=== PATIENT | male | born 1950 | race Caucasian/White ===

== ENCOUNTER 2019-05-11 10:01 | Day surgery (SDC) | payer OTHER, SELFPAY ==
[2019-05-11 10:25] VITALS: BP 112/68; PULSE 55; RESP 18; TEMP 35.4; O2SAT 97
[2019-05-11] MEDS: Lactated Ringers 1,000 ML 80 ML IV (10:35)
[2019-05-11] MEDS: ceFAZolin 1 GM/50 ML BAG IVPB (12:55)
--- NOTE | 2019-05-11 13:06 | BLADDER_PTH ---
PATIENT: Yonatan Cabrera LOC: [facility] U#:[id number] AGE/SX: 68/M ROOM: RE05/11/[address]: Nathanael Hannon MD : [id number] BED: DIS: 05/11/2019 SPEC #: [id number] RECD: 05/11/19 17:59 STATUS: LASHAUN REQ #: [id number] SOWMYA: 05/11/19 13:[address]: Nathanael Hannon DEPT: Surgical Specimen RECD BY: Karen Pugh ENTERED: 05/11/19 18:00 SP TYPE: Bladder OTHR DR: Miky Felipe MD Tissues: 1 - BLADDER BIOPSY Procedures: GROSS AND MICRO LEVEL 4 Comments: [id number]
--- NOTE | 2019-05-11 13:10 | W.PM.DSUDISC ---
Discharge Plan Disposition Patient Disposition: HOME Condition: Stable Discharge Details Reason For Visit: surgery Attending Provider: Nathanael Hannon Primary Care Provider: Miky Felipe Home Meds and New Rx's Prescriptions: No Action multivitamin capsule 1 cap PO DAILY RF: 0 Betimol 5 ML drops 1 drp OU HS RF: 0 acetaminophen [Mapap Extra Strength] 500 MG tablet 500 mg PO PRN PRNRF: 0 Travatan Z 2.5 ML drops 1 drp Ophthalmic HS RF: 0 Discharge Instructions Additional Instructions: No appt needed but ask pt and to call for path report in @ 1 week - his next procedure will depend on the path Activity:: Activity as Tolerated Shower/Bathe:: 24 hours Diet:: As Tolerated Discharge Orders Discharge Orders: Discharge Order (Routine); Ordered 05/11/19 Ordered By: Nathanael Hannon DS: Diagnosis Discharge Diagnosis (1) Bladder cancer: Status: Acute
--- NOTE | 2019-05-12 08:28 | ROE_ITS ---
REPORT OF OPERATIVE PROCEDURE DATE OF PROCEDURE May 11, 2019 PREOPERATIVE DIAGNOSIS Bladder tumor. POSTOPERATIVE DIAGNOSIS Bladder tumor. PROCEDURE Cystoscopy with transurethral resection of small bladder tumor. SURGEON Nathanael Hannon M.D. ANESTHESIA Local. COMPLICATIONS None. FINDINGS Papillary lesion attached to the bladder neck at approximately the 10 o'clock position. HISTORY This is a 68-year-old gentleman who has a history of urothelial cell carcinoma of the bladder. On braeden veillance cystoscopy, he was found to have a recurrence just at the bladder neck. He presents now for transurethral resection of the area. DESCRIPTION OF PROCEDURE The patient was brought to the Operating Room on 05/11/2019. He had requested local anesthesia only. H e was placed in the dorsal lithotomy position. His genitalia was prepped and draped. 2% Xylocaine jel ly was instilled into the urethra to act as a local anesthetic. A #24-Welsh resectoscope sheath was passed through the urethra into the bladder. We utilized an Igle jacob resectoscope with bipolar cautery to excise the visible lesion in its entirety. The lesion was t hen sent to pathology for permanent section. We cauterized the base of the resection site using the coagulation current. The patient tolerated the procedure well with no complications.
== END 2019-05-11 13:40 | disposition home or self-care (01) ==
PROVIDERS: PCP Family Medicine; Visit Provider Urology
PROC: 0TBB8ZZ Excision of Bladder, Via Natural or Artificial Opening Endoscopic (ICD-10-PCS; CPT 52234; principal; 2019-05-11 12:30)
DX: C67.5 Malignant neoplasm of bladder neck (principal)
CPT/HCPCS: 52234; 88305; J0690

== ENCOUNTER 2021-11-30 21:42 | Emergency (ER) | payer MEDICARE, SELFPAY ==
[2021-11-30] VITALS (13 sets, daily range): BP systolic 131–155; BP diastolic 61–68; PULSE 87–103; RESP 18–27; TEMP 36.5; O2SAT 93–99
[2021-11-30 21:57] LABS: Bilirubin Negative (Negative); Blood Negative (Negative); Clarity Clear (Clear); Glucose Negative (Negative); Ketones Negative (Negative); Leukocyte Esterase Negative (Negative); Nitrite Negative (Negative); Urobilinogen 0.2 EU/dL (Up TO 0.2); pH 5.5 (5-8)
--- NOTE | 2021-11-30 22:00 | DI.RAD_ITS ---
Exam(s) XR PORTABLE CHEST AP EXAM: XR PORTABLE CHEST AP CLINICAL HISTORY: cough. TECHNIQUE: 2D digital imaging was performed. COMPARISON: Prior chest CT scan of 10/08/2021 FINDINGS: Heart size is upper normal. The upper mediastinum is not widened. Retrocardiac hiatal hernia again noted. Right lung is clear. There are mild increased markings behind the left side of the heart in the left lower lobe, possibly significant. There are no pleural effusions. No pneumothorax. No pulmonary e angelic. IMPRESSION: Mild increased markings in the left lower lobe retrocardiac region. Appropriate follow-up recommende d. Please note that CT scan of 10/08/2021 did reveal a ground-glass nodular infiltrate in the right lowe r lobe as well as a smaller 3 millimeter nodule lower down in the right lower lobe. Recommend follow -up CT. Findings discussed with ER physician. DATA REPOSITORY: RADIATION DOSE DELIVERED: All CT scans at this facility use at least one of these dose optimization techniques: automated exposure control; mA and/or kV adjustment per patient size (includes targeted e xams where dose is matched to clinical indication); or iterative reconstruction.
--- NOTE | 2021-11-30 22:00 | DI.CT_ITS ---
Exam(s) CT ABDOMEN PELVIS W EXAM: CT ABDOMEN PELVIS W CLINICAL HISTORY: right sided abdominal pain. TECHNIQUE: Imaging Protocol: Axial computed tomography images with coronal and sagittal reformatted images were created and reviewed CONTRAST MATERIAL: Intravenous: Omnipaque 350 Contrast volume:100 ml Oral:/ no COMPARISON: CT RENAL COLIC WO CONTRAST from 04/09/2016 FINDINGS: ABDOMEN: Lung Bases: Normal where visualized. Liver: Enlarged, fatty infiltration. Low-density lesions, likely cysts. Small amount of portal veno us air at the periphery of the liver... No measurable mass. Gallbladder and biliary tract: No radiodense calculus or dilation. Pancreas: Multiple calcifications., no inflammatory process. To stomach and bowel: Moderate size hia michael hernia. Stomach not distended. Spleen: Normal. Kidneys: Normal size, contour and axis. Parapelvic cyst mid left kidney. No radiodense stones or ob structive uropathy. No masses seen. Adrenal glands: No masses seen. Abdominal Aorta: Abdominal portion non-dilated. Atherosclerotic calcification. PELVIS: Bladder: Nearly empty. No gross wall thickening. No calculi.No focal mass. Bowel: Marked inflammation and wall thickening involving the ascending colon. Multiple diverticula a re present. The findings are suspicious for diverticulitis. There is a question of a few tiny surro unding of bubbles of air outside the colonic lumen versus air within small diverticula. . A necrotic mass could also be considered. Appendix normal. Peritoneal cavity: Small amount of fluid low pelvis., no abscess collection.. Bones: Degenerative disc changes greatest L5-S1. Facet degenerative changes. Degenerative stable cy stic lucencies in both acetabula, left greater than right. Subchondral cysts are also seen in the le ft femoral head. Reproductive organs: Within normal limits. Lymph nodes: Unremarkable. Soft tissues: Large right inguinal hernia containing nonobstructed loops of bowel. This was present on the previous exam. Fatty containing left-sided inguinal hernia, small. Tiny fatty containing umb ilical hernia. Impression: Marked wall thickening ascending colon with surrounding inflammation, consistent with diverticulitis. A necrotic mass could also be considered. A small amount of portal venous air seen in the peripher y of the liver near the diaphragm. RADIATION DOSE DELIVERED: 1,165.45mGy.cm Total DLP DATA REPOSITORY: All CT scans at this facility are submitted to the National Radiology Data Registry (NRDR) Dose Index Registry (DIR) with the [employer] (A[employer]). RADIATION OPTIMIZATION: All CT scans at this facility use at least one of these dose optimization te chniques: automated exposure control; mA and/or kV adjustment per patient size (includes targeted exa ms where dose is matched to clinical indication); or iterative reconstruction.
[2021-11-30] MEDS: Normal Saline 1,000 ML 1000 ML IV (22:05)
--- NOTE | 2021-11-30 22:07 | ED.GENADUL_ITS ---
Discharge Plan Disposition Patient Disposition: HOME Condition: Stable Discharge Details Clinical Impression: Abdominal pain, Diverticulitis Primary Care Provider: Kassy Urbina ED Provider: Jeronimo Guillen Home Meds and New Rx's Prescriptions: New metronidazole 500 mg tablet 500 mg PO Q8H Qty: 21 RF: 0 ciprofloxacin HCl 500 mg tablet 500 mg PO BID Qty: 14 RF: 0 Continued multivitamin capsule 1 cap PO DAILY RF: 0 acetaminophen [Mapap Extra Strength] 500 MG tablet 500 mg PO PRN PRNRF: 0 Discharge Instructions Instructions: Diverticulitis (ED) Additional Instructions: you can take 1000mg tylenol and 600mg ibuprofen every 6 hours as needed do not drink alcohol or drive if you take the oxycodone follow up with your primary care provider within 1 week if you feel more ill, have severe worsening pain or fever return to the [facility] department Medical Decision Making 71 yo male chronic smoker with prior history of bladder cancer treated surgically via cystoscopy, who comes in with right sided abdominal pain starting around 5pm tonight. He denies vomit, fevers, chills, dyspnea or chest pain. He does state family memebers have recently tested positive for covid and he does have a dry cough that he is not sure is changed from his baseline smoker's cough. He is vaccinated and has a booster for covid. He is in no distress on exam. He does have a reducible umbilical hernia that is not tender and also has a hernia in the right inguinal canal that is not tender or warm to touch and no erythema and states he has had these hernias for years. He is tender with palpation tot he rlq not near his hernia, no testicle tenderness or swelling. Given location of pain concern for appendicitis, will obtain labs and CT to further evaluate, and given his covid exposure and cough obtain covid test and cxr. labs show wbc of 13, otherwise no acute findings, ct shows no evidence of appendicitis but does show evidence of diverticulitis. On repeat exam he is sleeping and states pain significantly improved. Has mild tenderness in the rlq and llq, no guarding or rebound. He is stable for d/c, will place on antibiotics and advised to f/u with pcp and return precautions given Differential Diagnosis Differential Diagnosis: appendicitis, sbo, pancreatitis Medical Records Medical records reviewed: Yes I reviewed the patient's medical records. Imaging Data Radiologic Study: Attestation: I personally reviewed and interpreted this imaging study as follows: Imaging: X-Ray Radiologist's impression: no acute findings Radiologic Study #2: Attestation: I personally reviewed and interpreted this imaging study as follows: Imaging: CT Scan Radiologist's impression: IMPRESSION: Mural thickening and adjacent inflammatory change of the ascending colon suggesting acute diverticulitis versus less likely focal infectious/inflammatory colitis . Lab Data Lab results reviewed: Yes I reviewed the patient's lab results. HPI General Mode of arrival: ambulatory . Date/Time Provider Initiated Documentation: 11/30/21 21:44 . Limitations to Documentation: no limitations . Information obtained by: patient . History of Present Illness 71 year old M presents to the emergency department with the chief complaint of abdominal pain, described as severe, with intensity rated at 8. Quality is described as sharp, and is localized to the abdomen. Patient reports no radiation. Patient started experiencing this hour(s) (5) and it has been constant. No relieving factors improve symptom(s), No exacerbating factors reported . Patient notes cough. Patient did receive the following treatments prior to arrival, none Related Data Home Medications Medication Instructions Recorded Confirmed acetaminophen [Mapap Extra 500 mg PO PRN PRN 12/17/16 11/30/21 Strength] multivitamin 1 cap PO DAILY 09/23/18 11/30/21 ciprofloxacin HCl 500 mg PO BID #14 tab 11/30/21 metronidazole 500 mg PO Q8H #21 tab 11/30/21 Previous Rx's Medication Instructions Recorded ciprofloxacin HCl 500 mg PO BID #14 tab 11/30/21 metronidazole 500 mg PO Q8H #21 tab 11/30/21 Allergies Allergy/AdvReac Type Severity Reaction Status Date / Time No Known Allergies Allergy Unverified 11/30/21 22:20 General Stated Complaint: Abd Prob LATOSHA: 3 Review of Systems All systems reviewed & are unremarkable except as noted in HPI and below Constitutional Constitutional: Denies chills, Denies fever(s) and Denies weakness Cardiovascular Cardiovascular: Denies chest pain and Denies dyspnea Respiratory Respiratory: Denies dyspnea Gastrointestinal Gastrointestinal: Denies vomiting Musculoskeletal Musculoskeletal: Denies joint swelling Neurologic Neurologic: Denies weakness PFSH All Active Problems (Updated 11/30/21 @ 23:14 by Jeronimo Guillen MD) Abdominal pain (Acute) Diverticulitis (Chronic) Parapelvic renal cyst (Acute) Renal mass (Acute) 03/2021- noted on CT- US recommended and ordered Abnormal chest CT (Acute) 03/2021- repeat in 6 months Bladder cancer (Acute) 2015 Bilateral inguinal hernia, without obstruction or gangrene, not specified as recurrent (Acute 04/09/16) Medical History (Updated 11/30/21 @ 23:14 by Jeronimo Guillen MD) Bladder tumor (12/17/16) DR. RAHMAN Malignant neoplasm of overlapping sites of bladder (07/15/16) paillary urothelial, non invasive, multiple sites Polymyalgia rheumatica (11/11/15) Surgical History Hx of cystoscopy Hx of foot surgery Hx of transurethral resection of prostate Social History Smoking/Tobacco Use Status: Current every day Tobacco Type: cigarettes Smoking risk assessment performed?: Yes Alcohol Intake: current Alcohol Intake frequency: holidays/special occasions only Drug use: Never Substance use type: does not use Details: alcohol: t-4, 3 maximo lemonade Do you feel safe at home: Yes Do you feel safe in your relationship?: Yes Exam Const General: no acute distress Orientation: alert HENMT Head: normal to inspection Ears: external ears normal General nose exam: external nose normal Mouth: moist mucous membranes Eyes General: appearance normal, both eyes and all related structures Neck Neck: normal visual inspection Resp Effort & Inspection: normal respiratory effort and able to speak in complete sentences Cardio Rate: regular rate GI Palpation: soft and tender Skin General skin exam: no rashes or lesions noted Neuro General: patient alert and patient oriented x3 Extrem General: normal to inspection Psych Mental Status: mental status grossly normal Course Vital Signs Vital signs: Vital Signs Temperature 36.5 C 11/30/21 21:45 Pulse 101 H 11/30/21 21:45 Respiratory Rate 20 11/30/21 21:45 Blood Pressure 154/68 H 11/30/21 21:45 Pulse Oximetry 99 11/30/21 21:45 Temperature 36.5 C 11/30/21 21:45 Temperature Source Skin 11/30/21 21:45 Pulse 101 H 11/30/21 21:45 Respiratory Rate 20 11/30/21 21:45 Blood Pressure 154/68 H 11/30/21 21:45 Blood Pressure Position Supine 11/30/21 21:45 Pulse Oximetry 99 11/30/21 21:45 Oxygen Delivery Method Room Air 11/30/21 21:45 Oxygen Flow Rate 0 11/30/21 21:45 Pain Level 5 11/30/21 21:45 Lab/Test Results Lab/Test Results: Laboratory Tests Range/Units 11/30/21 21:50 Urine Color (Yellow) Yellow Urine Clarity (Clear) Clear Urine pH (5-8) 5.5 Ur Specific Wrights (1.005-1.025) 1.020 Urine Protein (Negative) mg/dL Negative Urine Ketones (Negative) mg/dL Negative Urine Blood (Negative) Negative Urine Nitrite (Negative) Negative Urine Bilirubin (Negative) Negative Urine Urobilinogen (Up TO 0.2) EU/dL 0.2 Ur Leukocyte Esterase (Negative) Negative Urine Glucose (Negative) mg/dL Negative
[2021-11-30 22:16] LABS: Abs Immature Grans 0.05 10^3/uL (0.0-0.06); Absolute Basophil Count 0.03 10^3/uL (0.0-0.2); Absolute Lymphocyte Count 1.62 10^3/uL (1.2-3.4); Absolute Monocyte Count 0.64 10^3/uL (0.1-0.8); BE (Venous) -1 mmol/L (-2-3); Basophils % 0.2; Eosinophils % 0.6; HCO3 (Venous) 26 mmol/L (23-28); HCT 42.2 % (40.0-50.0); HGB 14.1 g/dL (13.5-17.5); Immature Grans % 0.4; Lymphocytes % 11.6; MCH 32.6 pg (27.0-33.0); MCHC 33.4 % (32.0-36.0); MCV 97.7 fL (80-95); MPV 8.7 fL (8.0-11.0); Monocytes % 4.6; Neutrophils % 82.6; Nucleated RBC 0 %; O2 Sat (Venous) 56 %; Platelet Count 282 10^3/uL (130-400); RBC 4.32 10^6/uL (4.36-5.78); RDW 12.3 % (11.8-14.1); RDW-SD 44.7 fL; TCO2 (Venous) 23 mmol/L (24-29); WBC 13.93 10^3/uL (4.4-10.8); pCO2 (Venous) 49 mmHg (41-51); pH (Venous) 7.33 (7.31-7.41); pO2 (Venous) 30 mmHg
[2021-11-30 22:17] LABS: Absolute Eosinophil Count 0.08 10^3/uL (0.0-0.7); Absolute Neutrophil Count 11.51 10^3/uL (1.2-6.7); Lactate 1.3 mmol/L (0.6-1.4)
[2021-11-30] MEDS: HYDROmorphone 2 MG/ML VIAL 1 MG IVP (22:19)
[2021-11-30 22:22] LABS: Source Nasal/Nares
[2021-11-30] MEDS: Omnipaque 350 MG/ML 100 ML BTL IJ (22:22)
[2021-11-30 22:32] LABS: ALT 22 U/L (16-63); AST 15 U/L (15-37); Albumin 3.6 g/dL (3.4-5.0); Alkaline Phosphatase 67 U/L (46-116); Anion Gap 8.8 mmol/L (3-11); BUN 13 mg/dL (7-18); Bilirubin, Direct 0.2 mg/dL (0.0-0.2); Bilirubin, Total 0.9 mg/dL (0.2-1.0); CO2 26.2 mmol/L (21.0-32.0); Calcium 8.7 mg/dL (8.5-10.1); Chloride 100 mmol/L (98-107); Glucose 136 mg/dL (74-106); Lipase 100 U/L (73-393); Magnesium 1.7 mg/dL (1.8-2.4); Potassium 3.8 mmol/L (3.5-5.1); Sodium 135 mmol/L (136-145); Total Protein 7.5 g/dL (6.4-8.2)
--- NOTE | 2021-11-30 22:49 | DI.VRAD_ITS ---
PROCEDURE INFORMATION: Exam: XR Chest Exam date and time: 11/30/2021 10:08 PM Age: 71 years old Clinical indication: Cough TECHNIQUE: Imaging protocol: XR of the chest. Views: 1 view. COMPARISON: CT CHEST WO 10/08/2021 2:59 PM FINDINGS: Lungs: Unremarkable. No consolidation. Pleural spaces: Unremarkable. No pleural effusion. No pneumothorax. Heart/Mediastinum: Unremarkable. No cardiomegaly. Bones/joints: Unremarkable. IMPRESSION: No acute findings. Dictated and Authenticated by: Jeronimo Mansfield MD. Ordering:IVONE Decker MD
--- NOTE | 2021-11-30 22:56 | DI.VRAD_ITS ---
PROCEDURE INFORMATION: Exam: CT Abdomen And Pelvis With Contrast Exam date and time: 11/30/2021 10:08 PM Age: 71 years old Clinical indication: Abdominal pain; Localized; Patient HX: Right sided pain TECHNIQUE: Imaging protocol: Computed tomography of the abdomen and pelvis with contrast. Radiation optimization: All CT scans at this facility use at least one of these dose optimization techniques: automated exposure control; mA and/or kV adjustment per patient size (includes targeted exams where dose is matched to clinical indication); or iterative reconstruction. Contrast material: OMNIPAQUE 350; Contrast volume: 100 ml; Contrast route: INTRAVENOUS (IV); COMPARISON: CT RENAL COLIC WO CONTRAST 04/09/2016 8:37 AM FINDINGS: Diaphragm: Moderate hiatal hernia. Liver: Hepatic steatosis. Gallbladder and bile ducts: Normal. No calcified stones. No ductal dilation. Pancreas: Pancreatic calcifications consistent with sequela of chronic pancreatitis, no evidence of acute pancreatitis. Spleen: Normal. No splenomegaly. Adrenal glands: Normal. No mass. Kidneys and ureters: Left renal simple cysts up to 3.8 cm, no further follow-up required. No hydronephrosis. Stomach and bowel: Colonic diverticulosis. Mural thickening and adjacent inflammatory change of the ascending colon suggesting acute diverticulitis versus less likely focal infectious/inflammatory colitis . Appendix: No evidence of appendicitis. Intraperitoneal space: Unremarkable. No free air. No significant fluid collection. Vasculature: Unremarkable. No abdominal aortic aneurysm. Lymph nodes: Unremarkable. No enlarged lymph nodes. Urinary bladder: Unremarkable as visualized. Reproductive: Unremarkable as visualized. Bones/joints: Unremarkable. No acute fracture. Soft tissues: Bowel containing right inguinal hernia. IMPRESSION: Mural thickening and adjacent inflammatory change of the ascending colon suggesting acute diverticulitis versus less likely focal infectious/inflammatory colitis . Dictated and Authenticated by: Jeronimo Mansfield MD. Ordering:IVONE Decker MD
[2021-11-30 23:03] LABS: COVID-19 PCR Negative (Negative)
[2021-11-30] MEDS: metroNIDAZOLE 500 MG TAB PO (23:24)
[2021-11-30] MEDS: Ciprofloxacin 500 MG TAB PO (23:24)
== END 2021-11-30 23:35 | disposition home or self-care (01) ==
PROVIDERS: Emergency Provider Emergency Medicine; PCP Nurse Practitioner
DX: R10.31 Right lower quadrant pain (principal); K57.92 Diverticulitis of intestine, part unspecified, without perforation or abscess without bleeding; R05.1 Acute cough; F17.210 Nicotine dependence, cigarettes, uncomplicated; R91.8 Other nonspecific abnormal finding of lung field; K42.9 Umbilical hernia without obstruction or gangrene; Z20.822 Contact with and (suspected) exposure to COVID-19
CPT/HCPCS: 36415; 80053; 82805; 83690; 87635; 96361; 96374; 99285; 71045; 74177; 81003; 82248; 83605; 83735; 85025; 99284; J3490

== ENCOUNTER 2021-12-10 03:16 | Outpatient (CLI) | payer MEDICARE, SELFPAY ==
[2021-12-10 10:37] LABS: Hemoglobin A1C 6.1 % (<5.7)
[2021-12-10 12:02] LABS: ALT 35 U/L (16-63); AST 17 U/L (15-37); Albumin 3.4 g/dL (3.4-5.0); Alkaline Phosphatase 65 U/L (46-116); Anion Gap 5.6 mmol/L (3-11); BUN 18 mg/dL (7-18); Bilirubin, Total 0.4 mg/dL (0.2-1.0); CO2 27.4 mmol/L (21.0-32.0); Calcium 8.6 mg/dL (8.5-10.1); Calculated LDL 41 mg/dL (<100); Chloride 102 mmol/L (98-107); Cholesterol 92 mg/dL (<200); Glucose 233 mg/dL (74-106); HDL Cholesterol 33 mg/dL (40-60); Potassium 4.5 mmol/L (3.5-5.1); Sodium 135 mmol/L (136-145); Total Protein 7.1 g/dL (6.4-8.2); Triglyceride 91 mg/dL (<150)
== END 2021-12-10 03:17 | disposition home or self-care (01) ==
PROVIDERS: PCP Nurse Practitioner; Visit Provider Nurse Practitioner
DX: D49.4 Neoplasm of unspecified behavior of bladder (principal); Z13.1 Encounter for screening for diabetes mellitus; Z13.6 Encounter for screening for cardiovascular disorders
CPT/HCPCS: 36415; 80053; 80061; 83036

== ENCOUNTER 2021-12-25 01:57 | Outpatient (CLI) | payer MEDICARE, SELFPAY ==
--- NOTE | 2021-12-25 06:45 | DI.CT_ITS ---
Exam(s) CT CHEST HIGH RESOLUTION EXAM: CT CHEST HIGH RESOLUTION CLINICAL HISTORY: abnormal CXR, ground glass OPACITY,R93.89,R91.8 TECHNIQUE: CT examination of the chest was performed utilizing standard helical scanning with additi onal high-resolution imaging period. COMPARISON: CT CT CHEST WO from 10/08/2021 FINDINGS: Images obtained through the upper abdomen show unremarkable appearance of visualized portions of the liver and spleen. There is extensive pancreatic calcification consistent with chronic pancreatitis. Adrenals appear normal bilaterally. There is a probable upper pole left renal cyst. Note is made of coronary artery calcification. There is no mediastinal or hilar adenopathy. Mediastinal vascular structures appear intact by noncon trast criteria. Tracheobronchial tree appears intact. No pleural effusion or pleural-based mass. There are central lobular pulmonary emphysematous changes with apical blebs noted bilaterally. High- resolution imaging shows no significant additional pulmonary parenchymal abnormality. Previously described 5 millimeter ground-glass opacity of the right lower lobe is essentially unchang ed comparison with prior examination of September 2021. 4 millimeter right upper lobe medially locate d nodule is also unchanged. No new intrapulmonary nodule seen.. IMPRESSION: Stable appearance of pulmonary opacities/nodules as described above. Moderate central lobular pulmon lul emphysematous changes with apical blebs bilaterally. No additional significant findings.. RADIATION DOSE DELIVERED: 656.06mGy.cm Total DLP CTDIvol 656.06mGy.cm Total DLP CTDIvol RADIATION OPTIMIZATION: All CT scans at this facility use at least one of these dose optimization te chniques: automated exposure control; mA and/or kV adjustment per patient size (includes targeted exa ms where dose is matched to clinical indication); or iterative reconstruction.
== END 2021-12-25 02:17 ==
PROVIDERS: PCP Nurse Practitioner; Visit Provider Nurse Practitioner
DX: R91.8 Other nonspecific abnormal finding of lung field (principal); R93.89 Abnormal findings on diagnostic imaging of other specified body structures
CPT/HCPCS: 71250

== ENCOUNTER 2022-02-13 03:37 | Outpatient (CLI) | payer MEDICARE, SELFPAY ==
[2022-02-13 07:49] LABS: HCT 41.4 % (40.0-50.0); HGB 13.8 g/dL (13.5-17.5); MCH 31.4 pg (27.0-33.0); MCHC 33.3 % (32.0-36.0); MCV 94.3 fL (80-95); MPV 8.5 fL (8.0-11.0); Platelet Count 282 10^3/uL (130-400); RBC 4.39 10^6/uL (4.36-5.78); RDW 13.1 % (11.8-14.1); RDW-SD 45.4 fL; WBC 6.48 10^3/uL (4.4-10.8)
[2022-02-13 07:52] LABS: ESR 23 mm/hr (0-20)
[2022-02-13 08:35] LABS: ALT 24 U/L (16-63); AST 13 U/L (15-37); Albumin 3.8 g/dL (3.4-5.0); Alkaline Phosphatase 81 U/L (46-116); Anion Gap 11.8 mmol/L (3-11); BUN 18 mg/dL (7-18); C-Reactive Protein 0.35 mg/dL (0.0-0.3); CO2 24.2 mmol/L (21.0-32.0); Calcium 8.8 mg/dL (8.5-10.1); Calculated LDL 65 mg/dL (<100); Chloride 105 mmol/L (98-107); Cholesterol 115 mg/dL (<200); Glucose 120 mg/dL (74-106); HDL Cholesterol 30 mg/dL (40-60); Potassium 4.3 mmol/L (3.5-5.1); Sodium 141 mmol/L (136-145); TSH (W/Ref FT4) 1.46 uIU/mL (0.36-3.74); Total Protein 7.6 g/dL (6.4-8.2); Triglyceride 101 mg/dL (<150)
[2022-02-13 08:46] LABS: Creatine Kinase 41 U/L (39-308)
[2022-02-16 14:47] LABS: Lyme Ab w Rflx to Lyme Confirm Negative (Negative)
== END 2022-02-13 03:38 | disposition home or self-care (01) ==
LOC: LBO 03:37
PROVIDERS: Family Medicine; PCP Nurse Practitioner; Visit Provider Nurse Practitioner
DX: I10 Essential (primary) hypertension (principal); M25.50 Pain in unspecified joint; M79.10 Myalgia, unspecified site; R60.9 Edema, unspecified; R73.9 Hyperglycemia, unspecified; Z13.6 Encounter for screening for cardiovascular disorders
CPT/HCPCS: 36415; 80053; 80061; 82550; 85027; 85652; 84443; 86140; 86431; 86618

== ENCOUNTER → 2022-05-07 09:24 | Outpatient (BNVA) | payer MEDICARE, SELFPAY | PROVIDERS: PCP Nurse Practitioner; Referring Provider Nurse Practitioner; Visit Provider Physical Therapy Assistant | DX: Z12.11 Encounter for screening for malignant neoplasm of colon (principal) ==

== ENCOUNTER → 2022-05-08 13:02 | Outpatient (BNVA) | payer MEDICARE, SELFPAY | PROVIDERS: PCP Nurse Practitioner; Referring Provider Nurse Practitioner; Visit Provider Urology | DX: C67.9 Malignant neoplasm of bladder, unspecified (principal) | CPT/HCPCS: 52000; 81003 ==

== ENCOUNTER 2022-05-11 10:45 | Day surgery (SDC) | payer MEDICARE, SELFPAY ==
--- NOTE | 2022-05-11 07:02 | COLE_ITS ---
Colonoscopy Report Date of procedure: 05/11/22 Pre-op diagnosis general: Colon cancer screening Post-op diagnosis procedure note: other (aborted due to inadequate prep) Procedure: Colonoscopy Surgeon: Tali Zurita Anesthesia Type: General:No Airway Estimated blood loss (mL): 0 Pathology: none sent Complications: None Disposition: same day Indications: The patient is here for Colonoscopy pre-op. His last screening was in 2006 and was unremarkable. He has no family history of colon cancer. He has not had any bowel habit changes.? Of note patient does have a large right inguinal hernia.? Patient does not wish to discuss surgical repair.? Discussed that this may impa ct his colonoscopy if there is bowel contained in this.? Patient wishes to proceed and he will discuss possible surgical intervention with the surgeon on the day of his colonoscopy. -Discussed colonoscopy bowel prep as well as the procedure. Discussed possible complications of the procedure to include bleeding, pain, perforation, missed small lesion/polyp, sore throat, aspiration and adverse reaction to the medications. Questions were answered to patient?s satisfaction. No guarantees were implied or given.? Prep: Miralax/Dulcolax Findings: Inadequate prep. Lost of stool throughout the colon Procedure Description: After informed consent was obtained the patient was taken to the procedure room and placed in a left decubitous position. Monitors were applied and a time out was done. The patients name, date of , procedure, allergies to medications and metal in their body was reviewed. The patient was then sedated. Once sedated and comfortable a rectal exam was done. External exam was normal. Internal exam revealed a normal sphincter tone and no palpable masses. The prostate felt enlarged but smooth. The scope was then introduced and advanced to the Transverse colon. There further towards the cecum I got the more stool there was to the point were I wo uld have missed polyps If there were any. The procedure was aborted. The scope was removed and the patient was woken up and taken back to Same day surgery in stable condition. The patient tolerated the procedure well and there were no immediate complications. Follow up: 2-3 months for repeat. We will do golytely as a prep next time
--- NOTE | 2022-05-11 07:03 | PDOC.DSDIS_ITS ---
Discharge Plan Disposition Patient Disposition: HOME Condition: Good Discharge Details Reason For Visit: colonoscopy Attending Provider: Tali Zurita Primary Care Provider: Kassy Urbina Home Meds and New Rx's Prescriptions: Continued multivitamin capsule 1 cap PO DAILY Label Comments: pt. reports it is [place], herbal hawthorn 500 mg capsule 500 mg PO DAILY acetaminophen [Mapap Extra Strength] 500 MG tablet 500 mg PO PRN PRN naproxen 500 mg tablet 1 tab PO BID Label Comments: TAKE ONE TABLET BY MOUTH TWICE A DAY WITH BREAKFAST AND DINNER Discontinued bisacodyl [Dulcolax (bisacodyl)] 5 mg tablet,delayed release (DR/EC) 5 mg PO ONCE Qty: 4 0RF Rx Instructions: Take according to provider's instructions for colonoscopy prep. polyethylene glycol 3350 17 gram/dose powder 17 g PO ONCE Qty: 238 0RF Rx Instructions: To be taken as directed by prescriber's office for colonoscopy prep. Discharge Instructions Additional Instructions: Findings: Unfortunately the farther up I got the more stool there was. There was too much stool to do a complete colonoscopy. I dont want to miss a polyp. We will reschedule you and do a different prep as this one didnt work. Follow up: 2-3 months Please call if you develop: fevers >101.5 Nausea or Vomiting Abdominal pain that is not transient Rectal bleeding that is more then a tbsp A hard abdomen and inability to pass gas DAY [facility] UNIT POST ENDOSCOPY INSTRUCTIONS Instructions for everyone who is given Anesthesia: For your safety, please do the following for the next 24 Hours: a. Do not drive or operate dangerous equipment b. Do not drink alcohol beverages or use any recreational drugs for the first 24 hours or while taking pain medications. The medications in your body may have a reaction that can be dangerous. c. Do not make any important decisions or sign any important papers 1. Generally there are no restrictions on your activity after a day or so has gone by, but you may feel a bit fatigued for a few days. 2. After you arrive home you may have a light meal and return to a normal diet as you can tolerate it without feeling sick to your stomach. 3. After surgery, you may feel pain or discomfort. This should be only transient, but if it persists please contact your doctor. 4. If there are any questions regarding the findings of your procedure, please feel free to contact your doctor. 6. If you are unable to contact your doctor with a problem, contact the hospital at [phone]. 7. Continue all your regular medications unless directed otherwise. I understand the above instructions and have no questions. Signature of Patient or Responsible Adult Escort Date/Time Name of Responsible Adult Escort Signature of Nurse Date/Time Activity:: Activity as Tolerated Diet:: As Tolerated Discharge Orders Discharge Orders: Discharge Order (Routine); Ordered 05/11/22 Ordered By: Tali Zurita
[2022-05-11 10:58] VITALS: BP 119/81; PULSE 82; RESP 17; TEMP 36.6; O2SAT 97
[2022-05-11] MEDS: Lactated Ringers 1,000 ML 80 ML IV (11:15)
--- NOTE | 2022-05-11 11:56 | W.ANESPRE ---
General Info Date of Service Date Performed: 05/11/22 Height: 5 ft 10 in Weight: 94.1 kg Body Mass Index (BMI): 29.7 Surgical Procedure: Operation Date: 05/11/22 12:50 Proposed Procedure Side Surgeon p Colonoscopy Tali Zurita MD Meds Allergies and Home Medications Allergies Allergy/AdvReac Type Severity Reaction Status Date / Time No Known Allergies Allergy Unverified 05/11/22 11:07 Home Medication Medication Instructions Recorded acetaminophen 500 mg tablet (Mapap 500 mg PO PRN PRN 12/17/16 Extra Strength) multivitamin 1 cap PO DAILY 09/23/18 hawthorn 500 mg capsule 500 mg PO DAILY 01/08/22 bisacodyl 5 mg tablet,delayed 5 mg PO ONCE #4 tabs 05/07/22 release (Dulcolax (bisacodyl)) polyethylene glycol 3350 17 17 g PO ONCE #238 grams 05/07/22 gram/dose oral powder naproxen 500 mg tablet 1 tab PO BID 05/08/22 Current Visit Medications: Current Medications Generic Name Dose Route Start Last Admin Trade Name Freq PRN Reason Stop Dose Admin Hyoscyamine Sulfate 0.125 mg 05/11/22 07:04 Hyoscyamine 0.125 Mg Sl/Oral/Chew SL DIRECTED PRN Ringer's Solution 1,000 mls @ 80 mls/hr 05/11/22 06:00 05/11/22 11:15 IV 06/07/22 23:59 80 mls/hr INFUSION JOHNNY Administration IV Miscellaneous Supplies 1 each 05/11/22 06:00 Iv Access IV 06/07/22 23:59 DIRECTED JOHNNY Ondansetron HCl 4 mg 05/11/22 07:04 Ondansetron 4 Mg/2 Ml Vial IVP Q4H PRN PRN Nausea / Vomiting Sodium Chloride 0 ml 05/11/22 06:00 Normal Saline Flush 10 Ml Syr IV 06/07/22 23:59 PRN PRN Sodium Chloride 0 ml 05/11/22 06:00 Normal Saline 10 Ml Vial IJ 06/07/22 23:59 DIRECTED PRN Sterile Water 0 ml 05/11/22 06:00 Water,Injection,Sterile 10 Ml Vial IJ 06/07/22 23:59 DIRECTED PRN PFSH Active Problems Active Problems: Problem Status Onset Code Diverticulitis large intestine K57.32 Medical History Medical History Abnormal chest CT 03/2021- repeat in 6 months 09/2021- no change repeat 1 year Bilateral inguinal hernia, without obstruction or gangrene, not specified as recurrent (04/09/16) Bladder cancer 2016 Bladder tumor (12/17/16) DR. 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 Prediabetes Renal mass 03/2021- noted on CT- US recommended and ordered 05/12- parapelvic cyst Tobacco dependence 01/2022, 11/24 ppd, hx of about 40 pk yr Surgical History Surgical History Hx of cystoscopy Hx of foot surgery Hx of transurethral resection of prostate Tobacco Smoking/Tobacco Use Status: Current every day Tobacco Type: cigarettes Passive smoking exposure: Yes Second hand exposure: Yes Alcohol Alcohol Intake: current Alcohol intake frequency: holidays/special occasions only Alcohol type: beer Substance Use Substance use: Never Substance use type: does not use Details: alcohol: t-4, 3 maximo lemonade Vital Signs and Lab Results Vital Signs Most Recent Vital Signs in EMR: Most Recent Vital Signs Temp Pulse Resp BP Pulse Ox 36.6 C 82 17 119/81 97 05/11/22 10:58 05/11/22 10:58 05/11/22 10:58 05/11/22 10:58 05/11/22 10:58 Lab Results Blood Type / Crossmatch: No Data to Display Complete Blood Count: No Data to Display Complete Metabolic Panel: No Data to Display Liver Function Panel: No Data to Display Coagulation Panel: No Data to Display Cardiac Panel: No Data to Display Arterial Blood Gas: No Data to Display Venous Blood Gas: No Data to Display Pancreas Panel: No Data to Display Thyroid Panel: No Data to Display Infectious Disease: No Data to Display Blood Cultures: No Data to Display Toxicology Panel: No Data to Display Anesthesia Assessment and Plan Anesthesia History Personal History: No History of Anesthesia Complications Family History: No Family History of Anesthesia Complications Exercise Tolerance Exercise Tolerance: Metabolic Equivalents>4 Pertinent Negatives Pertinent Negatives: No Symptoms of GERD, No Major Cardiovascular Symptoms or Complaints, No Major Pulmonary Symptoms or Complaints and No History of CVA/TIA Cardiac & Pulmonary Exam Cardiac Exam: Normal S1/S2 Heart Sounds Pulmonary Exam: Clear Bilateral Breath Sounds Implantable Cardiac Device Does patient have a Pacemaker or an ICD?: No Airway Exam Known Difficult Airway: No Mallampati Class: 2 Mouth Opening: Normal (> 3cm) Thyromental Distance: Greater than 3 cm Facial Hair: Full Salvador Neck Range of Motion: Full ROM Neck Circumference: Normal Teeth Condition: Edentulous ASA Classification ASA Score: ASA 2 Emergency Case?: No NPO Status NPO Status: NPO Clears >2 hours, Solids >8 hours Anesthesia Plan Resuscitation Status: Full Code Anesthesia Technique: General Anesthesia Airway Planned: Natural Airway Monitors Used: Standard Monitors
[2022-05-11 12:02] VITALS: BMI 29.7
[2022-05-11 12:56] VITALS: BP 105/65; PULSE 69; RESP 16; TEMP 36.7; O2SAT 95
[2022-05-11 13:14] VITALS: BP 123/74; PULSE 73; RESP 18; TEMP 36.7; O2SAT 97
--- NOTE | 2022-05-11 13:19 | W.ANESPOSTOP ---
Postoperative Evaluation Date, Time and Location Date Performed: 05/11/22 Time Performed: 13:19 Patient Location: Day Surgery Unit Vital Signs Most Recent Imported Vital Signs: Most Recent Vital Signs Temp Pulse Resp BP Pulse Ox 36.7 C 73 18 123/74 97 05/11/22 13:14 05/11/22 13:14 05/11/22 13:14 05/11/22 13:14 05/11/22 13:14 Pain Score Most Recent Pain Score: Most Recent Pain Score Pain Level 0 05/11/22 12:56 Assessment Mental Status: Awake (Alert & Oriented to Patient Baseline) Airway and Respiratory Function: Patent airway with normal (patient baseline) respiratory exam Cardiovascular Function: Hemodynamically Stable Hydration Status: Adequately Hydrated Nausea & Vomiting: No Nausea or Vomiting Pain: Pt. Denies Any Pain Peripheral Nerve Block: Patient did not receive a nerve block
== END 2022-05-11 13:45 | disposition home or self-care (01) ==
PROVIDERS: PCP Nurse Practitioner; Visit Provider Surgery
PROC: 0DJD8ZZ Inspection of Lower Intestinal Tract, Via Natural or Artificial Opening Endoscopic (ICD-10-PCS; CPT 45378; principal; 2022-05-11 12:45)
DX: Z12.11 Encounter for screening for malignant neoplasm of colon (principal); F17.210 Nicotine dependence, cigarettes, uncomplicated; C67.8 Malignant neoplasm of overlapping sites of bladder
CPT/HCPCS: G0121

== ENCOUNTER 2022-07-13 11:26 | Outpatient (CLI) | payer MEDICARE, SELFPAY ==
--- NOTE | 2022-07-13 11:15 | DI.RAD_ITS ---
Exam(s) XR HIP LT COMPLETE AP PELVIS EXAM: XR HIP LT COMPLETE AP PELVIS CLINICAL HISTORY: left hip pain. TECHNIQUE: 2D digital imaging was performed of the left hip. Two views were obtained. AP pelvis an d lateral left hip views were obtained. COMPARISON: No exams were available for comparison FINDINGS: BONES: No acute fracture is present. No bony destructive lesion is seen. JOINTS: No dislocation present. There is marked narrowing of the left hip. Subchondral cysts and jonathan tabular hypertrophy are noted. In the right hip, there is joint space narrowing, subchondral scleros is and cysts. SOFT TISSUE: Normal. IMPRESSION: Marked osteoarthritis of the left hip. DATA REPOSITORY: RADIATION DOSE DELIVERED:
== END 2022-07-13 11:27 | disposition home or self-care (01) ==
LOC: DIORS 11:27
PROVIDERS: PCP Nurse Practitioner; Referring Provider Nurse Practitioner; Visit Provider Student in an Organized Health Care Education/Training Program
DX: M16.11 Unilateral primary osteoarthritis, right hip (principal); M16.12 Unilateral primary osteoarthritis, left hip; I69.320 Aphasia following cerebral infarction
CPT/HCPCS: 99213; 73502

== ENCOUNTER 2022-07-23 04:11 | Outpatient (CLI) | payer MEDICARE, SELFPAY ==
--- NOTE | 2022-07-23 09:00 | DI.RAD_ITS ---
Exam(s) RF JOINT INJECTION FLUORO GUID EXAM: RF JOINT INJECTION FLUORO GUID CLINICAL HISTORY: L HIP INJ UNDER FLUORO, lt hip pain, M25.552 TECHNIQUE: Fluoroscopy provided. Radiologist not present. CONTRAST MATERIAL: None COMPARISON: No exams were available for comparison FINDINGS: Fluoroscopy was provided for Dr. Levy during therapeutic left hip injection.. Submitted image(s) reveal needle placement at junction of the femoral head and neck. Please refer to the procedure report for complete details. Cumulative Dose: Ka,r=0.481 mGy IMPRESSION: RADIATION DOSE DELIVERED:
--- NOTE | 2022-07-23 15:23 | W.PROCNOTE ---
Date of service: 07/23/22 Time of Service: 15:15 Procedure Note Date of procedure: 07/23/22 Procedure: Left Hip Injection with Fluoroscopic Guidance Surgeon/Proceduralist/Physician: Jose De Jesus Levy Procedure Diagnosis: Left Hip Osteoarthritis Procedure Indications: Francisco Javier has had persistent pain of the LEFT hip and groin. Noninvasive measures have been tried. To serve as both diagnostic and therapeutic, an injection under fluoroscopy was recommended. I had discussed the risks of the procedure and the patient elected to proceed. Procedure Description: Francisco Javier was greeted in the flouroscopy room. The correct side was identified and the consent was reviewed with the patient and signed. The patient was then placed in the supine position on the fluoroscopy table. The LEFT hip was then prepped with Chloraprep. The anterolateral injection starting point was identiifed by bony landmarks and fluoroscopy. The skin and soft tissue in the tract of the injection was anesthetized with 1% Lidocaine. A spinal needle was then inserted deep into the hip joint at the level of the lateral femoral neck under fluoroscopic guidance. A small amount of Omnipaque solution was injected to confirm intraarticular placement. Once confirmed, the hip was injected with 5cc of 0.5% Bupivicaine and 80mg of Depo-Medrol. A bandaid was placed on the injection site. The patient tolerated the procedure well and noted improvement in pre-injection pain.
== END 2022-07-23 04:31 ==
LOC: DI 04:12
PROVIDERS: PCP Nurse Practitioner; Visit Provider Student in an Organized Health Care Education/Training Program
DX: M25.552 Pain in left hip (principal)
CPT/HCPCS: 20610; 77002

== ENCOUNTER 2022-07-31 00:18 | Outpatient (CLI) | payer MEDICARE, SELFPAY ==
--- OUTSIDE RECORDS SUMMARY | 2022-07-31 00:21 | XMS_ITS | Encounter Summary ---
:1950 Author Organization [facility] Address [address] [place] [address] Care Team Providers Name Role Phone Monroe Gómez MD Primary Care Provider Reason for Referral Radiology Services (Routine/Next Available) - New Request Specialty Diagnoses / Procedures Referred By Contact Refer red To Contact Diagnoses Left hip pain Mónica Angela NP Procedures XR HIP LEFT 2-3 VIEWS, OPTIONAL PELVIS [address] [facility] [address] [place] [address] Referral ID Status Reason Start Date Expiration Date Visits V isits Requested Authorized [id number] New Request 04/10/2022 1 1 Reason for Visit Reason Comments New Patient Visit the Pt. states that had infe ction in his abdomen ,got rid of arlette with antibiotic. has wrist p ain, feet pain. arms muscles and feets are getiing weak and stiff. having problams standing. ankles are swollen. Referral (Routine) - Authorization Not Required Specialty Diagnoses / Procedures Referred By Contact Refer red To Contact Rheumatology Diagnoses Other specified abnormal immunological findings in serum Kassy Urbina NP [facility] [address] [facility] [address] [place] [address] [place], [place] Phone: [phone] Referral ID Status Reason Start Expiration Visits Visits Date Date Requested Authorized [id number] Authorization Not 1 1 Required Encounter Details Date Type Department Care Team Description 04/10/2022 Office Visit [facility] [place], Left hi p pain (Primary Dx); [facility] [employer] Swelling of both hands; [address] [place] [address] [address] [place] [id number] Social History Tobacco Use Types Packs/Day Years Used Date Current Every Day Smoker Cigarettes 30 Comments: Has quit before Alcohol Habits Answer Date Recorded How often do you have a drink containing Not asked alcohol? How many drinks containing alcohol do you Not asked have on a typical day when you are drinking? How often do you have six or more drinks Not asked on one occasion? Comment: Holidays/Special events- beer 04/09/2022 Sex Assigned at Date Recorded Not on file documented as of this encounter Last Filed Vital Signs Vital Sign Reading Time Taken Comments Blood Pressure 122/60 04/10/2022 1353 EDT Pulse 80 04/10/2022 1353 EDT Temperature 36 ??C (96.8 ??F) 04/10/2022 1353 EDT Respiratory Rate - - Oxygen Saturation - - Inhaled Oxygen Concentration - - Weight 96.6 kg (213 lb) 04/10/2022 1353 EDT Height 181.5 cm (5' 11.46) 04/10/2022 1353 EDT Body Mass Index 29.33 04/10/2022 1353 EDT documented in this encounter Functional Status Functional Status Response Date of Assessment Because of a physical, mental, or emotional condition, No 04/10/2022 does this person have difficulty doing errands alone such as visiting a doctor's office or shopping? Cognitive Status Response Date of Assessment Because of a physical, mental, or emotional condition, Yes 04/10/2022 does this person have serious difficulty concentrating, remembering, or making decisions? documented as of this encounter Patient Instructions Patient InstructionsMónica Angela APRN - 04/10/2022 14:00 EDT Get labs done today Schedule x-rays of hands and left hip at [facility] Instead of ibuprofen, trial of naproxen 2 times a day with food OK to take Tylenol as needed as well documented in this encounter Ordered Prescriptions Prescription Sig Dispensed Refills Start Date End Date naproxen (NAPROSYN) 500 Take 1 Tablet by 60 Tablet 2 202105/15/2022 mg tabletIndications: mouth 2 times daily Swelling of both hands with breakfast and dinner. documented in this encounter Progress Notes Mónica Angela APRN - 04/10/2022 1400 EDT [facility] Chief Complaint Patient presents with ??? New Patient Visit the Pt. states that had infection in his abdomen ,got rid of arlette with antibiotic. has wrist pain, feet pain. arms muscles and feets are getiing weak and stiff. having problams standing. ankles are swollen. HPI: 71-year-old man here today in the company of his , Diana at the request of Yanet Santos MD forevaluation of multijoint pain. States that he had rather insidious onset of joint pain and stiffness as well as decreased energy. Has been retired for about 4 months from driving truck. Medical history includes diverticulitis as well as bladder cancer. Has stiffness in the morning that lasts about 20 minutes. Sitting for periods of time increases in symptoms as well. He does endorse some hand swelling right side worse than left. Also has reported right foot with some swelling. Upon questioning, he states he has had a right foot dysfunction since . Wore braces as a young child. Surgical history of irrigation and debridement of left foot. Previous labs dated 02/13/2022 with CBC within normal values, mildly elevated CRP = 0.35 (0-0.3), Lyme negative, TSH and CMP as well as ESR within normal values. Pertinent positives of mildly elevated RF = 16 (<12) Feels as though the muscles in his arms and legs are feeling weak. Also endorses twitchiness of his legs at night. States his left hip is chronically sore. No recent x-rays. History of diverticulitis in November 2021. Significant increase in joint pain thereafter. Was treated with antibiotics for about 3 months. Attends yearly follow-ups with his urologist Dr. Hannon. Upcoming 04/23/22. Has been clear for the last 2 years. Current Outpatient Medications Medication ??? acetaminophen (TYLENOL) 500 mg tablet ??? Sigurd 500 mg capsule ??? multivit-min/ferrous fumarate (MULTI VITAMIN ORAL) ??? guzgpoo-jmpj-skrdn-oreg-capryl 100 mg-150 mg- 50 mg-150 mg capsule ??? UNABLE TO FIND No current facility-administered medications for this visit. Allergies include: Patient has no known allergies. Past Medical History: Diagnosis Date ??? Bladder tumor 12/17/2016 ??? Diverticulitis ??? Malignant neoplasm of overlapping sites of bladder (HCC-CMS) (HCC) 07/15/2016 ??? Parapelvic renal cyst 04/2021 ??? Renal mass 03/2021 No family history on file. Social History: Social History Tobacco Use ??? Smoking status: Current Every Day Smoker Years: 30.00 Types: Cigarettes ??? Tobacco comment: Has quit before Substance Use Topics ??? Alcohol use: Not on file Comment: Holidays/Special events- beer ??? Drug use: Never Review of Systems: 13 point ROS was done with the patient. See scanned document for details. Pertinent positives and negatives are noted in the HPI. Physical Examination: BP 122/60 (BP Cuff Location: Right arm, BP Cuff Sizes: Adult, regular) Pulse 80 Temp 36 ??C (96.8 ??F) Ht 181.5 cm (71.46) Wt 96.6 kg (213 lb) BMI 29.33 kg/m?? EYES: Conjunctivae not injected ENT: Oral and nasal mucosa not examined. Protective mask in place secondary to COVID-19 precautions. NECK: Supple. Normal extension, flexion and rotation. NO lymphadenopathy. CHEST: Clear to auscultation bilaterally. CARDIOVASCULAR: Regular rate and rhythm. No murmur. No peripheral edema. ABDOMEN: Soft, non tender. No hepatosplenomegaly. MUSCULOSKELETAL EXAM: Antalgic gait on the right. Normal resting posture. Bilateral shoulder, elbow motion well-preserved. Unable to dorsiflex his right foot. Appearance with adduction of forefoot. Atrophy of lower leg musculature of right leg. Calf circumference difference right 14 1/4 on the right and 15 1/2 on the left. Decreased IR of right hip with log roll in supine position and decreased IR while seated. Right shoulder with capsular tightness in ER at 90 abduction. SKIN: No rash on arms, legs, trunk. No nail pitting. No dilated capillary loops in the nail beds. NEURO: Strength 5/5. Sensation intact to light touch. Occasional numbness left small and ring finger Labs: Lab Requisition on 02/13/2022 Component Date Value ??? Rheumatoid Factor 02/13/2022 16.0 (A) ??? Lyme Ab 02/13/2022 Negative Diagnosis / Assessment: Problem List Items Addressed This Visit Immune/Inflammatory Elevated rheumatoid factor Other Visit Diagnoses Left hip pain - Primary Relevant Orders XR HIP LEFT 2-3 VIEWS, OPTIONAL PELVIS Swelling of both hands Relevant Medications naproxen (NAPROSYN) 500 mg tablet Other Relevant Orders C REACTIVE PROTEIN (Completed) CCP ANTIBODIES (Completed) URIC ACID (Completed) XR RHEUMATOID HANDS Possible reactive arthritis following diverticulitis and infection Recommendations/Evaluation: Recommend additional labs to evaluate further if suspicion of inflammatory arthritis versus osteoarthritis. Suspect defect involving both right upper and lower extremity with atrophy and foot deformity and loss of joint motion. Despite history of diverticulitis, trial of short course of schedule NSAID for symptom management for symptoms X-rays to further evaluate patterns of arthritis as well as suspected underlying hip arthritis. Follow up in 4 weeks for remote visit. CATHY Del Rosario 04/10/2022 14:10 documented in this encounter Plan of Treatment Scheduled Orders Name Type Priority Associated Diagnoses Order S chedule XR HIP LEFT 2-3 VIEWS, Imaging Routine Left hip pain Expe cted: 04/10/2022, OPTIONAL PELVIS Expires: documented as of this encounter Results URIC ACID (04/10/2022 15:20 EDT) Pathologist Sig nature Uric Acid 6.7 3.9 - 9.0 mg/dL [facility] Specimen Blood - Venous blood (substance) Performing Organization Address City/State/ZIP Code Phon e Number [facility] [address] [place] [address] CCP ANTIBODIES (04/10/2022 15:20 EDT) Pathologist Sig nature CCP Antibodies <2.5 <5.0 U/mL [facility] Specimen Blood - Venous blood (substance) Performing Organization Address City/State/ZIP Code Phon e Number [facility] [address] [place] [address] SERVICES C REACTIVE PROTEIN (04/10/2022 15:20 EDT) Pathologist Sig nature C-Reactive Protein <5.0 <10.0 mg/L [facility] Specimen Blood - Venous blood (substance) Performing Organization Address City/State/ZIP Code Phon e Number [facility] [address] [place] [address] documented in this encounter Visit Diagnoses Diagnosis Left hip pain - Primary Pain in joint, pelvic region and thigh Swelling of both hands Elevated rheumatoid factor Other and unspecified nonspecific immuno logical findings documented in this encounter Historical Medications This list may reflect changes made after this encounter. Medication Sig Dispensed Refills Start Date End Date UNABLE TO FIND daily. tumeric 0 [id number]-evfep-oreg-ca Take by mouth daily. 0 pryl 100 mg-150 mg- 50 mg-150 mg capsule added in this encounter Care Teams Meal Room Hand Relationship Specialty Start Date End Date Monroe Gómez MD PCP - General 06/16/[address] [place] [address] [place] [address] [phone] documented as of this encounter
--- OUTSIDE RECORDS SUMMARY | 2022-07-31 00:21 | XMS_ITS | Encounter Summary ---
:1950 Author Organization [facility] Address [address] [place] [address] Care Team Providers Name Role Phone Monroe Gómez MD Primary Care Provider Encounter Details Date Type Department Care Team Description 04/10/2022 Phlebotomy Only [facility], [facility] Op Antione [facility]on of [facility] Phlebotomy [facility] - Outpatient Phlebotomy [address] [place] [address] Social History Tobacco Use Types Packs/Day Years [...] on file documented as of this encounter Functional Status Functional Status Response [...] making decisions? documented as of this encounter Plan of Treatment Not on filedocumented as of this encounter Procedures Procedure Name Priority Date/Time Associated Diagnosis Comme nts CCP ANTIBODIES Routine 04/10/2022 15:20 Swelling of both Resul ts for this EDT hands procedure are i n the results section. C REACTIVE PROTEIN Routine 04/10/2022 15:20 Swelling of both R esults for this EDT hands procedure are i n the results section. URIC ACID Routine 04/10/2022 15:20 Swelling of both Results for this EDT hands procedure are i n the results section. documented in this encounter Results URIC ACID (04/10/2022 15:20 EDT) Pathologist Sig nature Uric Acid 6.7 3.9 - 9.0 mg/dL [facility] Specimen Blood - Venous blood (substance) Performing Organization Address City/[facility]/ZIP Code Phon e Number [facility] [address] [place] [address] CCP ANTIBODIES (04/10/2022 15:20 EDT) Pathologist Sig nature CCP Antibodies <2.5 <5.0 U/mL [facility] Specimen Blood - Venous blood (substance) Performing Organization Address City/[facility]/ZIP Code Phon e Number [facility] [address] [place] [address] SERVICES C REACTIVE PROTEIN (04/10/2022 15:20 EDT) Pathologist Sig nature C-Reactive Protein <5.0 <10.0 mg/L [facility] Specimen Blood - Venous blood (substance) Performing Organization Address City/[facility]/ZIP Code Phon e Number [facility] [address] [place] [address] documented in this encounter Visit Diagnoses Diagnosis Swelling of both hands documented in this encounter Care Teams Materials Management Supervisor Relationship Specialty Start Date End Date Monroe Gómez MD PCP - General 06/16/[address] [place] [address] [phone] documented as of this encounter
--- OUTSIDE RECORDS SUMMARY | 2022-07-31 00:21 | XMS_ITS | Encounter Summary ---
:1950 [place] [address] Care Team Providers Name Role Phone None Primary Care Provider Unavailable Reason for Visit Reason Comments Altered Mental Status LKW Wednesday Encounter Details Date Type Department Care Team Description 07/03/2022 - Emergency Emergency Department Darrel Blount Ce rebrovascular accident 07/04/2022 Critical access hospital ([facility]), unspecified [facility] EMERGENCY [place], [place] MEDICINE [id number] [place] [address] [phone] Social History Tobacco Use Types Packs/Day Years Used Date Never Assessed Sex Assigned at Date Recorded Not on file documented as of this encounter Last Filed Vital Signs Vital Sign Reading Time Taken Comments Blood Pressure 143/71 07/03/2022 9:00 PM EDT Pulse 67 07/03/2022 11:15 PM EDT Temperature 36.6 ??C (97.9 ??F) 07/03/2022 7:07 PM EDT Respiratory Rate 23 07/03/2022 11:15 PM EDT Oxygen Saturation 97% 07/03/2022 11:15 PM EDT Inhaled Oxygen Concentration - - Weight 93.9 kg (207 lb) 07/03/2022 7:07 PM EDT Height - - Body Mass Index - - documented in this encounter ED Notes Fili Scott, RN - 07/03/2022 11:56 PM EDT 2335H [place]/drink offered to patient's . 2345H Patient and not found in the room, Dr. Maddox aware, charge nurse on duty informed. 6229H Dr. Casiano updated that patient still not in the room, apparently eloped, not in distress. Jose Maddox MD - 07/03/2022 9:11 PM EDT ED Resident Note HPI: Yonatan Cabrera is a 71 y.o. male who presents to the Emergency Department with difficulties with hearing and understanding commands for the last four days. The patient's said that on Wednesday he was out in the heat all day and she noticed a personality change towards the end of the day. She was described as difficulty with understanding words and performing commands and expressing words. Symptoms have continued since that time. His was concerned secondary to these persistent mental status changes and brought the patient to the emergency department tonight. He is otherwise healthy except for one medication that he takes for left hip pain. No fevers or chills. Pt was seen under the supervision of an attending physician. Review of Systems Pertinent positives and negatives are included in the HPI, otherwise at least ten systems were reviewed and negative. Past Medical and Surgical Histories, Social History, Medications, Allergies were reviewed in the chart. Vitals: ED Triage Vitals [07/03/22 1907] BP: 143/73 Heart Rate: 80 Resp: 16 Temp: 36.6 ??C (97.9 ??F) Temp src: Temporal SpO2: 98 % O2 Device: RA O2 Flow Rate (L/min): n/a Physical Exam General: Alert, mix of appropriate and inappropriate answers to questions, difficulty understanding and following commands but ambulatory with stable gait. HEENT: Normocephalic/atraumatic, EOMI, PERRL. Neck: Trachea midline Cardiovascular: RRR Pulmonary: No respiratory distress or accessory muscle use noted. Abdomen: Nondistended. Skin: Leonardo, warm, dry Extremities: No deformities. Neuro: CN II-XII grossly intact bilaterally. Strength: 5/5 upper and lower extremities bilaterally. Psych: Normal mood and thought pattern. 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 Mass effect is local. No acute hemorrhages. 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 Thank you for letting us participate in the care of this patient. If you are a health care provider and have any questions regarding this report, please contact the number below. For patients who have questions please contact the health director of home care hospice that requested your imaging first. Electronically signed by: Broderick Garcia [facility] ([phone]), at 07/03/2022 8:54 PM ED Course as of 07/03/222332Jul 03, [id number] Neurology paged [phone] Was just messaged re patient requesting to leave 2/2 wait time. Went to discuss with patient and and no one in room Assessment and Plan: 71 y.o. male's to the emergency department with difficulties with hearing and understanding for the last 3 to 4 days. My initial assessment is notable for a generally well-appearing male patient in no acute distress with normal vital signs. Physical exam is pertinent for appears to be expressive and receptive aphasia as the patient intermittently understands questions and does not seem to understand questions and provides a mixed of appropriate answers to questions as well as answers where he has difficulty performing a comprehensive sentence. No other obvious neurologic deficits detected on neurologic exam. Blood work obtained was largely unremarkable. No clear infectious signs or symptoms to sugg est an infectious or other cause. CT scan of the head that was ordered from triage showed a subacuteright sided MCA infarct. Neurology was consulted as I believe the patient may have had a stroke 4 days ago leading to his symptoms of this time duration. He would not be a candidate for tPA or thrombectomy based on the duration of symptoms. I was messaged by the patient's nurse that patient and are requesting to leave secondary to wait time. I went to reevaluate the patient and discussed with him the importance of neurologic intervention within 5 minutes of receiving this message from the patient's nurse. The patient and his were not in the room and all of the leads and monitoring equipment had been disconnected and placed on the bed. We looked around the emergency department and could not find the patient. On repeat evaluation 10 minutes later, patient and were again not in the room. It is assumed that the patient and eloped from the emergency department prior to neurological evaluation or further recommendations regarding evaluation and management. Jose Maddox MD Resident 08/13/22 0111 Associated attestation - Darrel Blount DO - 07/04/2022 3:49 PM EDT ED ATTENDING ATTESTATION The patient was seen in conjunction with the resident physician. I have personally reviewed nursing notes, vital signs, and diagnostic studies including labs, imaging studies and EKGs. I have discussedthe details of the case with the resident and agree with the assessment and plan as described in theresident's note, unless stated otherwise in my separate note. Pt eloped from the ED before I could examine him Did this case involve critical care? No Pernell Oseguera APRN - 07/03/2022 7:04 PM EDT Patient Name: Yonatan Cabrera Patient : 1950 Encounter Date: 07/03/2022 Brief Provider Triage Note 71 y.o. male presents to the emergency department with difficulty speaking and understanding that started Wednesday after being out in heat. Symptoms continued since that, really describing receptive issues, having difficulty following commands per and understanding. General weakness as well. reports he looks off. Brief focused physical exam notable for alert male, NAD, speech seems clear, FC for us here with extra prompts. BP 143/73 (BP Location (NBP): Left arm, Patient Position: Sitting) Pulse 80 Temp 36.6 ??C (97.9 ??F) (Temporal) Resp 16 Wt 93.9 kg (207 lb) SpO2 98% Plan: labs, U/A with reflex culture, EKG, CTH Patient requires further evaluation, diagnosis and management in the emergency department. PPE worn during this encounter: Level 2 mask and Eyeglasses Pernell Oseguera APRN 07/03/221913 documented in this encounter Plan of Treatment Upcoming Encounters Date Type Specialty Care Team Description 09/29/2022 Office Visit Neurology Sherrell Acuña MD [facility] NEUROLOGY DEPT [place], [place] [address] (Wo rk) documented as of this encounter Procedures Procedure Name Priority Date/Time Associated Comments Diagnosis RAPID DRUG SCREEN, STAT 07/03/2022 11:40 Resul ts for this URINE (RAMA REQUEST) PM EDT procedur e are in the results section. RAPID DRUG SCREEN W/O STAT 07/03/2022 11:40 Re sults for this CONFIRMATION, URINE PM EDT procedur e are in the results section. URINALYSIS WITH STAT 07/03/2022 11:40 Results for this REFLEX CULTURE PM EDT procedure are in the results section. EKG 12-LEAD STAT 07/03/2022 10:25 Results for this PM EDT procedure are i n the results section. CT HEAD WO CONTRAST STAT 07/03/2022 8:41 PM Re sults for this (GENERIC) EDT procedure are i n the results section. HC THYROID STAT 07/03/2022 8:10 PM Results f or this STIMULATING HORMONE, EDT procedu re are in SERUM the results section. KUMAR TUBE HOLD STAT 07/03/2022 8:10 PM Results for this EDT procedure are i n the results section. HEMOGRAM STAT 07/03/2022 8:10 PM Results f or this EDT procedure are i n the results section. DIFFERENTIAL, STAT 07/03/2022 8:10 PM Results for this AUTOMATED EDT procedure are i n the results section. BLUE TUBE HOLD STAT 07/03/2022 8:10 PM Results for this EDT procedure are i n the results section. HC CBC,PLT & AUTO STAT 07/03/2022 8:10 PM DIFF EDT HC MAGNESIUM, SERUM STAT 07/03/2022 8:10 PM Re sults for this EDT procedure are i n the results section. BASIC METABOLIC PANEL STAT 07/03/2022 8:10 PM Results for this (NON-FASTING) EDT procedure are in the results section. documented in this encounter Results Rapid Drug Screen w/o Confirmation, Urine (07/03/2022 11:40 PM EDT) [facility] Method Time Signature U Barbiturates None None FILIPPO Screen Detected Detected [facility] Comment: The barbiturate screen detects barbitura gudelia at concentrations >200 ng/mL. Note: Not all barbiturates cross-react equally with antibody used in this screen. A ? Presumptive Positive? result indicates that the screening result was positive but has not yet been confirmed by a highly-specific method. As with any screen, occasional false positive re sults from cross-reacting substances may occur. Not for Medico-Legal Purposes. U Benzodiazepines Screen None Detected None Detected [facility] Comment: The benzodiazepines screen detects benzo diazepines at concentrations >100 ng/mL. Not all benzodiazepines cross-rita ct equally with antibody used in this screen. Due to the low dosage of clonaze connie, false negatives may be obtained due to low concentration of clonazepam m etabolites. A ? Presumptive Positive? result indicates that the screening result was positive but has not yet been confirmed by a highly-specific method. As with any screen, occasional false positive re sults from cross-reacting substances may occur. Not for Medico-Legal Purposes. U Cocaine Screen None Detected None Detected [facility] Comment: The cocaine metabolites screen detects b enzoylecgonine (Cocaine Metabolite) at concentrations >150 ng/mL. A ? Presumptive Positive? result indicates that the screening result was positive but has not yet been confirmed by a highly-specific method. As with any screen, occasional false positive re sults from cross-reacting substances may occur. Not for Medico-Legal Purposes. U Methadone Metabolites None Detected None Detected [facility] Comment: The methadone metabolite screen detects EDDP (major methadone metabolite) at concentrations >100 ng/mL. A ? Presumptive Positive? result indicates that the screening result was positive but has not yet been confirmed by a highly-specific method. As with any screen, occasional false positive re sults from cross-reacting substances may occur. Not for Medico-Legal Purposes. U Opiate Screen None Detected None Detected [facility] Comment: The opiates screen detects opiates at co ncentrations >300 ng/mL. Please note that oxycodone, oxymorphone, fentanyl, tramadol, and other synthetic opioids are not detected by e opiate screen. A ? Presumptive Positive? result indicates that the screening result was positive but has not yet been confirmed by a highly-specific method. As with any screen, occasional false positive re sults from cross-reacting substances may occur. Not for Medico-Legal Purposes. U Cannabinoid Screen None Detected None Detected [facility] Comment: The marijuana metabolites screen detects the THC metabolite (10-twc-7-carboxy-delta 9-THC) at concen trations >20 ng/mL. A ? Presumptive Positive? result indicates that the screening result was positive but has not yet been confirmed by a highly-specific method. As with any screen, occasional false positive re sults from cross-reacting substances may occur. Not for Medico-Legal Purposes. U Oxycodone Screen None Detected None Detected [facility] Comment: The oxycodone screen detects oxycodone a nd oxymorphone at concentrations >100 ng/mL. A ? Presumptive Positive? result indicates that the screening result was positive but has not yet been confirmed by a highly-specific method. As with any screen, occasional false positive re sults from cross-reacting substances may occur. Not for Medico-Legal Purposes. U Buprenorphine Screen None Detected None Detected [facility] Comment: The buprenorphine screen detects bupreno rphine at concentrations >5 ng/mL. A ? Presumptive Positive? result indicates that the screening result was positive but has not yet been confirmed by a highly-specific method. As with any screen, occasional false positive re sults from cross-reacting substances may occur. Not for Medico-Legal Purposes. U Fentanyl Screen None Detected None Detected [facility] Comment: The fentanyl screen detects fentanyl at concentrations >2 ng/mL. A ? Presumptive Positive? result indicates that the screening result was positive but has not yet been confirmed by a highly-specific method. As with any screen, occasional false positive re sults from cross-reacting substances may occur. Not for Medico-Legal Purposes. U Tricyclics Screen None Detected None Detected [facility] Comment: The tricyclics screen detects tricyclic antidepressants at concentrations >150 ng/mL. Not all tricyclics cross-react eq ually with the antibody used in this screen. A ? Presumptive Positive? result indicates that the screening result was positive but has not yet been confirmed by a highly-specific method. As with any screen, occasional false positive re sults from cross-reacting substances may occur. Not for Medico-Legal Purposes. U Ethanol Screen None Detected None Detected [facility] Comment: This urine ethanol assay detect s ethanol at concentrations >/= 100 mg/L. U Amphetamines Screen None Detected None Detected [facility] Comment: The amphetamine screen detects d-ampheta mine and d-methamphetamine at concentrations >300 ng/mL. A ? Presumptive Positive? result indicates that the screening result was positive but has not yet been confirmed by a highly-specific method. As with any screen, occasional false positive re sults from cross-reacting substances may occur. Not for Medico-Legal Purposes. U Adulterants Screen None Detected None Detected Jose FOSS [facility] Comment: No adulteration or dilution of this urin e sample was detected. All urine samples submitted for urine drugs of abu se analysis are tested for creatinine concentration, pH, and for the presence of oxidants, nitrites, and chromate. Specimen Anatomical Collection Method Collection Time Receive d Time (Source) Location / / Volume Laterality Urine 07/03/2022 11:40 07/04/2022 PM EDT 12:46 AM EDT Resulting Agency Comment Spec In Lab Jose Maddox MD CHEMISTRY ORDERABLES Performing Organization Address City/[facility]/ZIP Code Phon e Number [address] Rapid Drug Screen, Urine (RAMA Request) (07/03/2022 11:40 PM EDT) [facility] Method Time Signature RAMA Conf No [facility] RAMA Requested See Comment [facility] Comment: Refer to Rapid Drug Screen w/o Confirmation, Urine for results. Specimen Anatomical Collection Method Collection Time Receive d Time (Source) Location / / Volume Laterality Urine 07/03/2022 11:40 07/04/2022 PM EDT 12:46 AM EDT Resulting Agency Comment Spec In Lab Darrel Blount DO URINE ORDERABLES Performing Organization Address City/[facility]/[place] [address] Urinalysis with reflex Culture (07/03/2022 11:40 PM EDT) Patholo gist Method Time Signature Glucose UA Negative Negative [facility] mg/dL [facility] Protein UA Negative Negative [facility] mg/dL [facility] Bilirubin UA Negative Negative [facility] mg/dL [facility] Comment: Clinical correlation required for positi ve Urine Bilirubin results as false positive may occur with some drugs and d rug related products. If a false positive is suspected a serum total bili whyte should be considered if clinically indicated. Urobilinogen UA Normal Normal mg/dL [facility] pH UA 5.5 5.0 - 8.0 [facility] Blood UA Negative Negative mg/dL [facility] Ketones UA Negative Negative mg/dL [facility] Nitrite UA Negative Negative [facility] Leukocytes UA Negative Negative [facility] Appearance UA Clear Clear [facility] Spec Sod UA 1.022 1.005 - 1.030 [facility] Color UA Yellow Yellow [facility] Culture Reflexed No [facility] Specimen Anatomical Collection Method Collection Time Receive d Time (Source) Location / / Volume Laterality Clean Catch 07/03/2022 11:40 07/04/2022 Urine PM EDT 12:46 AM EDT Resulting Agency Comment Spec In Lab Pernell Bacaicoa BREAKER TABLE WORKER URINE ORDERABLES Performing Organization Address City/State/[place] [address] EKG 12 Lead (07/03/2022 10:25 PM EDT) Component Value Ref Range Test Analysis Performed Pathologis t Method Time At Signature Ventricular rate 57 BPM MUSE SYSTEM Atrial Rate 57 BPM MUSE SYSTEM P-R Interval 140 ms MUSE SYSTEM QRS Duration 118 ms MUSE SYSTEM Q-T Interval 412 ms MUSE SYSTEM QTC Calculated 401 ms MUSE SYSTEM (Bezet) Calculated P [place] 54 degrees MUSE SYSTEM Calculated R [place] 71 degrees MUSE SYSTEM Calculated T [place] 33 degrees MUSE SYSTEM INTERPRETATION Sinus bradycardia MUSE SY STEM Incomplete right bundle branch block Borderline ECG No previous ECGs available Confirmed by MD SUN, WINSOME ([id number]) on 07/04/2022 5:34:47 PM Specimen Anatomical Collection Method Collection Time Receive d Time (Source) Location / / Volume Laterality 07/03/2022 10:25 07/04/2022 5:34 PM EDT PM EDT Pernell Oseguera APRN ECG ORDERABLES Performing Organization Address City/State/ZIP Code Phon e Number MUSE SYSTEM CT Head wo Contrast (Generic) (07/03/2022 8:41 PM EDT) Anatomical Region Laterality Modality Head Computed Tomography Specimen (Source) Anatomical Collection Method Collection Time Re ceived Time Location / / Volume Laterality 07/03/2022 9:00 PM EDT Impressions 07/03/2022 8:54 PM EDT Subacute infarct within the posterior right MCA territory. Mass effect is local. No acute hemorrhages. Chronic insult within the left basal rosi glia. Thank you for letting us participate in the care of this patient. ??If you are a health care provider and have any questi ons regarding this report, please contact the number below. ??For patients who have questions please contact the health director of home care hospice that requested your imaging first. ? Electronically signed by: Broderick Garcia [facility] ([phone]), at 07/03/2022 8:54 PM Narrative 07/03/2022 8:54 PM EDT EXAMINATION: CT HEAD WO CONTRAST (GENERIC) CLINICAL HISTORY: Mental status change, unknown cause; Neuro deficit, acute, stroke suspected; Wednesday speech changes and concern for receptive aspasia, eval stroke, ICH TECHNIQUE: CT Head was performed without contrast COMPARISON: None FINDINGS: Well-defined cortically based hypoattenuation within the posterior right superior temporal gyrus extends in to the adjacent parietal lobe. Mass effect results in sulcal effacement and very mild compression upon the atria of the right lateral ventricle. No hemorrha ges. No other sites of cortically based hypoattenuation. Chronic insult within t he left lentiform nucleus with volume loss resulting in ex vacuo dilatation of the left ventricular horn. Patchy areas of deep white matter hypoattenuation ref lects chronic small vessel ischemic disease. Chronic opacification of the right sphen oid sinus and mucoperiosteal thickening. Mild mucosal thickening within the left maxillary sinus. Mastoid air cells are clear. No aggressive osseous lesions. Procedure Note Broderick Garcia MD - 07/03/2022Formatti ng of this note might be different from the original. EXAMINATION: CT HEAD WO CONTRAST (GENERI C) CLINICAL HISTORY: Mental status change, unknown cause; Neuro deficit, acute, stroke suspected; Wednesday speech changes and concern for receptive aspasia, eval stroke, ICH TECHNIQUE: CT Head was performed without contrast COMPARISON: None FINDINGS: Well-defined cortically based hypoattenuation within the posterior right superior temporal gyrus extends in to the adjacent parietal lobe. Mass effect results in sulcal effacement and very mild compression upon the atria of the right lateral ventricle. No hemorrha ges. No other sites of cortically based hypoattenuation. Chronic insult within t he left lentiform nucleus with volume loss resulting in ex vacuo dilatation of the left ventricular horn. Patchy areas of deep white matter hypoattenuation ref lects chronic small vessel ischemic disease. Chronic opacification of the right sphen oid sinus and mucoperiosteal thickening. Mild mucosal thickening within the left maxillary sinus. Mastoid air cells are clear. No aggressive osseous lesions. IMPRESSION Subacute infarct within the posterior ri ght MCA territory. Mass effect is local. No acute hemorrhages. Chronic insult within the left basal rosi glia. Thank you for letting us participate in the care of this patient. If you are a health care provider and have any questi ons regarding this report, please contact the number below. For patients w ho have questions please contact the health director of home care hospice that requested your imaging first. Electronically signed by: FRANCIA Rubin [facility] ([phone]), at 07/03/2022 8:54 PM Pernell Oseguera APRN IMG CT ORDERABLES Kumar Tube Hold (07/03/2022 8:10 PM EDT) athologist Signature Kumar Hold Sample in FILIPPO [facility]ATORY Specimen Anatomical Collection Method Collection Time Receive d Time (Source) Location / / Volume Laterality Blood Venous Draw / 07/03/2022 8:10 PM 07/03/20 22 8:17 Unknown EDT PM EDT Pernell Bacaicoa BREAKER TABLE WORKER CHEMISTRY ORDERABLES Performing Organization Address City/[facility]/ZIP Code Phon e Number [address] Blue Tube HOLD (07/03/2022 8:10 PM EDT) athologist Signature Blue Hold Sample in [facility] LABORATORY Specimen Anatomical Collection Method Collection Time Receive d Time (Source) Location / / Volume Laterality Blood Venous Draw / 07/03/2022 8:10 PM 07/03/20 22 8:17 Unknown EDT PM EDT Pernell Bacaicoa BREAKER TABLE WORKER HEMATOLOGY ORDERABLES Performing Organization Address City/[facility]/ZIP [facility] Phon e Number [address] Differential, Automated (07/03/2022 8:10 PM EDT) athologist Signature Neutrophils % 60.5 % [facility] Neutr Abs (ANC) 4.72 1.70 - [facility] [facility] 6.10 [facility] x10(3)/[facility] LABORATORY Lymphocytes % 27.7 % [facility] LABORATORY Lymphocytes Abs 2.2 0.9 - 3.2 [facility] x10(3)/[facility] LABORATORY Monocytes % 7.4 % [facility] LABORATORY Monocyte Abs 0.6 0.3 - 0.9 [facility] x10(3)/[facility] LABORATORY Eosinophils % 3.3 % [facility] LABORATORY Eosinophils Abs 0.3 0.0 - 0.4 [facility] x10(3)/[facility] LABORATORY Basophils % 0.8 % [facility] LABORATORY Basophils Abs 0.1 0.0 - 0.1 [facility] x10(3)/[facility] LABORATORY Immature Gran % 0.30 % [facility] LABORATORY Comment: Immature granulocytes(IG's)percentage an d absolute count will include metamyelocytes, myelocytes, and promyelo cytes. Blood smears from CBCs yielding IG's will be scanned manually for conccassidy danstella. If this scan disagrees with the automated IG or if promyelocytes are not ed, a manual differential will be performed. Precious Gran Abs 0.02 0.00 - 0.04 x10(3)/[facility] LABORATORY Specimen Anatomical Collection Method Collection Time Receive d Time (Source) Location / / Volume Laterality Blood 07/03/2022 8:10 PM 8:17 EDT PM EDT Resulting Agency Comment Spec In Lab Pernell Oseguera APRN HEMATOLOGY ORDERABLES Performing Organization Address City/State/[place] [address] (ABNORMAL) Hemogram (07/03/2022 8:10 PM EDT) Analysis Performed At Patho logist Time Signature WBC 7.8 4.0 - 9.5 [facility] x10(3)/[facility] LABORATORY RBC 4.31 (L) 4.58 - [facility] 5.54 [facility] x10(6)/[facility] LABORATORY Hemoglobin 14.2 13.7 - [facility] 16.5 g/dL [facility] LABORATORY Hematocrit 40.5 40.5 - [facility] 48.5 % [facility] LABORATORY MCV 94.0 (H) 82.9 - [facility] 93.1 [facility] LABORATORY MCH 32.9 (H) 27.5 - [facility] 32.1 pg [facility] LABORATORY MCHC 35.1 32.0 - [facility] 35.7 g/dL [facility] LABORATORY Platelets 224 145 - 357 [facility] x10(3)/[facility] LABORATORY RDWSD 43.8 36.0 - [facility] 45.0 [facility] LABORATORY RDWCV 12.7 11.4 - [facility] 13.8 % [facility] LABORATORY MPV 8.8 7.6 - 12.9 [facility] LABORATORY nRBC % Auto 0.0 % [facility] LABORATORY nRBC Abs Auto 0.000 0.000 - [facility] 0.000 [facility] x10(3)/[facility] LABORATORY Specimen Anatomical Collection Method Collection Time Receive d Time (Source) Location / / Volume Laterality Blood 07/03/2022 8:10 PM 2 8:17 EDT PM EDT Resulting Agency Comment Spec In Lab Pernell Bacaicoa BREAKER TABLE WORKER HEMATOLOGY ORDERABLES Performing Organization Address City/[facility]/ZIP Code Phon e Number [address] TSH [place] (07/03/2022 8:10 PM EDT) P athologist Signature TSH 2.59 0.27 - 4.20 FILIPPO HERNANDEZ mcIU/mL [facility] LABORATORY Comment: Reference Interval (mcIU/mL): Females: ??First Trimester: 0.23-3.88 ??Second Trimester: 0.22-3.90 ??Third Trimester: 0.44-4.66 Specimen Anatomical Collection Method Collection Time Receive d Time (Source) Location / / Volume Laterality Blood 07/03/2022 8:10 PM 2 8:17 EDT PM EDT Resulting Agency Comment Spec In Lab Pernell Bacaicoa BREAKER TABLE WORKER CHEMISTRY ORDERABLES Performing Organization Address City/[facility]/ZIP Code Phon e Number [address] Magnesium (07/03/2022 8:10 PM EDT) P athologist Signature Magnesium 0.95 0.69 - 1.07 FILIPPO HERNANDEZ mmol/L [facility] LABORATORY Specimen Anatomical Collection Method Collection Time Receive d Time (Source) Location / / Volume Laterality Blood 07/03/2022 8:10 PM 2 8:17 EDT PM EDT Resulting Agency Comment Spec In Lab Pernell Bacaicoa BREAKER TABLE WORKER CHEMISTRY ORDERABLES Performing Organization Address City/[facility]/ZIP Code Phon e Number [address] Basic Metabolic Panel (non-fasting) (07/03/2022 8:10 PM EDT) P athologist Signature Glucose Lvl 99 65 - 199 FILIPPO HERNANDEZ mg/dL [facility] LABORATORY Comment: Diabetes: >=200 mg/dL plus symp toms BUN 20 10 - 20 mg/dL [facility] LABORATORY Creatinine 0.93 0.80 - 1.50 mg/dL [facility] LABORATORY Sodium 140 135 - 145 mmol/L [facility] LABORATORY Potassium 4.3 3.5 - 5.0 mmol/L [facility] LABORATORY Comment: Please note: ??Patients with WBC >100,00 0 may have falsely elevated Potassium levels. ??For accurate Potassium quantif ication in these patients send serum separator tube (gold top) for subsequent determinations. ??Contact the Clinical Chemistry Laboratory if there are any qu estions. Chloride 103 98 - 107 mmol/L [facility] LABORATORY CO2 25 22 - 31 mmol/L [facility] LABORATORY Anion Gap 12 5 - 15 mmol/L [facility] LABORATORY Calcium 9.9 8.5 - 10.5 mg/dL [facility] LABORATORY Estimated GFR 89 >=60 mL/min/1.73 m?? [facility] LABORATORY Comment: This patient's estimated GFR was calcula salvatore using the 2020 CKD-EPI equation. The estimated GFR can vary from the sean ured GFR by up to 30% in the absence of rapidly changing kidney function. Assess ment of the estimated GFR is not appropriate when creatinine concentratio ns are rapidly changing. For clinical situations in which a more precise estim ate of GFR is necessary, consider alternative methods of GFR estimation ritter ch as a 24-hour urine creatinine clearance. Assignment of CKD stage 1-5 for patients with an eGFR near the transition point between stages may be based on clinical assessment of muscle mass and symptoms in addition to eGFR. Specimen Anatomical Collection Method Collection Time Receive d Time (Source) Location / / Volume Laterality Blood 07/03/2022 8:10 PM 8:17 EDT PM EDT Resulting Agency Comment Spec In Lab Pernell Oseguera APRN CHEMISTRY ORDERABLES Performing Organization Address City/State/[place] [address] documented in this encounter Visit Diagnoses Diagnosis Cerebrovascular accident (CVA), unspecif ied mechanism documented in this encounter Care Teams Chain Splitter Relationship Specialty Start Date End Date None PCP - General 07/03/22 07/08/22 None documented as of this encounter
--- OUTSIDE RECORDS SUMMARY | 2022-07-31 00:21 | XMS_ITS | Encounter Summary ---
:1950 Author Organization [facility] Address [address] [place] [address] Care Team Providers Name Role Phone Monroe Gómez MD Primary Care Provider Reason for Referral Consult (See Order Priority) - Authorization Not Required Specialty Diagnoses / Procedures Referred By Contact Refer red To Contact Diagnoses Left hip pain Chronic pain of left knee Mónica Angela NP [place], Matthew [address] [facility] MD BRIT Martinez Jr.-B [address] [place] [phone] [place] [phone] Phone: Fax: Referral ID Status Reason Start Expiration Visits Visits Date Date Requested Authorized [id number] Authorization Specialty 1 1 Not Required Services 2 Required Question Answer Reason for Request: left hip and left knee pain Practice Site (External Referral Only): [facility] Reason for Visit Reason Comments Follow-up left hip pain- it will twing a bit and his left knee is also better since he started the Naproxan. Swe lling in feet has also gone down. Encounter Details Date Type Department Care Team Description 05/15/2022 Office Visit [facility] - Julio César, Donna hi p pain (Primary Dx); [facility] Rheumatology [employer] Chronic pain of left knee; [address] [facility] [place] [address] [address] [place] [address] Social History Tobacco Use Types Packs/Day Years Used Date Current Every Day Smoker Cigarettes 30 Smokeless Tobacco: Never Used Comments: Has quit before Alcohol Habits Answer [...] Sign Reading Time Taken Comments Blood Pressure 116/61 05/15/2022 1310 EDT Pulse 73 05/15/2022 1310 EDT Temperature 36.4 ??C (97.6 ??F) 05/15/2022 1310 EDT Respiratory Rate - - Oxygen Saturation - - Inhaled Oxygen Concentration - - Weight 96.6 kg (213 lb) 05/15/2022 1310 EDT Height 181.5 cm (5' 11.46) 05/15/2022 1310 EDT Body Mass Index 29.33 05/15/2022 1310 EDT documented in this encounter Functional Status [...] Patient Instructions Patient InstructionsMónica Angela APRN - 05/15/2022 13:30 EDT Try taking naproxen once a day and see if it enough to manage pain It is ok to take Tylenol (acetaminophen) with the naproxen 3000mg or less daily Will need to repeat blood work at end of July Let me know if any joint swelling before next appointment documented in this encounter Ordered Prescriptions Prescription Sig Dispensed Refills Start Date End Date naproxen (NAPROSYN) 500 Take 1 Tablet by 180 Tablet 1 2021 mg tabletIndications: mouth 2 times daily Swelling of both hands with breakfast and dinner. documented in this encounter Progress Notes Mónica AngelaYANE - 05/15/2022 1330 EDT [facility] Rheumatology Chief Complaint Patient presents with ??? Follow-up left hip pain- it will twing a bit and his left knee is also better since he started the Naproxan. Swelling in feet has also gone down. HPI: New patient visit on 04/10/2022 for multijoint pain of insidious onset. Previous labs dated 02/13/2022 with CBC within normal values, Lyme negative, TSH and CMP as well as ESR within normal values. Pertinent positives of mildly elevated RF = 16 (<12); mildly elevated CRP = 0.35 (0-0.3) History of diverticulitis in November 2021. Significant increase in joint pain thereafter. Was treated with antibiotics for about 3 months. History of bladder cancer followed by Dr. Hannon INTERVAL HISTORY: After initial evaluation, initial labs drawn with normal CRP, negative CCP and normal serum uric acid He did initiate taking naproxen twice daily without adverse side effects. Feels it is helped significantly with his hand and wrist swelling Most life limiting symptom now is left lower extremity pain including groin, hip, knee Endorses childhood leg bracing on right for presumed dysfunction since Patient endorses that he was told no order at [facility] for x-rays of left hip/pelvis and hands so those were not done Recent visit with urologist with clean exam for history of bladder cancer Current Outpatient Medications Medication ??? acetaminophen (TYLENOL) 500 mg tablet ??? [place] 500 mg capsule ??? multivit-min/ferrous fumarate (MULTI VITAMIN ORAL) ??? naproxen (NAPROSYN) 500 mg tablet ??? omiflfp-jiti-btwhw-oreg-capryl 100 mg-150 mg- 50 mg-150 mg capsule [...] Day Smoker Years: 30.00 Types: Cigarettes ??? Smokeless tobacco: Never Used ??? Tobacco comment: Has quit before Substance Use Topics ??? Alcohol use: Not on file Comment: Holidays/Special events- beer ??? Drug use: Never Review of Systems: Review of Systems Constitutional: Negative for malaise/fatigue and weight loss. Eyes: Negative for pain and redness. Respiratory: Negative for cough. Cardiovascular: Negative for chest pain. Musculoskeletal: Positive for joint pain. Negative for falls. Skin: Negative for rash. Physical Examination: BP 116/61 (BP Cuff Location: Left arm, BP Cuff Sizes: Adult, long) Pulse 73 Temp 36.4 ??C (97.6 ??F) Ht 181.5 cm (71.46) Wt 96.6 kg (213 lb) BMI 29.33 kg/m?? EYES: Conjunctivae not injected ENT: Oral and nasal mucosa not examined. Protective mask in place secondary to COVID-19 precautions. NECK: Supple. Normal extension, flexion and rotation. NO lymphadenopathy. CHEST: Clear to auscultation bilaterally. CARDIOVASCULAR: Regular rate and rhythm. No murmur. No peripheral edema. MUSCULOSKELETAL EXAM: Antalgic gait on the right. Normal resting posture. Bilateral shoulder, elbow motion well-preserved. Unable to dorsiflex his right foot. Appearance with adduction of forefoot. Atrophy of lower leg musculature of right leg. Calf circumference difference right 14 1/4 on the right and 15 1/2 on the left. Decreased IR of left hip with log roll in supine position and decreased IR while seated. SKIN: No rash on arms, legs, trunk. No nail pitting. No dilated capillary loops in the nail beds. NEURO: Strength 5/5. Sensation intact to light touch. Occasional numbness left small and ring finger Labs: Phlebotomy Only on 04/10/2022 Component Date Value ? ? C-Reactive Protein 04/10/2022 <5.0 ? ? CCP Antibodies 04/10/2022 <2.5 ??? Uric Acid 04/10/2022 6.7 Lab Requisition on 02/13/2022 Component Date Value ??? Rheumatoid Factor 02/13/2022 16.0 (A) ??? Lyme Ab 02/13/2022 Negative Diagnosis / Assessment: Problem List Items Addressed This Visit None Visit Diagnoses Left hip pain - Primary Relevant Orders AMB CONS/FOLLOW UP ORTHOPEDICS - EXTERNAL Chronic pain of left knee Relevant Orders AMB CONS/FOLLOW UP ORTHOPEDICS - EXTERNAL Swelling of both hands Relevant Medications naproxen (NAPROSYN) 500 mg tablet Low CRP with repeat testing and negative CCP Persistent left lower extremity pain Recommendations/Evaluation: Recommend continuation of naproxen once daily if that covers the bulk of his symptoms. No clear-cut inflammatory/rheumatoid arthritis - minimally positive RF. Possible reactive arthritis with diverticulitis just prior to increase in multi-joint pain and hand swelling Recommend referral to Orthopedics near [facility] for focused assessment of his most bothersome symptoms of left hip and knee pain Follow up in 2 months for re-evaluation. Remote visit ok Mónica Angela APRN 05/15/2022 13:33 documented in this encounter Plan of Treatment Scheduled Referrals Name Type Priority Associated Order Schedule Diagnoses AMB CONS/FOLLOW UP Outpatient Routine/Next Left hip pain Expected: ORTHOPEDICS - Referral Available Chronic pain of 06/14/2022 EXTERNAL left knee (Approximate), Expires: 05/15/2023 documented as of this encounter Visit Diagnoses Diagnosis Left hip pain - Primary Pain in joint, pelvic region and thigh Chronic pain of left knee Pain in joint, lower leg Swelling of both hands documented in this encounter Discontinued Medications Medication Sig Discontinue Reason Start Date End Date naproxen (NAPROSYN) 500 Take 1 Tablet by 04/10/2022 05/15/2022 mg tabletIndications: mouth 2 times daily Swelling of both hands with breakfast and dinner. documented as of this encounter Care Teams Grounds Foreman Relationship Specialty Start Date End Date Monroe Gómez MD PCP - General 06/16/[address] [place] [address] documented as of this encounter
--- OUTSIDE RECORDS SUMMARY | 2022-07-31 00:21 | XMS_ITS | Encounter Summary ---
:1950 Author Organization [facility] Address [address] [place] [address] Care Team Providers Name Role Phone Monroe Gómez MD Primary Care Provider Encounter Details Date Type Department Care Team Description 08/31/2017 Hospital Encounter [facility]- [place] Unknown, Provider, [facility] [address] [facility] [phone] [place] [address] (Work) [phone] Social History Tobacco Use Types Packs/Day Years Used Date Never Assessed Sex Assigned at Date Recorded Not on file documented as of this encounter Medications at Time of Discharge Medication Sig Dispensed Refills Start Date End Date acetaminophen (TYLENOL) 500 Take 500 mg by mouth 0 12/17/2016 mg tablet every 6 hours as needed for Pain. documented as of this encounter Discharge Disposition Disposition Code Departure Means Destination Home or Self Longterm documented in this encounter Plan of Treatment Not on filedocumented as of this encounter Visit Diagnoses Not on filedocumented in this encounter Care Teams Brickmason Apprentice Relationship Specialty Start Date End Date Monroe Gómez MD PCP - General 06/16/[address] [place] [address] [address] [place], [place] [address] documented as of this encounter
--- OUTSIDE RECORDS SUMMARY | 2022-07-31 00:21 | XMS_ITS | Encounter Summary ---
:1950 Author Organization [facility] Address [address] [place] [address] Care Team Providers Name Role Phone Aldo Yung OD Primary Care Provider Encounter Details Date Type Department Care Team Description 07/07/2010 Hospital Encounter [facility] Eli Garcia MD Ophthalmology - Main [address] [place] [address] [place] [id number] [address], [place] [address] (Wo rk) Social History Tobacco Use Types Packs/Day Years Used Date Never Assessed Sex Assigned at Date Recorded Not on file documented as of this encounter Discharge Disposition Disposition Code Departure Means Destination Home or Self Group Home documented in this encounter Procedure Notes Jad Garcia MD - 07/08/2010 0539 EDT DIVISION OF O[facility]THALMOLOGY [facility] PROCEDURE REPORT SERVICE DATE: 07/07/2010 INDICATIONS: Vein occlusion. FINDINGS: 0.7 cup-to-disc ratio shunt vessels on the disc. 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 No macular edema noted. PLAN: No intervention recommended other than good control of blood sugar, blood pressure, blood lipids and continued monitoring of anterior segment for neovascularization. See letter to Dr Yung. Unless otherwise noted, there were no complications, no blood loss, cultures obtained, specimens removed, or drains retained. Electronically Signed by Jad Garcia MD 07/13/2010 14:54 Jad Garcia MD Retina and Vitreous Service [address] [place] [address], [facility], [place] [address] - Jad Garcia MD - [place] Job ID: SM Doc ID: [id number] Ext Doc ID: [id number] cc: documented in this encounter Consult Notes Jad Garcia MD - 07/08/2010 0539 EDT DIVISION OF OPHTHALMOLOGY [facility] CONSULTATION - 07/07/2010 Aldo Yung OD [address] [place] [address], [address] [place] [address] Dear Christian: I was my pleasure to consult on Yonatan Guardado today in the retina clinic. As you know, he has evidence of venous occlusion in his right eye. 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 He has blot hemorrhages in the temporal periphery and some juxtafoveal microvasculopathy. Fortunately, his fovea is dry. He does have some shunt vessels on the disc, consistent with chronicity. Both discs are cupped right about 0.7, left about 0.8. Today intraocular pressures were 15 in each eye on Alphagan and Travatan. Comment: 1. The patient said he has had a blood workup recently. The main things that I would be concerned about in him would include glaucoma (IOPs seems to be reasonably well controlled). I defer to you, Christian, on ongoing management of his chronic problem, i.e., glaucoma. 2. We need to make sure his blood sugar, blood pressure and blood lipids are under excellent control. Today, blood pressure was good at 118/80. He tells me that his lipids and CBC were acceptable to you, Miky. We should get a fasting blood sugar on him to make sure he is not a diabetic. I also did gonioscopy on the patient today. Indication: Vein occlusion. Gonioscopically his angle was open 360 degrees without jeremias thus there is no indication to intervene based upon angle neovascularization. My plan is to see the patient again in 6 weeks, primarily to follow his anterior segment problem I am hopeful that he will maintain good acuity in this eye because the problem looks chronic and well compensated with shunts. Lastly, I strongly encouraged the patient to consider cessation of tobacco and suggested that he getinto some smoke stoppers program. With best personal regards, Electronically Signed by Jad Garcia MD 07/13/2010 14:54 Jad Garcia MD Retina and Vitreous Service [address] [place] [address] - Jad Garcia MD - [facility] Job ID: SM Doc ID: [id number] Ext Doc ID: [id number] cc: Aldo Yung OD documented in this encounter Plan of Treatment Not on filedocumented as of this encounter Visit Diagnoses Not on filedocumented in this encounter Care Teams Tiger Machine Operator Relationship Specialty Start Date End Date Aldo Yung, JEANINE PCP - General 07/07/10 06/15/161999 [facility] [place] [address] documented as of this encounter
--- OUTSIDE RECORDS SUMMARY | 2022-07-31 00:21 | XMS_ITS | Clinical Summary ---
:1950 Author Organization [facility] [place] [address] Care Team Providers Name Role Phone Kassy Urbina YANE Primary Care Provider [phone] Allergies No known active allergies Encounters Date Type Specialty Care Team Description 07/09/2022 Transcribe Orders Primary Care Oswaldo Neoplasm o f brain Jj Doshi MD 07/03/2022 - Emergency Emergency Jose Alejandro, Cerebrovascular 07/04/2022 Medicine DO Darrel accident (CVA), unspecified mec hanism from Last 3 Months Immunizations Name Administration Dates Next Due Pneumococcal Polyvalent 23 09/16/2006 Social History Tobacco Use Types Packs/Day Years Used Date Never Assessed Sex Assigned at Date Recorded Not on file Last Filed Vital Signs Vital Sign Reading [...] - - Body Mass Index - - Plan of Treatment Upcoming Encounters Date Type Specialty Care Team Description 09/29/2022 Office Visit Neurology Sherrell Acuña MD [facility] NEUROLOGY DEPT [place], [place] [address] (Wo rk) Health Maintenance Due Date Last Done Comments Covid-19 Vaccine (#1) 1957 Hepatitis C Screening 1970 Lipid Screening 1970 Tdap adult 1971 Tetanus vaccine 1971 Colonoscopy 1997 Zoster vaccine (1 of 2) 2002 Advance Directive 2007 Pneumoccocal Vaccine: 65+ (1 - PCV) 2017 09/16/2006 Influenza (Flu) vaccine (1 of 1 - Influenza standard 07/23/2022 series) Procedures Procedure Name Priority Date/Time Associated Comments Diagnosis RAPID DRUG SCREEN W/O STAT 07/03/2022 11:40 Re sults for this CONFIRMATION, URINE PM EDT procedur e are in the results section. RAPID DRUG SCREEN, STAT 07/03/2022 11:40 Resul [...] procedure are i n the results section. KUMAR TUBE HOLD STAT [...] re are in SERUM the results section. HC MAGNESIUM, SERUM STAT 07/03/2022 8:10 PM Re sults for this EDT procedure are i n the results section. BASIC METABOLIC PANEL STAT 07/03/2022 8:10 PM Results for this (NON-FASTING) EDT procedure are in the results section. HC CBC,PLT & AUTO STAT 07/03/2022 8:10 PM DIFF EDT from Last 3 Months Results Rapid Drug Screen, Urine (RAMA Request) (07/03/2022 11:40 PM EDT) Incisive Surgical Method Time Signature RAMA Conf No [facility] LABORATORY RAMA Requested See Comment [facility] Comment: Refer to Rapid Drug Screen w/o Confirmation, Urine for results. Specimen Anatomical Collection Method Collection Time Receive d Time (Source) Location / / Volume Laterality Urine 07/03/2022 11:40 07/04/2022 PM EDT 12:46 AM EDT Resulting Agency Comment Spec In Lab Darrelvlad Blount DO URINE ORDERABLES Performing Organization Address City/State/[place] [address] Rapid Drug Screen w/o Confirmation, Urine (07/03/2022 11:40 PM EDT) Incisive Surgical Method Time Signature U Barbiturates None None [facility] Screen Detected [facility] LABORATORY Comment: The barbiturate screen detects barbitura [...] U Benzodiazepines Screen None Detected None Detected [facility] Comment: The benzodiazepines screen detects benzo [...] U Cocaine Screen None Detected None Detected [facility] Comment: The cocaine metabolites screen detects b enzoylecgonine (Cocaine Metabolite) at concentrations >150 ng/mL. A ? Presumptive Positive? result indicates that the screening result was positive but has not yet been confirmed by a highly-specific method. As with any screen, occasional false positive re sults from cross-reacting substances may occur. Not for Medico-Legal Purposes. U Methadone Metabolites None Detected None Detected [facility] LABORATORY Comment: The methadone metabolite screen detects EDDP (major methadone metabolite) at concentrations >100 ng/mL. A ? Presumptive Positive? result indicates that the screening result was positive but has not yet been confirmed by a highly-specific method. As with any screen, occasional false positive re sults from cross-reacting substances may occur. Not for Medico-Legal Purposes. U Opiate Screen None Detected None Detected [facility]OR[facility] Comment: The opiates screen detects opiates at co ncentrations >300 ng/mL. Please note that oxycodone, oxymorphone, fentanyl, tramadol, and other synthetic opioids are not detected by [facility] opiate screen. A ? Presumptive Positive? result indicates that the screening result was positive but has not yet been confirmed by a highly-specific method. As with any screen, occasional false positive re sults from cross-reacting substances may occur. Not for Medico-Legal Purposes. U Cannabinoid Screen None Detected None Detected Jose FOSS [facility] Comment: The marijuana metabolites screen detects the THC metabolite (50-chw-5-carboxy-delta 9-THC) at concen trations >20 ng/mL. A ? Presumptive Positive? result indicates that the screening result was positive but has not yet been confirmed by a highly-specific method. As with any screen, occasional false positive re sults from cross-reacting substances may occur. Not for Medico-Legal Purposes. U Oxycodone Screen None Detected None Detected [facility] Comment: The oxycodone screen detects oxycodone a nd oxymorphone at concentrations >100 ng/mL. A ? Presumptive Positive? result indicates that the screening result was positive but has not yet been confirmed by a highly-specific method. As with any screen, occasional false positive re sults from cross-reacting substances may occur. Not for Medico-Legal Purposes. U Buprenorphine Screen None Detected None Detected [facility] Comment: The buprenorphine screen detects bupreno rphine at concentrations >5 ng/mL. A ? Presumptive Positive? result indicates that the screening result was positive but has not yet been confirmed by a highly-specific method. As with any screen, occasional false positive re sults from cross-reacting substances may occur. Not for Medico-Legal Purposes. U Fentanyl Screen None Detected None Detected Jose [facility] Comment: The fentanyl screen detects fentanyl at concentrations >2 ng/mL. A ? Presumptive Positive? result indicates that the screening result was positive but has not yet been confirmed by a highly-specific method. As with any screen, occasional false positive re sults from cross-reacting substances may occur. Not for Medico-Legal Purposes. U Tricyclics Screen None Detected None Detected FLORA DAMICO [facility] Comment: The tricyclics screen detects tricyclic [...] U Ethanol Screen None Detected None Detected [facility] Comment: This urine ethanol assay detect s ethanol at concentrations >/= 100 mg/L. U Amphetamines Screen None Detected None Detected [facility] Comment: The amphetamine screen detects d-ampheta mine and d-methamphetamine at concentrations >300 ng/mL. A ? Presumptive Positive? result indicates that the screening result was positive but has not yet been confirmed by a highly-specific method. As with any screen, occasional false positive re sults from cross-reacting substances may occur. Not for Medico-Legal Purposes. U Adulterants Screen None Detected None Detected Jose [facility] Comment: No adulteration or dilution of [...] Maddox MD CHEMISTRY ORDERABLES Performing Organization Address City/[facility]/[place] [address] [facility] [address] Urinalysis with reflex Culture (07/03/2022 11:40 PM EDT) Patholo gist Method Time Signature Glucose UA Negative Negative [facility] mg/dL [facility] Protein UA Negative Negative [facility] mg/dL [facility]ORY Bilirubin UA Negative Negative [facility] mg/dL [facility] Comment: Clinical correlation required for positi ve Urine Bilirubin results as false positive may occur with some drugs and d rug related products. If a false positive is suspected a serum total bili whyte should be considered if clinically indicated. Urobilinogen UA Normal Normal mg/dL [facility] LAB[facility] pH UA 5.5 5.0 - 8.0 [facility] Blood UA Negative Negative mg/dL [facility] Ketones UA Negative Negative mg/dL [facility] Nitrite UA Negative Negative [facility] Leukocytes UA Negative Negative [facility] LABORATORY Appearance UA Clear Clear [facility] LABORATORY Spec Commiskey UA 1.022 1.005 - 1.030 [facility] Color UA Yellow Yellow [facility] Culture Reflexed No [facility] LABORATORY Specimen Anatomical Collection Method Collection Time Receive d Time (Source) Location / / Volume Laterality Clean Catch 07/03/2022 11:40 07/04/2022 Urine PM EDT 12:46 AM EDT Resulting Agency Comment Spec In Lab Pernell Bacaicoa PICK REMOVER URINE ORDERABLES Performing Organization Address City/[facility]/[place] [address] EKG 12 Lead (07/03/2022 10:25 PM EDT) Component Value Ref Range Test Analysis Performed Pathologis t Method Time At Signature Ventricular rate 57 BPM MUSE SYSTEM Atrial Rate 57 BPM MUSE SYSTEM P-R Interval 140 ms MUSE SYSTEM QRS Duration 118 ms MUSE SYSTEM Q-T Interval 412 ms MUSE SYSTEM QTC Calculated 401 ms MUSE SYSTEM (Bezet) Calculated P Slemp 54 degrees MUSE SYSTEM Calculated R Slemp 71 degrees MUSE SYSTEM Calculated T Slemp 33 degrees MUSE SYSTEM INTERPRETATION Sinus bradycardia MUSE SY STEM Incomplete right bundle branch block Borderline ECG No previous ECGs available Confirmed by MD GARSIA ARMIN ([id number]) on 07/04/2022 5:34:47 PM Specimen Anatomical Collection Method Collection Time Receive d Time (Source) Location / / Volume Laterality 07/03/2022 10:25 07/04/2022 5:34 PM EDT PM EDT Pernell Oseguera PICK REMOVER ECG ORDERABLES Performing Organization Address City/State/ZIP Code [...] who have questions please contact the health insurance healthcare representative that requested your imaging first. ? Narrative 07/03/2022 8:54 PM EDT EXAMINATION: CT [...] ho have questions please contact the health insurance healthcare representative that requested your imaging first. Pernell Bacadriannacoa PICK REMOVER IMG CT ORDERABLES TSH [place] (07/03/2022 8:10 PM EDT) P athologist Signature TSH 2.59 0.27 - 4.20 FIL[place] MARY mcIU/mL [facility] LABORATORY Comment: Reference Interval (mcIU/mL): Females: ??First Trimester: 0.23-3.88 ??Second Trimester: 0.22-3.90 ??Third Trimester: 0.44-4.66 Specimen Anatomical Collection Method Collection Time Receive d Time (Source) Location / / Volume Laterality Blood 07/03/2022 8:10 PM 8:17 EDT PM EDT Resulting Agency Comment Spec In Lab Pernell Bacaicoa PICK REMOVER CHEMISTRY ORDERABLES Performing Organization Address City/[facility]/ZIP [place] [address] Kumar Tube Hold (07/03/2022 8:10 PM EDT) athologist Signature Kumar Hold Sample in [facility] lab. [facility] LABORATORY Specimen Anatomical Collection Method Collection Time Receive d Time (Source) Location / / Volume Laterality Blood Venous Draw / 07/03/2022 8:10 PM 07/03/20 8:17 Unknown EDT PM EDT Pernell Medinacoa PICK REMOVER CHEMISTRY ORDERABLES Performing Organization Address City/[facility]/ZIP [facility] [place] [address] (ABNORMAL) Hemogram (07/03/2022 8:10 PM EDT) Analysis Performed At Patho logist Time Signature WBC 7.8 4.0 - 9.5 [facility] x10(3)/[facility] LABORATORY RBC 4.31 (L) 4.58 - [facility] 5.54 [facility] x10(6)/[facility] LABORATORY Hemoglobin 14.2 13.7 - [facility] 16.5 g/dL [facility] LABORATORY Hematocrit 40.5 40.5 - [facility] 48.5 % [facility] LABORATORY MCV 94.0 (H) 82.9 - [facility] 93.1 [facility] LABORATORY MCH 32.9 (H) 27.5 - [facility] pg [facility] LABORATORY MCHC 35.1 32.0 - [facility] 35.7 g/dL [facility] LABORATORY Platelets 224 145 - 357 [facility] x10(3)/[facility] LABORATORY RDWSD 43.8 36.0 - [facility]0 [facility] LABORATORY RDWCV 12.7 11.4 - [facility] MARY 13.8 % [facility] LABORATORY MPV 8.8 7.6 - 12.9 [facility] LABORATORY nRBC % Auto 0.0 % [facility] nRBC Abs Auto 0.000 0.000 - [facility] 0.000 [facility] x10(3)/[facility] LABORATORY Specimen Anatomical Collection Method Collection Time Receive d Time (Source) Location / / Volume Laterality Blood 07/03/2022 8:10 PM 8:17 EDT PM EDT Resulting Agency Comment Spec In Lab Pernell Oseguera APRN HEMATOLOGY ORDERABLES Performing Organization Address City/State/ZIP [place] [address] Differential, Automated (07/03/2022 8:10 PM EDT) P athologist Signature Neutrophils % 60.5 % [facility] Neutr Abs (ANC) 4.72 1.70 - [place] MARY 6.10 [facility] x10(3)/[facility] LABORATORY Lymphocytes % 27.7 % [facility] Lymphocytes Abs 2.2 0.9 - 3.2 [facility] x10(3)/[facility] LABORATORY Monocytes % 7.4 % [facility] Monocyte Abs 0.6 0.3 - 0.9 [facility] x10(3)[facility] LABORATORY Eosinophils % 3.3 % [facility] Eosinophils Abs 0.3 0.0 - 0.4 [facility] x10(3)[facility] LABORATORY Basophils % 0.8 % [facility] Basophils Abs 0.1 0.0 - 0.1 [facility] x10(3)/[facility] LABORATORY Immature Gran % 0.30 % [facility] Comment: Immature granulocytes(IG's)percentage an d absolute count will include metamyelocytes, myelocytes, and promyelo cytes. Blood smears from CBCs yielding IG's will be scanned manually for concor dance. If this scan disagrees with the automated IG or if promyelocytes are not ed, a manual differential will be performed. Precious Gran Abs 0.02 0.00 - 0.04 x10(3)/[facility] MAR Y [facility] LABORATORY Specimen Anatomical Collection Method Collection Time Receive d Time (Source) Location / / Volume Laterality Blood 07/03/2022 8:10 PM 2 8:17 EDT PM EDT Resulting Agency Comment Spec In Lab Pernell Bacaicoa PICK REMOVER HEMATOLOGY ORDERABLES Performing Organization Address [facility]/ZIP [facility] Phon e Number [address] Blue Tube HOLD (07/03/2022 8:10 PM EDT) P athologist Signature Blue Hold Sample in [facility]. [facility] LABORATORY Specimen Anatomical Collection Method Collection Time Receive d Time (Source) Location / / Volume Laterality Blood Venous Draw / 07/03/2022 8:10 PM 07/03/20 22 8:17 Unknown EDT PM EDT Pernell Bacaicoa PICK REMOVER HEMATOLOGY ORDERABLES Performing Organization Address City/[facility]/ZIP Code Phon e Number [address] Magnesium (07/03/2022 8:10 PM EDT) P athologist Signature Magnesium 0.95 0.69 - 1.07 [facility] mmol/L [facility] LABORATORY Specimen Anatomical Collection Method Collection Time Receive d Time (Source) Location / / Volume Laterality Blood 07/03/2022 8:10 PM 2 8:17 EDT PM EDT Resulting Agency Comment Spec In Lab Pernell Bacaicoa PICK REMOVER CHEMISTRY ORDERABLES Performing Organization Address City/[facility]/[place] [address] Basic Metabolic Panel (non-fasting) (07/03/2022 8:10 PM EDT) P athologist Signature Glucose Lvl 99 65 - 199 [facility] mg/dL [facility] LABORATORY Comment: Diabetes: >=200 mg/dL plus symp toms BUN 20 10 - 20 mg/dL [facility] LABORATORY Creatinine 0.93 0.80 - 1.50 mg/dL [facility] LABOR[facility] Sodium 140 135 - 145 mmol/L [facility] LABORATORY Potassium 4.3 3.5 - 5.0 mmol/L [facility] LABORATORY Comment: Please note: ??Patients with WBC >100,00 0 may have falsely elevated Potassium levels. ??For accurate Potassium quantif ication in these patients send serum separator tube (gold top) for subsequent determinations. ??Contact the Clinical Chemistry Laboratory if there are any qu estions. Chloride 103 98 - 107 mmol/L [facility] CO2 25 22 - 31 mmol/L [facility] Anion Gap 12 5 - 15 mmol/L [facility] LABORATORY Calcium 9.9 8.5 - 10.5 mg/dL [facility] LABORATORY Estimated GFR 89 >=60 mL/min/1.73 m?? [facility] Comment: This patient's estimated GFR was [...] Agency Comment Spec In Lab Pernell Oseguera PICK REMOVER CHEMISTRY ORDERABLES Performing Organization Address City/State/[place] [address] from Last 3 Months Insurance Payer Benefit Plan / Subscriber ID Effective Dates Phone Addre ss Type Group MEDICARE MEDICARE PART A [id number] 2022-Present [phone] [place] [address] & [place] [address] Care Teams Joist Setter Relationship Specialty Start Date End Date Kassy Urbina APRN PCP - General Family Medicine 07/09/[address] [place] [address]
--- OUTSIDE RECORDS SUMMARY | 2022-07-31 00:21 | XMS_ITS | Encounter Summary ---
:1950 Author Organization [facility] Address [address] [place] [address] Care Team Providers Name Role Phone Monroe Gómez MD Primary Care Provider Encounter Details Date Type Department Care Team Description 05/06/2017 Results Only [facility]- Nathanael Gloria, [address] [place] [address] [place] [address] (Wo rk) Social History Tobacco Use Types Packs/Day Years Used Date Never Assessed Sex Assigned at Date Recorded Not on file documented as of this encounter Plan of Treatment Not on filedocumented as of this encounter Procedures Procedure Name Priority Date/Time Associated Diagnosis Comme nts CYTOPATHOLOGY Routine 05/06/2017 0:00 EDT Results for this procedure are i n the results section . documented in this encounter Results CYTOPATHOLOGY (05/06/2017 0:00 EDT) Pathology Report: CYTOPATHOLOGY REPORT [facility] LAB[facility] Reports generated via electronic interface contain lilly ginal data; SERVICES however they are lacking the format of the original re port. Caution should be taken when reading/interpreting unfo rmatted reports. Name: ? YONATAN CABRERA ? Accession #: ? [id number] : ? 1950 (Age: [age]) ??M ?Collect Date: ? 05/06 Location: ? [facility] ? Receive Date : ? 05/07/2017 Provider: ? NATHANAEL RAHMAN MD Copy to: ?TISH MARQUES MAINFRAME CONSULTANT ? CYTOLOGIC DIAGNOSIS: URINE, NOS: - ?Negative for malignancy. - ? Reactive and degenerated urothelial cell s, several mixed inflammatory cells, and occasional red blood cells. ? Document reviewed and electronically signed by: ? JORGE GOMEZ MD Report Date: ??05/07/2017 17:06 By the signature above, the attending physician certif ies that he/she has personally conducted a gross and/or microscopic examin ation of the described specimens and rendered or confirmed the above diagnosi s. Specimen Type: ? Urine, NOS Clinical History: ? Bladder cancer; diffuse erythema on cystoscopy; S/P BC G. ? Gross Description: ? 320ccs of clear yellow fluid (Cytolyt added) were rece ived and processed by selective cellular enhancement technique. ? End of Report Specimen Performing Organization Address City/State/ZIP Code Phon e Number [facility] LABOR[facility]ORY [address] [place] [address] SERVICES documented in this encounter Visit Diagnoses Not on filedocumented in this encounter Care Teams Ocular Care Technician Relationship Specialty Start Date End Date Monroe Gómez MD PCP - General 06/16/16 [address] [facility] [address] [place] [address] documented as of this encounter
--- OUTSIDE RECORDS SUMMARY | 2022-07-31 00:21 | XMS_ITS | Encounter Summary ---
:1950 Author Organization [facility] [place] [address] Care Team Providers Name Role Phone Kassy Urbina YANE Primary Care Provider [phone] Reason for Referral Consultation (Urgent) - Authorized Specialty Diagnoses / Procedures Referred By Contact Refer red To Contact Neurology Diagnoses Neoplasm of brain CVA Jj Chacon MD [facility] Neurology [address]c [address] [place], [place] [address] [place] [phone] Fax: Referral ID Status Reason Start Expiration Visits Visits Date Date Requested Authorized [id number] Authorized Consult, 07/09/2022 07/09/2023 6 6 Test & Treat PCP Updated and/or Approved Encounter Details Date Type Department Care Team Description 07/09/2022 Transcribe Orders eDH Incoming Jj Chacon lasm of brain Referrals MD [place] [phone] [place], [place] [id number] (Wo rk) Social History Tobacco Use Types Packs/Day Years Used Date Never Assessed Sex Assigned at Date Recorded Not on file documented as of this encounter Plan of Treatment Upcoming Encounters Date Type Specialty Care Team Description 09/29/2022 Office Visit Neurology Sherrell Acuña MD [facility] DR NEUROLOGY DEPT [place], [place] [address] (Wo rk) Scheduled Referrals Name Type Priority Associated Diagnoses Order S chedule Referral to Outpatient Referral STAT Neoplasm of brain Ord ered: Neurology 07/09/2022 documented as of this encounter Visit Diagnoses Diagnosis Neoplasm of brain Neoplasm of unspecified nature of brain documented in this encounter Care Teams Critical Care Nurse Specialist Relationship Specialty Start Date End Date Kassy Urbina APRN PCP - General Family Medicine 07/09/22 [facility] [address] [place] [address] documented as of this encounter
--- OUTSIDE RECORDS SUMMARY | 2022-07-31 00:21 | XMS_ITS | Encounter Summary ---
:[address] [facility] Address [address] [place] [address] Care Team Providers Name Role Phone Monroe Gómez MD Primary Care Provider Encounter Details Date Type Department Care Team Description 09/10/2016 Results Only [facility]- Nathanael Gloria, [address] [place] [address] [place] [address] (Wo rk) Social History Tobacco Use Types Packs/Day Years Used Date Never Assessed Sex Assigned at Date Recorded Not on file documented as of this encounter Plan of Treatment Not on filedocumented as of this encounter Procedures Procedure Name Priority Date/Time Associated Diagnosis Comme [facility] SURGICAL PATHOLOGY Routine 09/10/2016 9:37 EDT Re sults for this procedure are i n the results section. documented in this encounter Results SURGICAL PATHOLOGY (09/10/2016 9:37 EDT) Pathology SURGICAL PATHOLOGY REPORT [facility] Report: Reports generated via electronic interface conta in original data; CENTER LABORATORY however they are lacking the format of the original re port. SERVICES Caution should be taken when reading/interpreting unfo rmatted reports. Name: ? YONATAN CABRERA ? Accession #: ? [id number] ? : ? 1950 (Age: 8 4) ??M ? Collect Date: ? 09/10/2016 ? Location: ? [facility] ? Receive Date: ? 016 ? Provider: NATHANAEL RAHMAN MD Copy to: MONROE GÓMEZ MD ? Final Pathologic Diagnosis: BLADDER, TUMOR, BIOPSY: - ??Papillary urothelial carcinoma, non-invasive, low grade. 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 - ??Chronic cystitis. - ??No muscularis propria identified. Comment: This case was presented and reviewed at intradepartmen michael consultation conference. Document reviewed and electronically signed by: Deion Bosch MD Report ??Date: 09/15/2016 17:51 By the signature above, the attending physician certif ies that he/she has personally conducted a gross and/or microscopic examin ation of the described specimens and rendered or confirmed the above diagnosi s. Specimen(s) Received: Bladder tumor Clinical History: Bladder cancer; hx urothelial Ca bladder 05/2016 Gross Description: ? Received in formalin labelled with proper patient identification (initials R, E) and bladder tumor are three fragments of enriquez-pink tissue ranging from 0.3 to 0.7 cm in greatest di mension. The specimens are submitted entirely in 1. BANDAR Child (ASCP) 09/11/2016 9:55 AM End of Report Specimen Performing Organization Address City/State/ZIP Code Phon e Number [facility] [address] [place] [address] SERVICES documented in this encounter Visit Diagnoses Not on filedocumented in this encounter Care Teams Marine Reporter Relationship Specialty Start Date End Date Monroe Gómez MD PCP - General 06/16/[address] [phone] documented as of this encounter
--- OUTSIDE RECORDS SUMMARY | 2022-07-31 00:21 | XMS_ITS | Encounter Summary ---
:1950 Author Organization [facility] Address [address] [place] [address] Care Team Providers Name Role Phone Monroe Gómez MD Primary Care Provider Encounter Details Date Type Department Care Team Description 01/07/2017 Hospital Encounter [facility]- Ciara Unknown, Provider, [facility] [address] [facility] [phone] [place] [address] (Work) [phone] Social History Tobacco Use Types Packs/Day Years [...] Code Departure Means Destination Home or Self Skilled Nursing documented in this encounter Plan of Treatment Not on filedocumented as of this encounter Visit Diagnoses Not on filedocumented in this encounter Care Teams Patient Biller Relationship Specialty Start Date End Date Monroe Gómez MD PCP - General 06/16/[address] [place] [address] [address] [place], [place] [phone] documented as of this encounter
--- OUTSIDE RECORDS SUMMARY | 2022-07-31 00:21 | XMS_ITS | Encounter Summary ---
:1950 Author Organization [facility] Address [address] [place] [address] Care Team Providers Name Role Phone Aldo Yung OD Primary Care Provider Encounter Details Date Type Department Care Team Description 01/24/2007 Results Only [facility] - Akira Ramirez MD Maple conversion [address] [facility] [address] [place], [place] [id number] [place] [address] [phone] Social History Tobacco Use Types Packs/Day Years Used Date Never Assessed Sex Assigned at Date Recorded Not on file documented as of this encounter Plan of Treatment Not on filedocumented as of this encounter Procedures Procedure Name Priority Date/Time Associated Diagnosis Comme nts SURGICAL PATHOLOGY Routine 01/24/2007 0:00 EST Re sults for this procedure are i n the results section. documented in this encounter Results SURGICAL PATHOLOGY (01/24/2007 0:00 EST) Pathology Report: SURGICAL PATHOLOGY REPORT [facility] Reports generated via electronic interface contain lilly ginal data; LAB however they are lacking the format of the original re port. Caution should be taken when reading/interpreting unfo rmatted reports. Name: ? YONATAN CABRERA ? Accession #: ? [id number] ? : ? 1950 (Age: 56) ??M ? Collect Date: ? 01/24/2007 ? Location: ? [facility] ? Receive Date: ? 007 ? Provider: AKIRA RAMIREZ MD Copy to: NEAL GOYAL MD ? Final Pathologic Diagnosis: A. ?Colon, descending, polyp, biopsy: 1. ?Polypoid colonic mucosa with ritter rface epithelial hyperplastic changes. B. ?Colon, sigmoid, 30 cm, polyp, biopsy: 1. ?Hyperplastic polyp (two pieces), no a denoma. C. ?Rectum, 10 cm, polyp, biopsy: ? 1. ?? Hyperplastic polyp (two pieces), no adeno ma. Comment: ? Deeper sections of (A) were also examined. ??(Mika Bosch)/opal Document reviewed and electronically signed by: Deion Bosch MD Report ??Date: 01/26/2007 15:21 By the signature above, the attending physician certif ies that he/she has personally conducted a gross and/or microscopic examin ation of the described specimens and rendered or confirmed the above diagnosi s. Specimen(s) Received: A. ?Descending colon polyp B. ? Polyp sigmoid 30 cm C. ? Rectum 10 cm polyp Clinical History: ? Screening Gross Description: ? Received in Hollande' s fixative labelled Cabrera and descend colon polyp is a single enriquez-pink specimen of soft tissue that sean ures 0.3 cm in maximum dimension. ??The specimen is entirely submitted as (A) . ?? Received in Hollande's fixative labelled Cabrera and #2 polyp 30 cm are two portions of enriquez-pink soft tissue. ??The smaller measur es 0.2 cm in maximum dimension. ??The larger sean ures 0.5 cm in maximum dimension. ??The specimen is entirely submitted as (B). ?? Received in [facility] fixat esau labelled Cabrera and #3 bx rectum polyp 10 cm are two enriquez-pink specimens of soft tissue each measuri ng 0.3 cm in maximum dimension. ??The specimen is entirely submitted as (C) . ??(Dr. Burgess)/tmg End of Report Specimen Performing Organization Address City/State/ZIP Code Phon e Number [facility] [address] [place] [address] SERVICES [facility] [address] [place] [address] documented in this encounter Visit Diagnoses Not on filedocumented in this encounter Care Teams Fertilizer Processing Supervisor Relationship Specialty Start Date End Date Aldo Yung OD PCP - General 07/07/10 06/15/[address] [place] [address] ,[address] [place] [address] documented as of this encounter
--- OUTSIDE RECORDS SUMMARY | 2022-07-31 00:21 | XMS_ITS | Encounter Summary ---
:1950 Author Organization [facility] Address [address] [place] [address] Care Team Providers Name Role Phone Monroe Gómez MD Primary Care Provider Encounter Details Date Type Department Care Team Description 08/31/2017 Results Only [facility]- Nathanael Gloria, [address] [place] [address] [place] [address] (Wo rk) Social History Tobacco Use Types Packs/Day Years Used Date Never Assessed Sex Assigned at Date Recorded Not on file documented as of this encounter Plan of Treatment Not on filedocumented as of this encounter Procedures Procedure Name Priority Date/Time Associated Diagnosis Comme nts CYTOPATHOLOGY Routine 08/31/2017 0:00 EDT Results for this procedure are i n the results section . documented in this encounter Results CYTOPATHOLOGY (08/31/2017 0:00 EDT) Pathology Report: CYTOPATHOLOGY REPORT [facility] Reports generated via electronic interface contain lilly ginal data; SERVICES however they are lacking the format of the original re port. Caution should be taken when reading/interpreting unfo rmatted reports. Name: ? YONATAN CABRERA ? Accession #: ? [id number] : ? 1950 (Age: [age]) ??M ?Collect Date: ? 08/22 Location: ? [facility] ? Receive Date : ? 09/01/2017 Provider: ? NATHANAEL ARHMAN MD Copy to: ?TISH MARQUES ROLL UP OPERATOR ? CYTOLOGIC DIAGNOSIS: URINE, VOIDED, CYTOLOGIC EVALUATION: - Atypical urothelial cells. ??See comment. ? COMMENT: Cytologic evaluation reveals rare atypic al but markedly degenerated urothelial cells with hyperchromatic nuclei. ??The scant and degenerative nature of these cells precludes further evaluation. ??Clinical c orrelation is recommended. ?? Document reviewed and electronically signed by: ? YIFAN VEGA MD Report Date: ??09/02/2017 14:00 By the signature above, the attending physician certif ies that he/she has personally conducted a gross and/or microscopic examin ation of the described specimens and rendered or confirmed the above diagnosi s. Specimen Type: ? Urine, Voided Clinical History: ? Bladder cancer ? Gross Description: ? 100ccs of clear yellow fluid were receiv ed and processed by selective cellular enhancement technique. ? End of Report Specimen Performing Organization Address City/State/ZIP Code Phon e Number [facility] [address] [place] [address] SERVICES documented in this encounter Visit Diagnoses Not on filedocumented in this encounter Care Teams Waste Reclaimer Relationship Specialty Start Date End Date Monroe Gómez MD PCP - General 06/16/[address] [address] documented as of this encounter
--- OUTSIDE RECORDS SUMMARY | 2022-07-31 00:21 | XMS_ITS | Encounter Summary ---
:1950 Author Organization [facility] Address [address] [place] [address] Care Team Providers Name Role Phone Monroe Gómez MD Primary Care Provider Encounter Details Date Type Department Care Team Description 04/09/2022 Abstract [facility] Mónica Patel NP Rheumatology [address] [facility] [address] [facility] [address], [address] [place] [address] [place] [address] (Wo rk) Social History Tobacco Use Types [...] on file documented as of this encounter Progress Notes Moses Colby MA - 04/09/2022 1306 EDT Abstraction done jms documented in this encounter Plan of Treatment Not on filedocumented as of this encounter Visit Diagnoses Not on filedocumented in this encounter Historical Medications This list may reflect changes made after this encounter. Medication Sig Dispensed Refills Start Date End Date [place] 500 mg capsule Take by mouth daily. 0 multivit-min/ferrous Take by mouth daily. 0 09/23 fumarate (MULTI VITAMIN ORAL) acetaminophen (TYLENOL) 500 Take 500 mg by mouth 0 12/17/2016 mg tablet every 6 hours as needed for Pain. added in this encounter Care Teams Machine Erector Relationship Specialty Start Date End Date Monroe Gómez MD PCP - General 06/16/[address] [place] [id number] documented as of this encounter
--- OUTSIDE RECORDS SUMMARY | 2022-07-31 00:21 | XMS_ITS | Encounter Summary ---
:1950 Author Organization [facility] Address [address] [place] [address] Care Team Providers Name Role Phone Monroe Gómez MD Primary Care Provider Encounter Details Date Type Department Care Team Description 02/13/2022 Lab Requisition [facility] Outr Resulting Lab, Pathology & Laboratory Provider [facility] [address] [place], [place] [id number] Social History Tobacco Use Types Packs/Day Years Used Date Never Assessed Sex Assigned at Date Recorded Not on file documented as of this encounter Plan of Treatment Not on filedocumented as of this encounter Procedures Procedure Name Priority Date/Time Associated Diagnosis Comme nts LYME AB Routine 02/13/2022 7:39 EDT Results for this procedure are i n the results section. RHEUMATOID FACTOR Routine 02/13/2022 7:39 EDT Res ults for this procedure are i n the results section. documented in this encounter Results LYME AB (02/13/2022 7:39 EDT) Pathologist Sig nature Lyme Ab Negative Negative [facility] SERVICES Specimen Blood - Venous blood (substance) Performing Organization Address [facility]/ZIP Code Phon e Number [facility] [address] [place] [address] SERVICES (ABNORMAL) RHEUMATOID FACTOR (02/13/2022 7:39 EDT) Pathologist Sig nature Rheumatoid Factor 16.0 (H) <12.0 IU/mL [facility] SERVICES Specimen Blood - Venous blood (substance) Performing Organization Address [facility] Phon e Number [facility] [address] [place] [address] SERVICES documented in this encounter Visit Diagnoses Not on filedocumented in this encounter Care Teams Waitress Relationship Specialty Start Date End Date Monroe Gómez MD PCP - General 06/16/[address] [place] [address] documented as of this encounter
--- OUTSIDE RECORDS SUMMARY | 2022-07-31 00:21 | XMS_ITS | Encounter Summary ---
:1950 Author Organization [facility] Address [address] [place] [address] Care Team Providers Name Role Phone Monroe Gómez MD Primary Care Provider Encounter Details Date Type Department Care Team Description 01/07/2017 Results Only [facility]- Nathanael Gloria, [address] [place] [address] [place] [address] (Wo rk) Social History Tobacco Use Types Packs/Day Years Used Date Never Assessed Sex Assigned at Date Recorded Not on file documented as of this encounter Plan of Treatment Not on filedocumented as of this encounter Procedures Procedure Name Priority Date/Time Associated Diagnosis Comme [facility] SURGICAL PATHOLOGY Routine 01/07/2017 10:37 Resul ts for this EST procedure are i n the results section. documented in this encounter Results SURGICAL PATHOLOGY (01/07/2017 10:37 EST) Pathology Report: SURGICAL PATHOLOGY REPORT [facility] Reports generated via electronic interface contain lilly ginal data; LABORATORY however they are lacking the format of the original re port. SERVICES Caution should be taken when reading/interpreting unfo rmatted reports. Name: ? YONATAN CABRERA ? Accession #: ? [id number] ? : ? 1950 (Age: 8 4) ??M ? Collect Date: ? 01/07/2017 ? Location: ? [facility] ? Receive Date: ? 01/08/20 17 ? Provider: NATHANAEL RAHMAN MD Copy to: TISH MARQUES EMBLEM CUTTER ? Final Pathologic Diagnosis: A. 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 - Negative for invasive lesion. - Chronic follicular cystitis. - Thin smooth muscle bundles identified, uncerta in for muscularis propria; no tumor involvement. B. URINARY BLADDER, POSTERIOR WALL, BIOPSY: - Focal urothelial carcinoma in situ (CIS) in a backgr ound of urothelial proliferation of uncertain malignant potential. - Negative for invasive lesion. - Muscularis propria identified; no tumor involvement. - Chronic cystitis. Comment: This case has been reviewed by Dr. Nasima Ruiz in consu ltation. Document reviewed and electronically signed by: Deion Bosch MD Report ??Date: 01/17/2017 08:38 By the signature above, the attending physician certif ies that he/she has personally conducted a gross and/or microscopic examin ation of the described specimens and rendered or confirmed the above diagnosi s. Specimen(s) Received: A. ?Left side of bladder B. ? Posterior bladder wall Clinical History: Prior bx: high grade tumor i nto lamina propria but no muscle identified; bladder cancer Gross Description: A. ?Received in formalin labelled with proper p atient identification (initials R, E) and left si de of bladder is a single pink-enriquez tissue fragment (0.6 x 0.5 x 0.3 cm). Submitted intact in A1. B. ?Received in formalin labelled with proper p atient identification (initials R, E) and posterior bladder wall are multiple enriquez-oates cauterized soft tissue fragments (0.26 g, 1.0 x 0.5 x 0.2 cm in aggregate). ?? The specimen is entirely submitted as B1. BANDAR Nelson (ASCP) 01/11/2017 11:36 AM End of Report Specimen Performing Organization Address City/State/ZIP Code Phon e Number [facility] [address] [place] [address] SERVICES documented in this encounter Visit Diagnoses Not on filedocumented in this encounter Care Teams Concept Artist Relationship Specialty Start Date End Date Monroe Gómez MD PCP - General 06/16/[address] [place] [phone] documented as of this encounter
--- OUTSIDE RECORDS SUMMARY | 2022-07-31 00:21 | XMS_ITS | Encounter Summary ---
:1950 Author Organization [facility] Address [address] [place] [address] Care Team Providers Name Role Phone Monroe Gómez MD Primary Care Provider Encounter Details Date Type Department Care Team Description 05/11/2019 Results Only [facility]- Nathanael Gloria, [address] [place] [address] [place] [address] (Wo rk) Social History Tobacco Use Types Packs/Day Years Used Date Never Assessed Sex Assigned at Date Recorded Not on file documented as of this encounter Plan of Treatment Not on filedocumented as of this encounter Procedures Procedure Name Priority Date/Time Associated Diagnosis Comme [facility] SURGICAL PATHOLOGY Routine 05/11/2019 21:35 Resul ts for this EDT procedure are i n the results section. documented in this encounter Results SURGICAL PATHOLOGY (05/11/2019 21:35 EDT) Pathology SURGICAL PATHOLOGY REPORT [facility] Report: Reports generated via electronic interface conta in original data; CENTER LABORATORY however they are lacking the format of the original re port. SERVICES Caution should be taken when reading/interpreting unfo rmatted reports. Name: ? YONATAN CABRERA ? Accession #: ? [id number] ? : ? 1950 (Age: 8 6) ??M ? Collect Date: ? 05/11/2019 ? Location: ? [facility] ? Receive Date: ? 05/11/20 19 ? Provider: NATHANAEL RAHMAN MD Copy to: NEAL CEDENO MD ? Final Pathologic Diagnosis: URINARY BLADDER, NECK, TUMOR, BIOPSY: - Low grade papillary urothelial lesion, favor papillary urothelial carcinoma, noninvasive, low-grade. - No high-grade features identified. - No definitive invasion identified. - Small bundles of smooth muscle identif ied, uncertain for muscularis propria; no tumor involvement. Comment: This case was presented and reviewed at the intradepar tmental consultation conference. Deeper sections were examined. Document reviewed and electronically signed by: Deion Bosch MD Report ??Date: 05/18/2019 13:49 By the signature above, the attending physician certif ies that he/she has personally conducted a gross and/or microscopic examin ation of the described specimens and rendered or confirmed the above diagnosi s. Specimen(s) Received: Bladder tumor Clinical History: Bladder CA, papillary lesion at bladder neck Gross Description: ? Received in formalin labelled with proper patient identification (initials R, E) and bladder tumor is a single ovoid port ion of brown papillary tissue (0.9 x 0.7 x 0.5 cm). The specimen is bisected and sub mitted in 1. BANDAR Child (ASCP) 05/12/2019 7:55 AM End of Report Specimen Performing Organization Address City/State/ZIP Code Phon e Number [facility] [address] [place] [address] SERVICES documented in this encounter Visit Diagnoses Not on filedocumented in this encounter Care Teams Tie Puller Relationship Specialty Start Date End Date Monroe Gómez MD PCP - General 06/16/[address] [place] [phone] documented as of this encounter
--- OUTSIDE RECORDS SUMMARY | 2022-07-31 00:21 | XMS_ITS | Encounter Summary ---
:1950 Author Organization [facility] Address [address] [place] [address] Care Team Providers Name Role Phone Aldo Yung OD Primary Care Provider Encounter Details Date Type Department Care Team Description 06/11/2016 Results Only [facility]- Nathanael Gloria, [address] [place] [address] [place] [address] (Wo rk) Social History Tobacco Use Types Packs/Day Years Used Date Never Assessed Sex Assigned at Date Recorded Not on file documented as of this encounter Plan of Treatment Not on filedocumented as of this encounter Procedures Procedure Name Priority Date/Time Associated Diagnosis Comme [facility] SURGICAL PATHOLOGY Routine 06/11/2016 9:40 EDT Re sults for this procedure are i n the results section. documented in this encounter Results SURGICAL PATHOLOGY (06/11/2016 9:40 EDT) Pathology Report: SURGICAL PATHOLOGY REPORT [facility] Reports generated via electronic interface contain lilly ginal data; LABORATORY however they are lacking the format of the original re port. SERVICES Caution should be taken when reading/interpreting unfo rmatted reports. Name: ? YONATAN CABRERA ? Accession #: ? [id number] ? : ? 1950 (Age: 8 3) ??M ? Collect Date: ? 06/11/2016 ? Location: ? [facility] ? Receive Date: ? 06/11/20 16 ? Provider: NATHANAEL RAHMAN MD Copy to: SANJUANA FARR MD ? 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 See synoptic report and comment. - Muscularis propria present; negative for tumor. SYNOPTIC REPORT ? PROCEDURE: ?? TURBT TUMOR TYPE: ?? Non-invasive (papillary) urothelial car cinoma NON-INVASIVE HISTOLOGIC TYPE: ?? Non-invasive urotheli al (transitional cell) carcinoma HISTOLOGIC GRADE: ?? Urothelial carcinoma - Low-grade MICROSCOPIC TUMOR EXTENSION: ?? Noninvasive papillary carcinoma TUMOR CONFIGURATION: ?? Papillary ADEQUACY OF MATERIAL FOR DET ERMINING MUSCULARIS PROPRIA INVASION: ?? Muscularis propria (detrusor muscle) present LYMPH-VASCULAR INVASION: ?? Not identified ASSOCIATED EPITHELIAL LESIONS: ?? None identified Comment: The lesion demonstrates a fo berenice inverted growth pattern; however no definitive invasion is identified. Damir Cottrell 06/15/2016 11:24 AM Document reviewed and electronically signed by: MARY OSMAN MD Report ??Date: 06/15/2016 16:18 By the signature above, the attending physician certif ies that he/she has personally conducted a gross and/or microscopic examin ation of the described specimens and rendered or confirmed the above diagnosi s. Specimen(s) Received: Bladder mass Clinical History: Bladder tumor (papillary) Gross Description: ? Received in formalin labelled with proper patient identification (initials R, E) and bladder mass is an aggregate of enriquez- oates soft, friable, papillary soft tissue (2.0 g, 2.7 x 2.4 x 0.6 cm). The specimen is submitted entirely in 11-26. 06/12/2016 10:46 AM End of Report Specimen Performing Organization Address City/State/ZIP Code Phon e Number [facility] [address] [place] [address] SERVICES documented in this encounter Visit Diagnoses Not on filedocumented in this encounter Care Teams Ambulance Mechanic Relationship Specialty Start Date End Date Aldo Yung, JEANINE PCP - General 07/07/10 06/15/[address] [place] [address] documented as of this encounter
--- OUTSIDE RECORDS SUMMARY | 2022-07-31 00:21 | XMS_ITS | Encounter Summary ---
:1950 Author Organization [facility] Address [address] [place] [address] Care Team Providers Name Role Phone Monroe Gómez MD Primary Care Provider Encounter Details Date Type Department Care Team Description 09/10/2016 Hospital Encounter [facility]- Ciara Unknown, Provider, [facility] [address] [facility] [phone] [place] [address] (Work) [phone] Social History Tobacco Use Types Packs/Day Years Used Date Never Assessed Sex Assigned at Date Recorded Not on file documented as of this encounter Discharge Disposition Disposition Code Departure Means Destination Home or Self Correction documented in this encounter Plan of Treatment Not on filedocumented as of this encounter Visit Diagnoses Not on filedocumented in this encounter Care Teams Memory Care Program Director Relationship Specialty Start Date End Date Monroe Gómez MD PCP - General 06/16/16 [address] [facility] [address] [place], [place] [id number] documented as of this encounter
--- OUTSIDE RECORDS SUMMARY | 2022-07-31 00:21 | XMS_ITS | Encounter Summary ---
:1950 Author Organization Address [address] [place] [address] Care Team Providers Name Role Phone Monroe Gómez MD Primary Care Provider Encounter Details Date Type Department Care Team Description 12/17/2016 Hospital Encounter [facility] - S Unknown, Pro Qamar lopez MD [address] [facility] [phone] [place] [address] (Work) [phone] Social History Tobacco Use Types Packs/Day Years [...] Code Departure Means Destination Home or Self Penitentiary documented in this encounter Plan of Treatment Not on filedocumented as of this encounter Visit Diagnoses Not on filedocumented in this encounter Care Teams Biofuels Processing Technician Relationship Specialty Start Date End Date oMnroe Gómez MD PCP - General 06/16/[address] [place] [address] [address] [place] [address] documented as of this encounter
--- OUTSIDE RECORDS SUMMARY | 2022-07-31 00:21 | XMS_ITS | Encounter Summary ---
:1950 Author Organization [facility] Address [address] [place] [address] Care Team Providers Name Role Phone Monroe Gómez MD Primary Care Provider Encounter Details Date Type Department Care Team Description 09/23/2017 Results Only [facility]- Nathanael Gloria, [address] [place] [address] [place] [address] (Wo rk) Social History Tobacco Use Types Packs/Day Years Used Date Never Assessed Sex Assigned at Date Recorded Not on file documented as of this encounter Plan of Treatment Not on filedocumented as of this encounter Procedures Procedure Name Priority Date/Time Associated Diagnosis [facility] SURGICAL PATHOLOGY Routine 09/23/2017 8:45 EDT Re sults for this procedure are i n the results section. documented in this encounter Results SURGICAL PATHOLOGY (09/23/2017 8:45 EDT) Pathology Report: SURGICAL PATHOLOGY REPORT [facility] Reports generated via electronic interface contain lilly ginal data; LABORATORY however they are lacking the format of the original re port. SERVICES Caution should be taken when reading/interpreting unfo rmatted reports. Name: ? YONATAN CABRERA ? Accession #: ? [id number] ? : ? 1950 (Age: [age]) ??M ? Collect Date: ? 09/23/2017 ? Location: ? [facility] ? Receive Date: ? 09/24/20 17 ? Provider: NATHANAEL RAHMAN MD Copy to: NEAL CEDENO MD ? Final Pathologic Diagnosis: URINARY BLADDER, BIOPSY: - Portion of subepithelial connective tissue with capi llary congestion. - Small focus of basal-parabasal layer of urothelial l ining with reactive atypia. - Muscularis propria not present. Document reviewed and electronically signed by: Deion Bosch MD Report ??Date: 09/28/2017 14:45 By the signature above, the attending physician certif ies that he/she has personally conducted a gross and/or microscopic examin ation of the described specimens and rendered or confirmed the above diagnosi s. Specimen(s) Received: Bladder tissue (TUR of erythematous patch of mucosa) Clinical History: Hx bladder cancer, has had intravesical BCG in past, e rythematous area in bladder, ? CIS Gross Description: ? Received in formalin labelled with proper patient identification (initials R, E) and bladder tissue i s a brown-oates tissue, 0.2 x 0.1 x 0.1 cm. Entirely submitted in 1. BANDAR Avila ([facility]) 09/24/2017 9:25 AM End of Report Specimen Performing Organization Address City/State/ZIP Code Phon e Number [facility] [address] [place] [address] SERVICES documented in this encounter Visit Diagnoses Not on filedocumented in this encounter Care Teams Cloth Laminating Supervisor Relationship Specialty Start Date End Date Monroe Gómez MD PCP - General 06/16/[address] [place] [address] documented as of this encounter
--- OUTSIDE RECORDS SUMMARY | 2022-07-31 00:21 | XMS_ITS | Encounter Summary ---
:1950 Author Organization [facility] Address [address] [place] [address] Care Team Providers Name Role Phone Monroe Gómez MD Primary Care Provider Reason for Visit Reason Onset Date Comments Appointment Related 07/16/2022 cancelled 8.19 telem ed(phone) appt Encounter Details Date Type Department Care Team Description 07/16/2022 Telephone [facility] - Yovanny Angela ment Related [facility] Rheumatology [employer] Sales (cancelled [address]. [address] [facility] telemed(phone) appt) [place] [address] [facility], [address] [place] [address] Social History Tobacco Use Types Packs/Day Years [...] making decisions? 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 Monica still walk . He saw Ortho on 07/13 and they said he needs a hip replacement. Diana doesn't want to do that until he is done with his neurology work up so they are going to do a fluoro guided left hip injection on 07/23/22. I told Diana that since he is being followed by ortho and was being seen here for osteoarthritis, no need for him to reschedule at this time. FYI. elephone Encounter - Rowan Garcia - 07/16/2022 1542 EDT Reason for Call: Appointment Related (cancelled 07.10 telemed(phone) appt) Summary/Symptoms: Balance Assembler reached out patient to see if he wanted to rsc appt. Per Diana, , patient had a stroke on 06.29.2019 and can not talk. Per Diana, requesting a call back to discuss what is going on with him currently and to discuss if future appt's will be needed. Removed from Cancellation call list Rowan Garcia 07/16/2022 15:43 documented in this encounter Plan of Treatment Not on filedocumented as of this encounter Visit Diagnoses Not on filedocumented in this encounter Care Teams Shovel Handle Assembler Relationship Specialty Start Date End Date Monroe Gómez MD PCP - General 06/16/[address] [place] [id number] documented as of this encounter
--- OUTSIDE RECORDS SUMMARY | 2022-07-31 00:21 | XMS_ITS | Encounter Summary ---
:1950 Author Organization [facility] Address [address] [place] [address] Care Team Providers Name Role Phone Monroe Gómez MD Primary Care Provider Encounter Details Date Type Department Care Team Description 09/23/2017 Hospital Encounter [facility] - S Unknown, Pro Qamar lopez MD [address] [facility] [phone] [place] [address] (Work) [phone] Social History Tobacco Use Types Packs/Day Years [...] Code Departure Means Destination Home or Self Prison documented in this encounter Plan of Treatment Not on filedocumented as of this encounter Visit Diagnoses Not on filedocumented in this encounter Care Teams Ski Lift Operator Relationship Specialty Start Date End Date Monroe Gómez MD PCP - General 06/16/[address] [place] [address] [address] [place] [address] documented as of this encounter
--- OUTSIDE RECORDS SUMMARY | 2022-07-31 00:21 | XMS_ITS | Encounter Summary ---
:1950 Author Organization [facility] Address [address] [place] [address] Care Team Providers Name Role Phone Aldo Yung OD Primary Care Provider Encounter Details Date Type Department Care Team Description 06/11/2016 Hospital Encounter [facility]- Ciara Unknown, Provider, [facility] [address] [facility] [phone] [place] [address] (Work) [phone] Social History Tobacco Use Types Packs/Day Years Used Date Never Assessed Sex Assigned at Date Recorded Not on file documented as of this encounter Discharge Disposition Disposition Code Departure Means Destination Home or Self Longterm documented in this encounter Plan of Treatment Not on filedocumented as of this encounter Visit Diagnoses Not on filedocumented in this encounter Care Teams Housekeeping Laundry Worker Relationship Specialty Start Date End Date Aldo Yung OD PCP - General 07/07/10 06/15/16 [facility] [address] [place] [address] documented as of this encounter
--- OUTSIDE RECORDS SUMMARY | 2022-07-31 00:21 | XMS_ITS | Clinical Summary ---
:[address] [facility] Address [address] [place] [address] Care Team Providers Name Role Phone Monroe Gómez MD Primary Care Provider Allergies No known active allergies Medications Medication Sig Dispensed Refills Start Date End Date Status acetaminophen Take 500 mg by 0 12/17/2016 Active (TYLENOL) 500 mg mouth every 6 tablet hours as needed for Pain. multivit-min/ferrous Take by mouth 0 09/23/2018 Active fumarate (MULTI daily. VITAMIN ORAL) [place] 500 mg Take by mouth 0 01/08/2022 Active capsule daily. rfstfie-wywo-olgok-ore Take by mouth 0 Active g-capryl 100 mg-150 daily. mg- 50 mg-150 mg capsule UNABLE TO FIND daily. tumeric 0 Active naproxen (NAPROSYN) Take 1 Tablet by 180 Tablet 1 05/15/2022 Active 500 mg mouth 2 times tabletIndications: daily with Swelling of both hands breakfast and dinner. Active Problems Problem Noted Date Edema 04/09/2022 Acute hyperglycemia 01/20/[address] 10/22/2020 Bilateral inguinal hernia without obstruction or gangr swathi 04/09/2016 Bladder cancer ([facility]) 11/22/2015 Elevated rheumatoid factor Diverticulitis large intestine Tobacco dependence Prediabetes Osteoarthritis, chronic Encounters Date Type Specialty Care Team Description 07/16/2022 Telephone Rheumatology Mónica Angela, Appointm ent Related [employer]LECT[employer] (cancelled 8.19 telemed(phone) appt) 05/15/2022 Office Visit Rheumatology Mónica Angela, Left hip pain (Primary Dx); [employer] Chronic pain of left knee; Swelling of bot h hands from Last 3 Months Immunizations Name Administration Dates Next Due Shingrix (Zoster Vaccine, Recombinant) IM 12/05/2021 Surgical History Surgery Date Site/Laterality Comments CYSTOSCOPY FOOT SURGERY TURP Medical History Medical History Date Comments Bladder tumor 12/17/2016 Diverticulitis Malignant neoplasm of overlapping sites of bladder ([facility]) 07/15/2016 (HCC) Parapelvic renal cyst 04/2021 Renal mass 03/2021 Social History Tobacco Use Types Packs/Day Years [...] Body Mass Index 29.33 05/15/2022 1310 EDT Plan of Treatment Health Maintenance Due Date Last Done Comments Hepatitis C Screen 1950 COVID-19 Vaccine (#1) 02/07/1951 Fall Risk Screening 05/15/2023 05/15/2022, 04/10/2022 Insurance Payer Benefit Plan / Subscriber ID Effective Dates Phone Addre ss Type Group MEDICARE MEDICARE A/B [id number] 2021-Present [id number] [place] [address] Yonatan Cabrera Personal/Family Self 1950 [address] [phone] [place], ([place]) [place] [address] Yonatan Cabrera Personal/Family Self 1950 [address] [phone] [place], ([place]) [place] [address] Yonatan Cabrera Personal/Family Self 1950 [address] [phone] [place], ([place]) [place] [address] Yonatan Cabrera Personal/Family Self 1950 [address] [phone] [place], ([place]) [place] [address] Yonatan Cabrera Personal/Family Self 1950 [address] [phone] [place], ([place]) [place] [address] Yonatan Cabrera Personal/Family Self 1950 [address] [phone] [place], ([place]) [place] [address] Yonatan Cabrera Personal/Family Self 1950 [address] [phone] [place], ([place]) [place] [address] Care Teams Brass Pickler Relationship Specialty Start Date End Date Monroe Gómez MD PCP - General 06/16/[address] [place] [address] [address] [place] [address]
--- NOTE | 2022-07-31 07:45 | DI.US_ITS ---
Exam(s) US CAROTID EXAM: US CAROTID CLINICAL HISTORY: MCA stroke,CEREBRAL INFARCTION, I63.9. TECHNIQUE: Ultrasound carotids performed using grayscale, color-flow, and spectral Doppler imaging. COMPARISON: US US RENAL from 04/30/2021 FINDINGS: CAROTID ARTERIES: Visually, there appears to be only mild plaque in the common carotid arteries. Piyush e plaque is evident at the carotid bulbs and proximal internal carotid arteries but without significa ntly elevated velocities. VERTEBRAL ARTERIES: Antegrade flow demonstrated bilaterally in both vertebral arteries Measurements: R Bulb: 27.1cm/s PS / 0cm/s ED R CCA: 45.2cm/s PS / 7.6cm/s ED R ECA: 127.7cm/s PS / 17.7cm/s ED R ICA Prox: 107.3cm/s PS / 35.6cm/s ED R ICA Mid: 16.1cm/s PS / 5.5cm/s ED R ICA Distal: 15.3cm/s PS /5.1cm/s ED R Vert: 51.5cm/s PS / 18.6cm/s ED R SVR: 2.4 R DVR: 4.7 L Bulb: 83.8cm/s PS / 12.6cm/s ED L CCA: 96.6cm/s PS / 21.7cm/s ED L ECA: 83.2cm/s PS / 13.4cm/s ED L ICA Prox: 109.8cm/s PS / 32.3cm/s ED L ICA Mid: 82.8cm/s PS / 30.5cm/s ED L ICA Distal: 73.8cm/s PS / 25.1cm/s ED L Vert: 50.8cm/s PS / 19.3cm/s ED L SVR:1.1 L DVR:1.5 IMPRESSION: Mild plaque noted bilaterally, slightly more so on the right side. However, less than 50 percent clementine nosis bilaterally. Criteria for Carotid Stenosis: Normal: ICA PSV <125 cm/s no plaque or intimal thickening is visible. <50% stenosis: ICA PSV <125 cm/s and plaque or intimal thickening is visible. 50-69% stenosis: ICA PSV is 125-250 cm/s and plaque is visible. >70% stenosis to near occlusion: ICA PSV >250 cm/s with visible plaque and luminal narrowing. DATA REPOSITORY:
== END 2022-07-31 00:38 ==
LOC: DI 00:18
PROVIDERS: PCP Nurse Practitioner; Visit Provider Family Medicine
DX: I63.9 Cerebral infarction, unspecified (principal); I65.23 Occlusion and stenosis of bilateral carotid arteries
CPT/HCPCS: 93880

== ENCOUNTER 2022-10-07 07:43 | Outpatient (CLI) | payer MEDICARE, SELFPAY ==
[2022-10-07 12:42] LABS: Calculated LDL 31 mg/dL (<100); Cholesterol 77 mg/dL (<200); HDL Cholesterol 32 mg/dL (40-60); Triglyceride 71 mg/dL (<150)
== END 2022-10-07 07:44 | disposition home or self-care (01) ==
LOC: LOS 07:44
PROVIDERS: PCP Family Medicine; Visit Provider Family Medicine
DX: E78.5 Hyperlipidemia, unspecified (principal)
CPT/HCPCS: 36415; 80061

== ENCOUNTER 2022-12-21 09:33 | Outpatient (CLI) | payer MEDICARE, SELFPAY ==
--- NOTE | 2022-12-21 08:45 | DI.RAD_ITS ---
Exam(s) XR PELVIS AP EXAM: XR PELVIS AP CLINICAL HISTORY: pre BRITT planning. TECHNIQUE: 2D digital imaging was performed. One image was obtained. COMPARISON: CR XR HIP LT COMPLETE AP PELVIS from 07/13/2022 FINDINGS: BONES: No acute fracture is present. No bony destructive lesion is seen. JOINTS: No dislocation present. There are marked degenerative changes again seen in the left hip with loss of the superior joint space. Subchondral cysts and sclerosis are also noted. In the right hip , there is moderate joint space narrowing with subchondral cysts and sclera chondral sclerosis. SOFT TISSUE: Normal. IMPRESSION: Bilateral osteoarthritis of the hips, left greater than right. DATA REPOSITORY: RADIATION DOSE DELIVERED:
== END 2022-12-21 09:34 | disposition home or self-care (01) ==
LOC: DIORS 09:33
PROVIDERS: PCP Family Medicine; Referring Provider Family Medicine; Visit Provider Student in an Organized Health Care Education/Training Program
DX: M16.12 Unilateral primary osteoarthritis, left hip (principal); I63.9 Cerebral infarction, unspecified
CPT/HCPCS: 99214; 72170

== ENCOUNTER 2022-12-28 02:58 | Outpatient (CLI) | payer MEDICARE, SELFPAY ==
[2022-12-28 13:16] LABS: ALT 44 U/L (16-63); AST 24 U/L (15-37)
== END 2022-12-28 02:59 | disposition home or self-care (01) ==
LOC: LBO 03:04
PROVIDERS: PCP Family Medicine; Visit Provider Family Medicine
DX: E78.5 Hyperlipidemia, unspecified (principal); K76.0 Fatty (change of) liver, not elsewhere classified
CPT/HCPCS: 36415; 84450; 84460

== ENCOUNTER 2023-01-07 01:26 | Outpatient (CLI) | payer MEDICARE, SELFPAY ==
[2023-01-07 13:10] LABS: Ferritin 208 ng/mL (26-388)
== END 2023-01-07 01:27 | disposition home or self-care (01) ==
PROVIDERS: PCP Family Medicine; Visit Provider Nurse Practitioner
DX: G47.33 Obstructive sleep apnea (adult) (pediatric) (principal); G47.61 Periodic limb movement disorder; K76.0 Fatty (change of) liver, not elsewhere classified
CPT/HCPCS: 36415; 82728

== ENCOUNTER 2023-02-08 03:47 | Outpatient (CLI) | payer MEDICARE, SELFPAY ==
[2023-02-08 15:05] LABS: HCT 41.9 % (40.0-50.0); HGB 14.8 g/dL (13.5-17.5); MCH 33.2 pg (27.0-33.0); MCHC 35.3 % (32.0-36.0); MCV 94 fL (80-95); MPV 8.9 fL (8.0-11.0); Platelet Count 242 10^3/uL (130-400); RBC 4.46 10^6/uL (4.36-5.78); RDW 12.4 % (11.8-14.1); RDW-SD 43.1 fL
[2023-02-08 16:46] LABS: Anion Gap 11.3 mmol/L (3-11); BUN 16 mg/dL (7-18); CO2 23.7 mmol/L (21.0-32.0); CREATININE 1.1 mg/dL (0.70-1.30); Calcium 9.6 mg/dL (8.5-10.1); Chloride 105 mmol/L (98-107); Estimated GFR 72.22 (mL/min/1.73m2); Glucose 154 mg/dL (74-106); Potassium 4.1 mmol/L (3.5-5.1); Sodium 140 mmol/L (136-145)
== END 2023-02-08 03:48 | disposition home or self-care (01) ==
LOC: LBO 03:47
PROVIDERS: PCP Family Medicine; Visit Provider Student in an Organized Health Care Education/Training Program
DX: M16.12 Unilateral primary osteoarthritis, left hip; Z01.818 Encounter for other preprocedural examination; Z01.812 Encounter for preprocedural laboratory examination; M17.11 Unilateral primary osteoarthritis, right knee; M17.12 Unilateral primary osteoarthritis, left knee
CPT/HCPCS: 36415; 80048; 85027; 99214

== ENCOUNTER 2023-02-16 06:11 | Day surgery (SDC) | payer MEDICARE, SELFPAY ==
[2023-02-16] VITALS (9 sets, daily range): BP systolic 110–135; BP diastolic 56–91; PULSE 89–98; RESP 17–20; TEMP 36–36.6; O2SAT 94–98; BMI 30.3
[2023-02-16] MEDS: Celecoxib 200 MG CAP 400 MG PO (06:42)
[2023-02-16] MEDS: Acetaminophen 500 MG TAB 1000 MG PO (06:42)
[2023-02-16] MEDS: Lactated Ringers 1,000 ML 80 ML IV (06:55)
--- NOTE | 2023-02-16 06:55 | ANES.PREOP_ITS ---
General Info Date of Service Date Performed: 02/16/23 Height: 5 ft 10 in Weight: 95.9 kg Body Mass Index (BMI): 30.3 Surgical Procedure: Operation Date: 02/16/23 07:50 Proposed Procedure Side Surgeon p Hip Total Hip Anterior Left Jose De Jesus Levy MD Meds Allergies and Home Medications Allergies Allergy/AdvReac Type Severity Reaction Status Date / Time No Known Allergies Allergy Unverified 02/16/23 06:28 Home Medication Medication Instructions Recorded rosuvastatin 20 mg tablet 20 mg PO DAILY 08/26/22 acetaminophen 500 mg tablet 1,000 mg PO Q8H PRN pain #90 tabs 02/16/23 aspirin 81 mg tablet,delayed 81 mg PO BID 30 days #60 tabs 02/16/23 release celecoxib 200 mg capsule (Celebrex) 200 mg PO BID PRN #60 caps 02/16/23 dexamethasone 4 mg tablet 4 mg PO DAILY #2 tabs 02/16/23 docusate sodium 100 mg capsule 100 mg PO BID #30 caps 02/16/23 (Colace) oxycodone 5 mg tablet 5 mg PO Q6H PRN #12 tabs 02/16/23 pantoprazole 40 mg tablet,delayed 40 mg PO DAILY 14 days #14 tabs 02/16/23 release Current Visit Medications: Current Medications Generic Name Dose Route Start Last Admin Trade Name Freq PRN Reason Stop Dose Admin Acetaminophen 1,000 mg 02/16/23 06:00 02/16/23 06:42 Acetaminophen 500 Mg Tab PO 02/16/23 16:00 1,000 mg PREOP JOHNNY Administration Celecoxib 400 mg 02/16/23 06:00 02/16/23 06:42 Celecoxib 200 Mg Cap PO 400 mg PREOP JOHNNY Administration Tranexamic Acid 1,000 mg/ 60 mls @ 360 mls/hr 02/16/23 06:00 Sodium Chloride IV 02/16/23 18:00 PREOP JOHNNY Ringer's Solution 1,000 mls @ 80 mls/hr 02/16/23 06:00 IV 03/17/23 23:59 INFUSION JOHNNY Cefazolin Sodium/Dextrose 2 gm in 50 mls @ 100 mls/hr 02/16/23 06:00 Ancef Duplex IVPB 03/17/23 23:59 PREOP JOHNNY IV Miscellaneous Supplies 1 each 02/16/23 06:00 Iv Access IV 03/17/23 23:59 DIRECTED JOHNNY Sodium Chloride 0 ml 02/16/23 06:00 Normal Saline Flush 10 Ml Syr IV 03/17/23 23:59 PRN PRN Sodium Chloride 0 ml 02/16/23 06:00 Normal Saline 10 Ml Vial IJ 03/17/23 23:59 DIRECTED PRN Sterile Water 0 ml 02/16/23 06:00 Water,Injection,Sterile 10 Ml Vial IJ 03/17/23 23:59 DIRECTED PRN PFSH Active Problems Active Problems: Problem Status Onset Code Primary osteoarthritis of left knee M17.12 Primary osteoarthritis of right knee M17.11 Aphasia as late effect of cerebrovascular accident ~06/2022 I69.320 Screening for colon cancer Z12.11 Sleep trouble G47.9 Conductive hearing loss, external ear H90.2 Impacted cerumen, right ear H61.21 Hernia K46.9 Degenerative joint disease of right hip M16.11 Degenerative joint disease of left hip M16.12 CVA (cerebral vascular accident) I63.9 Diverticulitis large intestine K57.32 Medical History Medical History Abnormal chest CT 03/2021- repeat in 6 months 09/2021- no change repeat 1 year Bilateral inguinal hernia, without obstruction or gangrene, not specified as recurrent (04/09/16) Bladder cancer 2016 Bladder tumor (12/17/16) DR. RAHMAN Diverticulitis Edema Elevated rheumatoid factor Hyperglycemia [id number] Malignant neoplasm of overlapping sites of bladder (07/15/16) paillary urothelial, non invasive, multiple sites Osteoarthritis Parapelvic renal cyst 04/2021 by US Prediabetes Renal mass 03/2021- noted on CT- US recommended and ordered 05/12- parapelvic cyst Tobacco dependence 01/2022, 1 ppd, hx of about 40 pk yr Surgical History Surgical History (Updated 02/16/23 @ 06:30 by Bonnie Almaguer) Hx of colonoscopy Hx of cystoscopy Hx of foot surgery Hx of transurethral resection of prostate Tobacco Smoking/Tobacco Use Status: Current every day Tobacco Type: cigarettes Passive smoking exposure: Yes Second hand exposure: Yes Alcohol Alcohol Intake: current Alcohol intake frequency: holidays/special occasions only Alcohol type: beer Substance Use Substance use: Never Substance use type: does not use Details: alcohol: t-120 Vital Signs and Lab Results Vital Signs Most Recent Vital Signs in EMR: Most Recent Vital Signs Temp Pulse Resp BP Pulse Ox 36.4 C L 92 H 18 126/74 98 02/16/23 06:31 02/16/23 06:31 02/16/23 06:31 02/16/23 06:31 02/16/23 06:31 Lab Results Blood Type / Crossmatch: No Data to Display Complete Blood Count: White Blood Count 7.70 10^3/uL (4.4-10.8) 02/08/23 14:50 Red Blood Count 4.46 10^6/uL (4.36-5.78) 02/08/23 14:50 Hemoglobin 14.8 g/dL (13.5-17.5) 02/08/23 14:50 Hematocrit 41.9 % (40.0-50.0) 02/08/23 14:50 Platelet Count 242 10^3/uL (130-400) 02/08/23 14:50 Complete Metabolic Panel: Sodium 140 mmol/L (136-145) 02/08/23 14:50 Potassium 4.1 mmol/L (3.5-5.1) 02/08/23 14:50 Chloride 105 mmol/L (98-107) 02/08/23 14:50 Carbon Dioxide 23.7 mmol/L (21.0-32.0) 02/08/23 14:50 BUN 16 mg/dL (7-18) 02/08/23 14:50 Creatinine 1.1 mg/dL (0.70-1.30) 02/08/23 14:50 Est GFR (CKD-EPI 2020) 72.22 (mL/min/1.73m2) 02/08/23 14:50 Calcium 9.6 mg/dL (8.5-10.1) 02/08/23 14:50 Glucose 154 mg/dL (74-106) H 02/08/23 14:50 Liver Function Panel: No Data to Display Coagulation Panel: No Data to Display Cardiac Panel: No Data to Display Arterial Blood Gas: 2 No Data to Display Venous Blood Gas: No Data to Display Pancreas Panel: No Data to Display Thyroid Panel: No Data to Display Infectious Disease: No Data to Display Blood Cultures: No Data to Display Toxicology Panel: No Data to Display Anesthesia Assessment and Plan Anesthesia History Personal History: No History of Anesthesia Complications Family History: No Family History of Anesthesia Complications and Family History Unknown Exercise Tolerance Exercise Tolerance: Metabolic Equivalents<4 Pertinent Negatives Pertinent Negatives: No Symptoms of GERD, No Major Cardiovascular Symptoms or Complaints, No Major Pulmonary Symptoms or Complaints and Other (CVA 06/2022 aphasia improving) Cardiac & Pulmonary Exam Cardiac Exam: Normal S1/S2 Heart Sounds Pulmonary Exam: Rhonchi Present (bilateral, smoker) Implantable Cardiac Device Does patient have a Pacemaker or an ICD?: No Airway Exam Known Difficult Airway: No Mallampati Class: 2 Mouth Opening: Normal (> 3cm) Thyromental Distance: Greater than 3 cm Neck Range of Motion: Full ROM Neck Circumference: Normal Teeth Condition: Edentulous ASA Classification ASA Score: ASA 3 Emergency Case?: No NPO Status NPO Status: NPO Clears >2 hours, Solids >8 hours Anesthesia Plan Resuscitation Status: Full Code Anesthesia Technique: Spinal Anesthesia Airway Planned: Natural Airway Monitors Used: Standard Monitors Preoperative Comments:: Increased risk for stroke discussed.
--- NOTE | 2023-02-16 07:16 | DSE_ITS ---
Date of service: 02/16/23 Time of Service: 07:21 DS: Diagnosis Discharge Diagnosis (1) Degenerative joint disease of left hip: Status: Acute Discharge Plan Disposition Patient Disposition: Home Condition: Good Discharge Details Reason For Visit: Left hip DJD Attending Provider: Jose De Jesus Levy Primary Care Provider: Jj Chacon Home Meds and New Rx's Prescriptions: New acetaminophen 500 mg tablet 1,000 mg PO Q8H PRN Qty: 90 0RF Rx Instructions: Take two tablets up to every 8 hours as needed for pain aspirin 81 mg tablet,delayed release (DR/EC) 81 mg PO BID 30 Days Qty: 60 0RF celecoxib [Celebrex] 200 mg capsule 200 mg PO BID PRNQty: 60 0RF Rx Instructions: Take one tablet twice daily for pain and inflammation docusate sodium [Colace] 100 mg capsule 100 mg PO BID Qty: 30 0RF pantoprazole 40 mg tablet,delayed release (DR/EC) 40 mg PO DAILY 14 Days Qty: 14 0RF dexamethasone 4 mg tablet 4 mg PO DAILY Qty: 2 0RF Rx Instructions: Take one tablet once daily for two days oxycodone 5 mg tablet 5 mg PO Q6H PRNQty: 12 0RF Rx Instructions: Take for severe postoperative pain Continued rosuvastatin 20 mg tablet 20 mg PO DAILY Patient Comments: TAKE ONE TABLET BY MOUTH EVERY DAY Discontinued aspirin 81 mg tablet,delayed release (DR/EC) 81 mg PO DAILY Qty: 90 3RF meloxicam 7.5 mg tablet 7.5 mg PO DAILY Qty: 30 1RF acetaminophen [Mapap Extra Strength] 500 MG tablet 500 mg PO PRN PRN Discharge Instructions Additional Instructions: Total Hip Discharge Instructions Activity: The most important activity is to walk. You should try to take short walks a few times a day. You have no restrictions on movement or positioning, but do not try to force what you do. You will find some stiffness and weakness with hip flexion (lifting your knee). Do not try to strengthen this too early, continue to practice walking and stairs and this will come. - Outpatient physical therapy can be helpful to help return you to a normal gait and improve your flexibility and strength. This can start around 2 weeks. For some patients, it?s not necessary. Usually this is determined at the time of discharge or at the first post-operative visit. - You should wear the DEVON hose on both legs for 2 weeks. Dressing: Keep the surgical dressing in place for at least one week. After the first week it may be removed and replace with light gauze and tape or nothing. It may get wet after 3 days but avoid soaking the dressing. If it gets wet, just lightly pat dry. It is important to always keep some gauze between skin folds, especially when you are sitting. Spend some time with the wound exposed when you are lying flat as the incision does wrinkle onto itself. Medications: - You should take Tylenol and an anti-inflammatory Celebrex as your primary pain control medications. If the Celebrex is too expensive or not covered, please call the office for another alternative (Advil/Ibuprofen or Naproxen/Aleve). - You have been prescribed a stronger pain medication Oxycodone for breakthrough pain, take as needed as prescribed. - You have also been prescribed a stomach acid reduction agent Pantoprozole to help reduce stomach acid and reflux. - You have also been prescribed Decadron to help with post-operative nausea and pain. You will take this for two days starting tomorrow. - You will be taking Aspirin 81mg twice a day for DVT prevention unless instructed otherwise. - If you have constipation you should take Colace (which was prescribed) or Miralax (which is available [id number]). It takes most people 3-4 days to have a bowel movement. Follow-up: 2 weeks If you have any acute concerns or questions, please do not hesitate to contact the office at [phone]. You may contact Dr. Levy with any questions after hours through the hospital at [phone] or on his cell phone at [phone]. Stand Alone Forms: Anesthesia Discharge Inst., Travis Barry ([facility]) Referrals: Jose De Jesus Levy MD [ [facility] STAFF PHYSICIAN] - Equipment/Supplies: Walker Activity:: Elevate Remove Dressings/Wound Care:: Do Not Remove Shower/Bathe:: Cover Diet:: As Tolerated Discharge Orders Discharge Orders: Discharge Order (Routine); Ordered 02/16/23 Ordered By: Jose De Jesus Levy DS: Summary Time Spent with Patient providing and/or coordinating discharge services: Less than 30 minutes Status at Discharge Functional status at discharge: uses cane/walker Overall status at discharge: patient is progressing back to baseline Mental Status: mental status grossly normal Speech and Movement: speech and movement normal Mood: congruent mood Affect: normal affect Exam Psych Mental Status: mental status grossly normal Speech and Movement: speech and movement normal Mood: congruent mood Affect: normal affect DS: Data Vitals/I&O Vitals and I&O: Vital Signs Temperature 97.5 F L 02/16/23 06:31 Pulse 92 H 02/16/23 06:31 Pulse Rhythm Regular 02/16/23 06:31 Respiratory Rate 18 02/16/23 06:31 Respiratory Depth Normal 02/16/23 06:31 Blood Pressure 126/74 02/16/23 06:31 Pulse Oximetry 98 02/16/23 06:31 Oxygen Delivery Method Room Air 02/16/23 06:31 Oxygen Flow Rate 0 02/16/23 06:31 Pain Level 5 02/16/23 06:31 Intake & Output 02/15/23 02/15/23 02/16/23 11:59 23:59 11:59 Weight 211 lb 211 lb 6.773 oz PFSH All Active Problems Diverticulitis large intestine (Acute) 11/2021-dx by CT, treated at [facility] CVA (cerebral vascular accident) (Chronic) Degenerative joint disease of left hip (Acute) Degenerative joint disease of right hip (Acute) Hernia (Chronic) Impacted cerumen, right ear (Acute) Conductive hearing loss, external ear (Acute) Sleep trouble (Acute) Screening for colon cancer (Acute) Aphasia as late effect of cerebrovascular accident (Acute ~06/2022) Primary osteoarthritis of right knee (Acute) Primary osteoarthritis of left knee (Acute) Medical History Abnormal chest CT 03/2021- repeat in 6 months 09/2021- no change repeat 1 year Bilateral inguinal hernia, without obstruction or gangrene, not specified as recurrent (04/09/16) Bladder cancer 2016 Bladder tumor (12/17/16) DR. 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, non invasive, multiple sites Osteoarthritis Parapelvic renal cyst 04/2021 by US Prediabetes Renal mass 03/2021- noted on CT- US recommended and ordered 05/12- parapelvic cyst Tobacco dependence 01/2022, 11/24 ppd, hx of about 40 pk yr Surgical History (Updated 02/16/23 @ 06:30 by Bonnie Almaguer) Hx of colonoscopy Hx of cystoscopy Hx of foot surgery Hx of transurethral resection of prostate Social History Smoking/Tobacco Use Status: Current every day Tobacco Type: cigarettes Tobacco: How many years used: 30 Quit status: has quit before Second Hand Exposure: Yes Smoking risk assessment performed?: Yes Alcohol Intake: current Alcohol Intake frequency: holidays/special occasions only Alcohol type: beer Drug use: Never Substance use type: does not use Details: alcohol: t-120 Household members: family Housing: house Communication Needs: None Pets and animals: Yes Pets and animals: dog(s) Sexually active: No Do you think of yourself as: straight/heterosexual Current gender identity: male What is your relationship status?: How often do you talk on the phone with friends or family?: decline to answer How often do you get together with friends or relatives?: decline to answer How often do you attend anabaptism or pentecostal services?: decline to answer Do you belong to any clubs or organized social groups?: no Panel score (0-1 are the most socially isolated patients): 1 Ivon/Zoroastrian: No preference Special ivon needs: No Seatbelt use: always Helmet use: No Drive 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
[2023-02-16] MEDS: ceFAZolin 2 GM/50 ML BAG IVPB (07:29)
--- NOTE | 2023-02-16 08:30 | DI.RAD_ITS ---
Exam(s) XR HIP LT IN OR EXAM: XR HIP LT IN OR CLINICAL HISTORY: left total hip TECHNIQUE: 2D and realtime digital imaging was performed. CONTRAST MATERIAL: Refer to procedure report. COMPARISON: CR XR PELVIS AP from 12/21/2022 FINDINGS: Fluoroscopy was provided for Dr. Levy during the performance of a left total hip arthroplasty. Please refer to the procedure report for complete details. Ka,r=3.56 mGy IMPRESSION: RADIATION DOSE DELIVERED:
--- NOTE | 2023-02-16 09:18 | W.PM.OP ---
Date of service: 02/16/23 Time of Service: 08:50 Operative Note Operative Note DATE OF PROCEDURE: 02/16/23 PRE-OP DIAGNOSIS: Left Hip Osteoarthritis POST-OP DIAGNOSIS: same PROCEDURE: Left Anterior Total Hip Arthroplasty with Intraoperative Navigation SURGEON: Jose De Jesus Levy DISCHARGE RN: Christie Bliss ANESTHESIA TYPE: Spinal Refer to Anesthesia Record ESTIMATED BLOOD LOSS: 100 PATHOLOGY: none sent TOURNIQUET TIME: 0 COMPLICATIONS: None Patient was transported to: PACU Patient's condition: stable Implants: 1. Depuy [place] Acetabular Component, 58mm 2. Depuy Acetabular Liner, [id number] 3. Depuy Corail High Offset Collared Femoral Stem, Size 13 4. Depuy Altrx Ceramic Femoral Head, Size 36+5mm Indications: I have seen Francisco Javier in clinic for symptoms of hip arthritis, confirmed with radiographic findings. Francisco Javier has exhausted nonoperative methods and was having significant limitations in daily function and desired better function and less pain. I discussed the technical details of a hip replacement. I explained the risks of the procedure to include, but not limited to, bleeding, infection, pain, stiffness, fracture, damage to nerves and vessels, damage to muscles and tendons, loosening, instability, leg length inequality, need for repeat procedure, blood clot and cardiopulmonary demise. Despite these risks, Francisco Javier elected to proceed. Findings: There was significant signs of arthritis throughout the hip along with notable synovitis. Procedure Description: Francisco Javier was greeted in the preoperative holding area where the correct side was identified and marked. The consent was reviewed with the patient and signed. The history and physical was updated. All questions were answered. He was taken back to the operating room. A spinal anesthestic was then administered. The feet were wrapped with cast padding and Coban and then placed into the boot liners and then into the boots. Care was taken to protect the skin and make sure the heels were fully down and the boots were stable. The patient was then positioned onto the HANA table. Both legs were held in a neutral position. SCDs were applied. The patient was then slid down onto a peroneal post. Prophylactic antibiotics in the form of Cefazolin were administered. 1g of Tranxemic Acid was given intravenously within 30 minutes of incision. The left leg was then prepped with Chloraprep and draped in a standard fashion. A second prep with Chloraprep was performed prior to placement of a shower-curtain type drape with Iodine impregnated skin protection. A timeout to confirm correct identity, side and site, procedure, allergies, anesthesia, and medical concerns was performed. An obliquely oriented incision was made starting lateral to the ASIS and running distal over the Tensor Fascia Aixa (TFL) muscle belly toward the fibular head, approximately 10cm. The skin and soft tissue was dissected sharply, through Karen?s fascia, and to the fascia of the TFL. With the fascia and superior border of the IT band identified, the fascia was incised with a new knife just above any perforators from the IT band. The TFL muscle belly was bluntly dissected away from the fascia and moved laterally. The fat between TFL and rectus was identified to ensure the dissection was not within the TFL. Blunt dissection created space between abductors and the capsule and retractor was placed over the lateral femoral neck. The fibers of the rectus femoris tendon were identified and these were freed from the anterior capsule. A second cobra retractor was placed around the medial femoral neck. The TFL was further retracted laterally to show the deep fascia. Careful dissection through this layer identified three main crossing vessels of the lateral femoral circumflex. These were cauterized in multiple locations and then cut without any noticeable bleeding. The TFL was further released bluntly from the deep fascia to expose anterior hip capsule and fat The Romulo orthopaedic retractor was then placed beneath the TFL and against sartorius and medial soft tissues to protect and retract the soft tissues. A T-capsulotomy was then performed starting at the superior lateral acetabulum and moving distally to the intertrochanteric ridge. These capsular flaps were tagged with a No. 1 Ethibond and elevated from within. The capsular flaps were released to the shoulder of the lateral neck and to the lesser trochanter to give excellent visualization of the proximal femur. A neck osteotomy was performed using an oscillating saw based on preoperative templates. This cut started in the shoulder and of the lateral neck and exited medially. The saw was at all times directed medially to avoid injury to the greater trochanter. Gross traction was applied to the leg and the osteotomy opened. The femoral head was removed with a corkscrew, making sure to protect the TFL on its exit. Traction was released after head removal. This was measured on the back table to determine the starting reamer size. Portions of the rectus obscuring visualization were minimally elevated off the superior acetabulum. An anterior retractor was placed over the anterior wall between capsule and labrum and attached to the Gripper retraction system. The femur was rotated to 90 degrees and medial capsule was fully released until the lesser trochanter was palpable and visible; the femur was returned to 30 degrees. A posterior retractor was placed similarly between capsule and labrum. This provided excellent visualization. The contents of the cotyloid fossa were removed with electrocautery and the labrum was removed with a knife. There was a notable floor osteophyte. There was significant chondromalacia of the superior acetabulum. Acetabular reaming began with a 52mm reamer. This first reaming was directed anterior to posterior and medial to get down to the true floor. This was inspected and reamed until the true floor was reached. The anterior retractor was then released and entry and exit was provided by traction on the capsular flaps. I then reamed sequentially up to a 58mm reamer where good fit was obtained. The larger reamers were oriented based on anatomical reference of the anterior and lateral cary to ensure proper abduction and anteversion. Positioning and size was confirmed with the fluoroscopy. A 58mm Depuy [place] acetabular component was selected. The acetabulum was reamed around the periphery with the selected acetabular size to prevent a rim fit. The deep tissues were irrigated. The acetabular component was then impacted in a position of about 40-45 degrees of abduction and 15-20 degrees of anteversion, using the patient?s anatomy as the ultimate landmark. Fluoroscopy was used to confirm this. There was excellent competency evaluated nurse aide of the acetabular component and the inserting handle was removed. The acetabular liner, Depuy [id number] polyethylene liner, was inserted and lined up with the tines of the acetabular component. There was no soft tissue interposition. The liner was then impacted into position and confirmed to be well-seated. A portion of the amanda-articular cocktail was then injected around the acetabulum into the capsule and periosteum. This cocktail consisted of 123mg of Ropivacaine, 0.25mg of Epinephrine, 0.04mg of Clonidine, and 15mg of Ketorolac, diluted to 50cc. The leg was rotated to 120 degrees. Any remaining medial capsule was released until the lesser trochanter was easily palpable. A retractor was placed medially. The lateral capsule was further released into the shoulder to allow access to the greater trochanter. A Pond retractor was placed over the greater trochanter which allowed the trochanter to flip in front of the capsule for excellent exposure. The leg was brought down into maximal extension and 20 degrees of adduction while ensuring there was no impingement on the acetabulum. Any remnant capsule within the trochanter was released. Piriformis and obturator externis were identified and protected. There was excellent access to the proximal femur. The lateral neck remnant was removed with a rongeur. A blunt canal probe was used to identify the canal and trajectory for later broaching. A box osteotome initiated the broach course. A small curved rasp and a curved curette were used to work laterally. Broaching then began with a size 8 Corail broach. This was inserted manually around the trochanter and into the canal before mallet blows. The broach was seated to a few millimeters below the cut level based on the neck cut and the preoperative template. Sequential broaching was continued with the [employer] pneumatic broaching device until a tight fit was obtained with good rotational control of the femur. A trial high offset neck was inserted along with a +1.5 trial head. The leg was brought out of extension and adduction and then reduced with traction and internal rotation. The leg was stable anteriorly in a position of 30 degrees of extension and 90 degrees of external rotation. Fluoroscopy was used to ensure there was no fracture and the stem was seated well. Leg lengths were checked with an AP pelvis and pelvic reference points. Tactilize navigation system was used to confirm appropriate positioning and leg length and offset. Going to a +5mm head would improve offset to normal and leg length to +4 as per plan. Once content with the desired offset and leg lengths, the leg was brought back into extension, external rotation and adduction. The periosteum and surrounding tissue was injected with remaining portion of the amanda-articular cocktail. The proximal femur was irrigated as well as the deep tissues. The Depuy [place] High Offset collared stem, size 13, was then manually inserted into the proximal femur making sure to control rotation. It was then malleted into position with light blows, giving breaks to allow bone expansion and decrease risk of fracture. The selected Depuy Altrx Ceramic Head, size 36+5mm, was then placed onto the clean and dry trunnion and secured with impaction onto the tapered fit. The leg was brought back out of extension and adduction and reduced with traction and internal rotation. Stability was confirmed with no shuck at 90 degrees of external rotation and 30 degrees of extension. No impingement through range of motion arc. Final x-ray images were obtained with fluoroscopy to confirm adequate positioning and no intraoperative fracture. The deep tissues were thoroughly irrigated with Surgiphor, betadine solution. This was allowed to sit in the wound for 3 minutes before being thoroughly irrigated out with normal saline. The capsule was then reapproximated with the previously placed Ethibond sutures. The TFL fascia was finally closed with a No. 2 Stratafix, barbed suture. Deep tissues were then reapproximated with 0 Vicryl and a running 2-0 Vicryl. The skin was closed with a running 4-0 Monocryl in a subcuticular fashion. This was reinforced with skin glue. A Mepilex silver dressing was applied. At the end of the case, all counts were correct. Francisco Javier was transferred to the hospital bed without difficulty and suffering no apparent complication. Francisco Javier has a good prognosis. Physical therapy will start today and without restrictions, weight-bearing as tolerated. Aspirin 81mg BID will be used for DVT prophylaxis.
--- NOTE | 2023-02-16 10:39 | W.ANESPOSTOP ---
Postoperative Evaluation Date, Time and Location Date Performed: 02/16/23 Time Performed: 10:35 Patient Location: Day Surgery Unit Vital Signs Most Recent Imported Vital Signs: Most Recent Vital Signs Temp Pulse Resp BP Pulse Ox 36.3 C L 95 H 20 135/89 96 02/16/23 09:53 02/16/23 09:53 02/16/23 09:53 02/16/23 09:53 02/16/23 09:53 Pain Score Most Recent Pain Score: Most Recent Pain Score Pain Level 1 02/16/23 09:53 Assessment Mental Status: Awake (Alert & Oriented to Patient Baseline) Airway and Respiratory Function: Patent airway with normal (patient baseline) respiratory exam Cardiovascular Function: Hemodynamically Stable Hydration Status: Adequately Hydrated Nausea & Vomiting: No Nausea or Vomiting Pain: Pain is tolerable per patient Peripheral Nerve Block: Patient did not receive a nerve block
--- NOTE | 2023-02-16 12:54 | IN_ITS ---
Date of service: 02/16/23 Time of Service: 10:30 PT Notes Visit Reasons: Left hip DJD Physical Therapy Day Surgery Initial Evaluation Date: 02/16/2023 Referring Doctor: BANDAR Cid and PT Orders: PT CONSULT: S/P Ortho surgery Precautions: WBAT on left LE with AD. Expressive aphasia. Patient Profile/Admitting Diagnosis: Yonatan is a 80-year-old male with degenerative joint disease of the left hip and status post left total hip arthroplasty on postoperative day 0. PMHX: All Active Problems?(Updated 02/08/23 @ 15:04 by BANDAR Moser) Primary osteoarthritis of left knee (Acute) Primary osteoarthritis of right knee (Acute) Aphasia as late effect of cerebrovascular accident (Acute ~06/2022) Screening for colon cancer (Acute) Sleep trouble (Acute) Conductive hearing loss, external ear (Acute) Impacted cerumen, right ear (Acute) Hernia (Chronic) Degenerative joint disease of right hip (Acute) Degenerative joint disease of left hip (Acute) CVA (cerebral vascular accident) (Chronic) Diverticulitis large intestine (Acute) 11/2021-dx by CT, treated at [facility] Medical History? Abnormal chest CT 03/2021- repeat in 6 months 09/2021- no change repeat 1 year Bilateral inguinal hernia, without obstruction or gangrene, not specified as recurrent (04/09/16) Bladder cancer 2016 Bladder tumor (12/17/16) DR. 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 Hx of cystoscopy Hx of foot surgery Hx of transurethral resection of prostate Social History/Home Situation: Lives with in a private home with 3 steps to enter without rails. Independent with all mobility ADL performance without an assistive device prior to surgery. Falls within the last 12 months. Equipment Owned/DME: None Subjective: Per nurse Gail and Brianna patient's ability to express self has been impaired with previous CVA. able to assist with interpreting 's responses. Reports minimal pain in the left hip with weightbearing. Objective: General Observation: Supine in bed. Mepilex Ag over surgical incision. TEDS to B legs. Cold pack over left hip surgical incision Mental Status: Alert and oriented x 4, pre-existing expressive aphasia limits accuracy of responses but is able to interpret as needed Pain: Minimal pain in the left hip with weightbearing ROM: Right Lower Extremity: Hip flexion WFL. Hip abduction WFL. Knee flexion WFL. Ankle dorsiflexion WFL. Ankle plantarflexion WFL. Left Lower Extremity: Hip flexion lacks the last 25% of available range of motion due to discomfort. Hip abduction WFL. Knee flexion WFL. Ankle dorsiflexion WFL. Ankle plantarflexion WFL. Strength: Right Lower Extremity: Hip flexors 5/5. Hip abductors 5/5. Knee flexors 5/5. Knee extensors 5/5. Ankle dorsiflexors 5/5. Ankle plantarflexors 5/5. Left Lower Extremity:Hip flexors 3-/5. Hip abductors 4-/5. Knee flexors 5/5. Knee extensors 4-/5. Ankle dorsiflexors 5/5. Ankle plantarflexors 5/5. Sensation: Intact as to pain and light touch in BLE Bed Mobility/Transfers: Supine to sit standby assist Sit to stand standby assist Stand to sit standby assist Bed to chair standby assist Gait: Negotiated 150 feet of level surface ambulation using front wheeled walker with step to gait pattern requiring minimal verbal cueing for correct technique and overall safety. Denies increase in pain report, ache, chest pain, and lightheadedness throughout activity. No LOB. No SOB. Balance: Static Sitting: Normal Dynamic Sitting: Normal Static Standing: Fair Dynamic Standing: Fair Special Tests: Mobility Limitations Standardized Measure [facility] AM-PAC 6 clicks Basic Mobility Inpatient Short Form: Raw Score: 22 CMS Score: 21% deficit Informed Consent/Education: Patient instructed in purpose of PT consult. Packet containing BRITT exercise protocol has been given to patient. Education and training on initial set of exercises that can be done at home have been completed with patient. THERA EX: Supine gluteal sets x 5 Supine helle slides x 5 Supine ankle DF/PF x 5 Seated marches x 5 BIlateral LAQs x 5 Assessment: Patient requires the use of a front-wheeled walker to maximize independence and reduce fall risk. Can be impulsive and will require supervision for safety. Patient presents with clinical signs and symptoms consistent with current/admitting diagnoses that have resulted to mobility limitations, gait instability, generalized weakness, and impairment of motor control as demonstrated by the following impairment level findings: 1. Decreased strength to left hip major muscle groups 2. Impaired standing balance 3. Limitation of joint range of motion in left hip Impairments are contributing to the following functional limitations: 1. Inability to safely ambulate without assistive device 2. Increase completion time for mobility ADL performance 3. Increased fall risk Patient is assessed as a 07644 moderate complexity based on the following: History: 72-year-old male with impairment level findings, functional limitations, and past medical history as indicated above Examination: Demonstrable impairment in strength, balance, and mobility level with underlying impairments and functional limitations as documented above Presentation: Evolving Decision Makin moderate complexity Goals: N/A. PT evaluation and 1-2 treatment sessions only for functional mobility training using recommended AD and for HEP instruction. Plan of Care/Treatment Plan: N/A. PT evaluation and 1-2 treatment session only for functional mobility training using recommended AD and for HEP instruction. DISCHARGE RECOMMENDATIONS: Home when medically cleared by orthopedic surgeon. Recommend outpatient PT services in to optimize functional mobility outcomes and facilitate return to independent community ambulation without an assistive device. TREATMENT CODE/TIME: 02746 x 20 minutes, 04791 x 14 minutes beginning at 10:30 AM. Thank you for the opportunity to participate in the care of this patient. Luisa Emanuel PT, DPT, CLT [facility] [place], [place]
== END 2023-02-16 12:16 | disposition home or self-care (01) ==
PROVIDERS: PCP Family Medicine; Visit Provider Student in an Organized Health Care Education/Training Program
PROC: (CPT 27130; principal; 2023-02-16 07:30)
DX: M16.12 Unilateral primary osteoarthritis, left hip (principal)
CPT/HCPCS: 20985; 27130; C1776; 97162; 97530; 73501; J0690; J2250; J2405

== ENCOUNTER → 2023-03-01 13:20 | Outpatient (BNVA) | payer MEDICARE, SELFPAY | PROVIDERS: PCP Family Medicine; Referring Provider Family Medicine; Visit Provider Student in an Organized Health Care Education/Training Program | DX: Z47.1 Aftercare following joint replacement surgery (principal); Z96.642 Presence of left artificial hip joint ==

== ENCOUNTER 2023-03-01 14:07 | Outpatient (CLI) | payer MEDICARE, SELFPAY ==
--- NOTE | 2023-03-01 13:15 | DI.RAD_ITS ---
Exam(s) XR HIP LT COMPLETE AP PELVIS EXAM: XR HIP LT COMPLETE AP PELVIS CLINICAL HISTORY: 1st post op L BRITT. TECHNIQUE: 2D digital imaging was performed. Three images were obtained. AP, lateral and oblique vi ews were obtained. COMPARISON: CR XR HIP LT COMPLETE AP PELVIS from 07/13/2022 CR XR PELVIS AP from 12/21/2022 XA XR HIP LT IN OR from 02/16/2023 FINDINGS: BONES: There are stable post operative changes present. No fracture or dislocation. Cysts are seen i n the acetabuli bilaterally. JOINTS: The orthopedic hardware is in good position. No evidence of hardware loosening. SOFT TISSUE: Atherosclerosis is present. IMPRESSION: Stable postoperative changes. DATA REPOSITORY: RADIATION DOSE DELIVERED:
== END 2023-03-01 14:08 | disposition home or self-care (01) ==
LOC: DIORS 14:07
PROVIDERS: PCP Family Medicine; Referring Provider Family Medicine; Visit Provider Student in an Organized Health Care Education/Training Program
DX: Z96.642 Presence of left artificial hip joint (principal); Z47.1 Aftercare following joint replacement surgery
CPT/HCPCS: 73502

== ENCOUNTER → 2023-03-29 13:39 | Outpatient (BNVA) | payer MEDICARE, SELFPAY | PROVIDERS: PCP Family Medicine; Referring Provider Family Medicine; Visit Provider Student in an Organized Health Care Education/Training Program | DX: Z47.1 Aftercare following joint replacement surgery (principal); Z96.642 Presence of left artificial hip joint ==

== ENCOUNTER → 2023-05-14 12:53 | Outpatient (BNVA) | payer MEDICARE, SELFPAY | PROVIDERS: PCP Family Medicine; Visit Provider Urology | DX: Z08 Encounter for follow-up examination after completed treatment for malignant neoplasm (principal); Z85.51 Personal history of malignant neoplasm of bladder | CPT/HCPCS: 52000; 81003 ==

== ENCOUNTER 2023-05-17 03:05 | Outpatient (CLI) | payer MEDICARE, SELFPAY ==
[2023-05-17 11:07] LABS: Hemoglobin A1C 5.5 % (<5.7)
[2023-05-17 11:51] LABS: Vitamin B12 1107 pg/mL (193-986)
[2023-05-17 17:18] LABS: CRP, High Sensitivity 1.72 mg/L (See Note)
[2023-05-19 09:05] LABS: Homocysteine 10.2 umol/L (5.0-13.9)
== END 2023-05-17 03:06 | disposition home or self-care (01) ==
PROVIDERS: PCP Family Medicine; Visit Provider Family Medicine
DX: E11.51 Type 2 diabetes mellitus with diabetic peripheral angiopathy without gangrene (principal); I63.9 Cerebral infarction, unspecified; D64.9 Anemia, unspecified
CPT/HCPCS: 36415; 82306; 83090; 86141; 82607; 83036

== ENCOUNTER → 2023-12-01 10:23 | Outpatient (BNVA) | payer MEDICARE, SELFPAY | PROVIDERS: PCP Family Medicine; Referring Provider Family Medicine; Visit Provider Surgery | DX: K46.9 Unspecified abdominal hernia without obstruction or gangrene (principal) | CPT/HCPCS: 99215 ==

== ENCOUNTER 2024-01-28 06:04 | Day surgery (SDC) | payer MEDICARE, SELFPAY ==
--- NOTE | 2024-01-27 17:15 | HPE_ITS ---
Assessment and Plan Assessment and plan (1) Bilateral inguinal hernia: Status: Acute Assessment and plan: We reviewed the plan for open inguinal hernia repairs today. I think he has a good understanding of it, and had no new questions since our last encounter. History of Present Illness History of Present Illness Chief Complaint: Bilateral inguinal hernias Narrative: Yonatan is a 73-year-old male who is referred for a right-sided inguinal hernia. On exam, he actually has bilateral inguinal hernias. Both are quite sizable, and causing a fair amount of discomfort. He is interested in elective inguinal hernia repair. PFSH All Active Problems Bilateral inguinal hernia (Acute) Callus of foot (Acute) Foot drop, right foot (Chronic) per patient congenital; has h/o AFO use. Callus. Hx of ischemic left MCA stroke (Acute ~06/2022) seen at [facility]; managed as an outpatient History of total left hip arthroplasty (Acute 02/16/23) Primary osteoarthritis of left knee (Acute) Primary osteoarthritis of right knee (Acute) Aphasia as late effect of cerebrovascular accident (Chronic ~06/2022) Sleep trouble (Acute) Conductive hearing loss, external ear (Acute) Impacted cerumen, right ear (Acute) Hernia (Chronic) Degenerative joint disease of right hip (Acute) Tobacco dependence (Acute) 01/2022, 11/24 ppd, hx of about 40 pk yr Medical History Hx of diverticulitis of colon (~11/2021) Elevated rheumatoid factor Hyperglycemia [id number]/[id number] Edema Prediabetes Osteoarthritis Parapelvic renal cyst 04/2021 by US Renal mass 03/2021- noted on CT- US recommended and ordered 05/12- parapelvic cyst Abnormal chest CT 03/2021- repeat in 6 months 09/2021- no change repeat 1 year 12/2021 - stable appearance, moderate central lobular emphysematous changes with apical blebs 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, noninvasive urothelial cell carcinoma Surgical History Hx of colonoscopy Hx of cystoscopy Hx of transurethral resection of prostate Hx of foot surgery Social History Smoking/Tobacco Use Status: Current every day Tobacco Type: cigarettes Tobacco: How many years used: 30 Quit status: considering quitting Second Hand Exposure: Yes Smoking risk assessment performed?: Yes Alcohol Intake: former Drug use: Never Substance use type: does not use Household members: family Housing: house Communication Needs: None Pets and animals: Yes Pets and animals: dog(s) Sexually active: Yes Do you think of yourself as: straight/heterosexual Current gender identity: male What is your relationship status?: How often do you talk on the phone with friends or family?: never How often do you get together with friends or relatives?: once per week How often do you attend congregational or mu-ism services?: decline to answer Do you belong to any clubs or organized social groups?: no Panel score (0-1 are the most socially isolated patients): 1 Ivon/Caodaism: No preference Special ivon needs: No Seatbelt use: always Helmet use: No 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 Additional Social history: unable to assess privately Meds Allergies and Home Medications Allergies Allergy/AdvReac Type Severity Reaction Status Date / Time No Known Allergies Allergy Verified 01/28/24 06:44 Home Medications Medication Instructions Recorded Confirmed Type rosuvastatin 20 mg tablet 20 mg PO DAILY #90 tabs 05/05/23 01/25/24 Rx aspirin 81 mg tablet,delayed 81 mg PO DAILY 07/28/23 01/28/24 History release omega-3s 350 ba-bla-bun-other 1 cap PO DAILY 12/01/23 01/28/24 History [id number] oil 600 mg capsule (Fish Oil) Exam Const General: cooperative and not in acute distress Neck Neck: normal visual inspection, no lymphadenopathy and supple Thyroid: thyroid normal Resp Effort & Inspection: normal respiratory effort Auscultation: clear to auscultation bilaterally Cardio Jugular venous pressure: no JVD Rate: regular rate Rhythm: regular rhythm Heart Sounds: S1 normal and S2 normal GI Inspection: normal to inspection Palpation: soft, no guarding, hernia (Bilateral reducible) and nontender Percussion: normal to percussion Auscultation: normal bowel sounds Neuro General: patient alert, patient awake and patient oriented x3 Psych Appearance: grossly normal
--- NOTE | 2024-01-27 17:17 | W.PM.OP ---
Date of service: 01/28/24 Time of Service: 09:43 Operative Note Operative Note DATE OF PROCEDURE: 01/28/24 PRE-OP DIAGNOSIS: Bilateral inguinal hernias POST-OP DIAGNOSIS: other (Right-sided direct inguinal hernia, left-sided combined direct and indirect hernias) PROCEDURE: Open bilateral inguinal herniorrhaphy with mesh SURGEON: Zackary Meza [employer] INSIDE: Chantal Booker ANESTHESIA TYPE: Local By Surgeon, General LMA/ETT and Other (Bilateral inguinal tap blocks) Refer to Anesthesia Record ESTIMATED BLOOD LOSS: 25 PATHOLOGY: none sent COMPLICATIONS: None Patient was transported to: PACU Patient's condition: stable Implants: Extra-large Bard PerFix light plug and patch on the right side, large Bard PerFix light plug and patch on the left side Indications: Francisco Javier is a 73-year-old male with an enlarging and occasionally painful right-sided inguinal hernia. He has a left-sided inguinal hernia as well. He seems to have increased in size compared to his previous CT scan Findings: Right-sided direct inguinal hernia, left-sided combined direct and indirect inguinal hernia Procedure Description: I began by confirming the bilateral hernias with the patient. Next, general endotracheal anesthesia was induced, and the anesthesia team performed bilateral Inguinal blocks with real-time ultrasound guidance. The surgical sites were then prepped and draped in the usual fashion. The left side was covered with surgical towel. I began by making an oblique incision over the right inguinal region. I dissected down through the skin to the deep fascia. Next, I incised the fascia along the length of the inguinal canal to the external ring. The fascia was quite attenuated and weak. Once this was complete, I bluntly dissected the shelving edge of the inguinal ligament down towards the pubic tubercle. The hernia sac was then tediously dissected. It was carefully from the cord structures, which were retracted and protected with the Pippa drain. With the dissection complete, it was obvious that this was a direct inguinal hernia. An extra-large mesh plug was used to reduce the hernia contents back into the peritoneal space. It was affixed to the tissue with a [id number] Prolene suture. Next, I recreated the posterior floor of the inguinal canal with a large mesh patch. I started by fixing it to the pubic tubercle. Next, I used Prolene sutures to affix it to the shelving edge of the inguinal ligament and the conjoined tendon. Laterally I tacked it to the external oblique fascia and reconstructed an internal ring without any strain on the cord structures. Once this was complete, I irrigated the surgical field. It appeared hemostatic. I then closed the anterior portion of the fascia to reconstruct the front wall of the inguinal canal. I did this with interrupted Vicryl stitches. Once again, I irrigated the surgical field and inspected for hemostasis. Finally, I approximated the superficial fascia and the deep layers of the skin with absorbable suture. Skin was closed with running subcuticular stitches. Bandages were applied, the patient was awakened and transferred to the recovery unit. The right side was covered with surgical towel, I turned my attention to the left side. I made a complementary incision on the left inguinal region in an oblique fashion, and dissected out the inguinal canal as described on the right. Similar to the right side, the fascial layer was weak, with difficult to identify structure. Regardless, the fascia was excised along the length of the canal opening the external ring. Again, the cord structures were carefully dissected up and away from the shelving edge of the inguinal ligament. It a fashion similar to the right side, I encircled the cord structures with a Pippa drain as I dissected away the hernia sacs. Here, there was a small indirect inguinal component. This was dissected back up towards the inguinal ring, and reduced into the peritoneal space. Similar to the right side, the indirect component was also carefully dissected free and reduced back into place. A large mesh plug was used to obliterate the internal ring, and a large mesh patch was then contoured to recreate the floor of the inguinal canal as well as the deep ring. Great care was taken to ensure that there was no stress at the cord structures at the internal ring on the right and left sides. The left side was affixed in place identical to the right side. Overlying tissues were then irrigated, and the external fascia was reconstructed as best I could with Vicryl stitches. Deep skin and soft tissues were reapproximated with Vicryl stitches, and the skin was closed with a running subcuticular stitch again identical to the right side. Bandages were placed, and the patient was allowed awaken from anesthesia and transferred to the recovery unit.
--- NOTE | 2024-01-27 17:18 | W.PM.DSUDISC ---
Date of service: 01/28/24 Time of Service: 09:51 Discharge Plan Disposition Patient Disposition: Home Condition: Good Discharge Details Reason For Visit: Bilateral inguinal herniorrhaphy with mesh Attending Provider: Zackary Meza Primary Care Provider: Jj Chacon Home Meds and New Rx's Prescriptions: New tramadol 50 mg tablet 50 mg PO Q8H PRNQty: 15 0RF Rx Instructions: Take 1 tablet by mouth up to every 8 hours if needed for severe pain. Continued rosuvastatin 20 mg tablet 20 mg PO DAILY Qty: 90 3RF Patient Comments: Pt reports on HOLD aspirin 81 mg tablet,delayed release (DR/EC) 81 mg PO DAILY Fish Oil 350-600 mg capsule 1 cap PO DAILY Discharge Instructions Instructions: Inguinal Hernia Repair (GEN) Additional Instructions: Francisco Javier, we were able to repair your hernia today on both the right and left sides just like we talked about. Hopefully it was relatively comfortable for you. Although the tissue was a little bit challenging to work with, I was able to get the permanent mesh is to affixed in as we planned. I am optimistic that this will help prevent any recurrence in the future. Expect to have some increasing pain over the next few days as some of the nerve block wears off. You may also experience a fair amount of bruising that may even track down into your scrotum. Please do not be alarmed if that happens it is quite common. I would like to know if the skin starts turning bright red or there is any discharge from the wounds. I have provided a prescription for a medication called tramadol that will help if Tylenol and ibuprofen are not enough to control your pain. Please be very careful with your lifting in the weeks to come. Try to restrict it to 5 pounds or less. As we have talked about before, the more you can refrain from smoking and coughing, the better off your hernia repairs will be. Please feel free to call at any time if you have any questions, otherwise I look forward to seeing you in the office in follow-up 1. Resume all of your regular medications. 2. Use heating pads and ice packs as needed for pain 3. Okay to use tylenol and ibuprofen over the counter. Alternate them every 6 hours for the first 48 hours. Then use as needed. Use tramadol as needed for more severe pain. 4. Leave bandage in place for 24 hours, then remove. 5. Shower with warm soapy water. Pat dry. Use a bandaid if needed to protect your clothing. 6. No soaking or tub baths until I see you in the office. 7. No heavy lifting until I see you in the office. 8. Call the office (or go directly to the emergency room after hours) if you notice any of the following: Develop chills (warm to touch), or if you have a thermometer and your temperature is above 101 Difficulty breathing or difficultly swallowing Persistent vomiting Any bleeding ? exceeding one tablespoon 9. Call your physician if the site where your intravenous was started becomes red, swollen, painful, and warm to touch. Referrals: Zackary Meza MD [ [facility] STAFF PHYSICIAN] - (February 08) Activity:: No heavy lifting Remove Dressings/Wound Care:: 24 hours Shower/Bathe:: 24 hours Diet:: As Tolerated Discharge Orders Discharge Orders: Discharge Order (Routine); Ordered 01/27/24 Ordered By: Zackary Meza DS: Diagnosis Discharge Diagnosis (1) Bilateral inguinal hernia: Status: Acute Asessment and Plan: Outpatient postoperative follow-up on February 08
--- NOTE | 2024-01-27 18:31 | W.ANESPRE ---
General Info Date of Service Date Performed: 01/28/24 Height: 5 ft 10 in Weight: 97.069 kg Body Mass Index (BMI): 30.7 Surgical Procedure: Operation Date: 01/28/24 07:40 Proposed Procedure Side Surgeon p Open Bilateral Inguinal Hernia Repair with Mesh Bilateral Zackary Meza MD Meds Allergies and Home Medications Allergies Allergy/AdvReac Type Severity Reaction Status Date / Time No Known Allergies Allergy Verified 01/28/24 06:44 Home Medication Medication Instructions Recorded rosuvastatin 20 mg tablet 20 mg PO DAILY #90 tabs 05/05/23 aspirin 81 mg tablet,delayed 81 mg PO DAILY 07/28/23 release omega-3s 350 [id number] 1 cap PO DAILY 12/01/23 [id number] oil 600 mg capsule (Fish Oil) Current Visit Medications: Current Medications Generic Name Dose Route Start Last Admin Trade Name Freq PRN Reason Stop Dose Admin Acetaminophen 1,000 mg 01/28/24 06:00 Acetaminophen 500 Mg Tab PO 01/28/24 23:59 PREOP JOHNNY Gabapentin 300 mg 01/28/24 06:00 Gabapentin 300 Mg Cap PO 01/28/24 23:59 PREOP JOHNNY Hydromorphone HCl 0.2 mg 01/27/24 17:18 Hydromorphone 2 Mg/Ml Syr IVP 02/26/24 17:17 Q1H PRN PRN Ringer's Solution 1,000 mls @ 80 mls/hr 01/28/24 06:00 IV 01/28/24 23:59 INFUSION JOHNNY Cefazolin Sodium/Dextrose 2 gm in 50 mls @ 100 mls/hr 01/28/24 06:00 Ancef Duplex IVPB 01/28/24 23:59 PREOP JOHNNY IV Miscellaneous Supplies 1 each 01/28/24 06:00 Iv Access IV 01/28/24 23:59 DIRECTED JOHNNY Sodium Chloride 0 ml 01/28/24 06:00 Normal Saline Flush 10 Ml Syr IV 01/28/24 23:59 PRN PRN Sodium Chloride 0 ml 01/28/24 06:00 Normal Saline 10 Ml Vial IJ 01/28/24 23:59 DIRECTED PRN Sterile Water 0 ml 01/28/24 06:00 Water,Injection,Sterile 10 Ml Vial IJ 01/28/24 23:59 DIRECTED PRN Tramadol HCl 100 mg 01/27/24 17:18 Tramadol 50 Mg Tab PO 02/26/24 17:17 Q6H PRN PRN Pain PFSH Active Problems Active Problems: Problem Status Onset Code Bilateral inguinal hernia K40.20 Callus of foot L84 Foot drop, right foot M21.371 Hx of ischemic left MCA stroke ~06/2022 Z86.73 History of total left hip arthroplasty 02/16/23 Z96.642 Primary osteoarthritis of left knee M17.12 Primary osteoarthritis of right knee M17.11 Aphasia as late effect of cerebrovascular accident ~06/2022 I69.320 Sleep trouble G47.9 Conductive hearing loss, external ear H90.2 Impacted cerumen, right ear H61.21 Hernia K46.9 Degenerative joint disease of right hip M16.11 Tobacco dependence F17.200 Medical History Medical History Hx of diverticulitis of colon (~11/2021) Elevated rheumatoid factor Hyperglycemia [id number] Edema Prediabetes Osteoarthritis Parapelvic renal cyst 04/2021 by US Renal mass 03/2021- noted on CT- US recommended and ordered 05/12- parapelvic cyst Abnormal chest CT 03/2021- repeat in 6 months 09/2021- no change repeat 1 year 12/2021 - stable appearance, moderate central lobular emphysematous changes with apical blebs Malignant neoplasm of overlapping sites of bladder (07/15/16) paillary urothelial, non invasive, multiple sites Bilateral inguinal hernia, without obstruction or gangrene, not specified as recurrent (04/09/16) Bladder cancer 2016; 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, noninvasive urothelial cell carcinoma Surgical History Surgical History Hx of colonoscopy Hx of cystoscopy Hx of transurethral resection of prostate Hx of foot surgery Tobacco Smoking/Tobacco Use Status: Current every day Tobacco Type: cigarettes Passive smoking exposure: Yes Second hand exposure: Yes Alcohol Alcohol Intake: former Substance Use Substance use: Never Substance use type: does not use Vital Signs and Lab Results Vital Signs Most Recent Vital Signs in EMR: Temp Pulse Resp BP Pulse Ox 36.5 C 63 16 121/71 95 01/28/24 06:20 01/28/24 06:20 01/28/24 06:20 01/28/24 06:20 01/28/24 06:20 Lab Results Blood Type / Crossmatch: No Data to Display Complete Blood Count: No Data to Display Complete Metabolic Panel: No Data to Display Liver Function Panel: No Data to Display Coagulation Panel: No Data to Display Cardiac Panel: No Data to Display Arterial Blood Gas: No Data to Display Venous Blood Gas: No Data to Display Pancreas Panel: No Data to Display Thyroid Panel: No Data to Display Infectious Disease: No Data to Display Blood Cultures: No Data to Display Toxicology Panel: No Data to Display Imaging and Studies Imaging and Studies Study information below may be from another EMR and interpreted by another provider. Please see original notes in EMR for more complete details. Carotid Artery Summary:: 08/13: mild plaque bilaterally, less than 50% stenosis bilaterally. Anesthesia Assessment and Plan Anesthesia History Personal History: No History of Anesthesia Complications and Other ( mentioned a medication that she can't remember the name of that caused postop confusion for pt after a surgery many years ago ) Family History: No Family History of Anesthesia Complications Exercise Tolerance Exercise Tolerance: Metabolic Equivalents<4 Pertinent Negatives Pertinent Negatives: No Symptoms of GERD, No Major Cardiovascular Symptoms or Complaints and No Major Pulmonary Symptoms or Complaints Cardiac & Pulmonary Exam Cardiac Exam: Normal S1/S2 Heart Sounds Pulmonary Exam: Wheezing Present (R side ) Implantable Cardiac Device Does patient have a Pacemaker or an ICD?: No Airway Exam Known Difficult Airway: No Mallampati Class: 2 Mouth Opening: Normal (> 3cm) Thyromental Distance: Greater than 3 cm Neck Range of Motion: Full ROM Neck Circumference: Normal Teeth Condition: Edentulous ASA Classification ASA Score: ASA 3 Emergency Case?: No NPO Status NPO Status: NPO Clears >2 hours, Solids >8 hours Anesthesia Plan Resuscitation Status: Full Code Anesthesia Technique: General Anesthesia Airway Planned: Endotracheal Tube Pain Management: Surgeon and patient request nerve block Monitors Used: Standard Monitors Preoperative Comments:: 73 yo male for bilateral inguinal hernia repair. Sig PMHx: CVA (MCA), preDM, smoker, former EtOH. Previous Anes: - BRITT, spinal, prop sedation, natural airway, no issues. - multiple TURBT, prop, natural airway, no issues. - cysto, LMA 4, no issues. Duoneb ordered preop
[2024-01-28] VITALS (8 sets, daily range): BP systolic 115–150; BP diastolic 53–97; PULSE 63–74; RESP 13–19; TEMP 36.1–36.5; O2SAT 94–95; BMI 30.7
[2024-01-28] MEDS: Lactated Ringers 1,000 ML 80 ML IV (06:57)
[2024-01-28] MEDS: Gabapentin 300 MG CAP PO (07:01)
[2024-01-28] MEDS: Acetaminophen 500 MG TAB 1000 MG PO (07:01)
[2024-01-28] MEDS: Albuterol/Ipratropium 3 ML UPD VIAL UPD (07:21)
[2024-01-28] MEDS: ceFAZolin 2 GM/50 ML BAG IVPB (07:50)
--- NOTE | 2024-01-28 08:43 | W.ANESNERVE ---
Nerve Block Single Injection Procedure Date and Time Date Performed: 01/28/24 Procedure Start: 07:40 Location Where Procedure Performed Procedure Location: Operating Room Procedure Stop: 07:50 Reason Performed: Postoperative Analgesia Requesting Provider: Zackary Meza Timeout Performed Timeout Performed: Yes Monitoring Used ECG, Blood Pressure, SpO2, ETCO2 and See EMR for corresponding vital signs Sterility Sterility: Hand Hygiene, Surgical Cap, Surgical Mask, Sterile Gloves and Chlorhexidine Sedation Given During Procedure Sedation Given (Indicate Dose Given): No Sedation given Patient Mental Status Patient Mental Status: Performed under general anesthesia Nerve Block 1st Nerve Block: Laterality: Bilateral Block Type: TAP Bilateral Ultrasound Image Saved?: Yes Needle / Catheter Used: 100mm SonoPlex II Local Anesthetic Bolus (Indicate Dose Given): Injected in 3-5ml increments after negative blood aspiration, Half of Total block solution given into each side and Bupivacaine 0.25% Dose:: 30mL Additives (Indicate Dose Given): Epinephrine to make 1:200,000 (5mcg/ml) Dose:: 150mcg and Decadron Dose:: 8mg Ultrasound: Sterile probe cover and gel used Nerve Stimulator: Not Used Paresthesia: None Procedure Tolerated: No Complications and Patient tolerated well Procedure Outcome: Successful Performed By: Angeles Perry Supervised By: Monroe Dean
--- NOTE | 2024-01-28 10:09 | W.ANESPOSTOP ---
Postoperative Evaluation Date, Time and Location Date Performed: 01/28/24 Time Performed: 10:09 Patient Location: PACU Vital Signs Most Recent Imported Vital Signs: Most Recent Vital Signs Temp Pulse Resp BP Pulse Ox 36.5 C 69 15 150/90 H 95 01/28/24 09:58 01/28/24 09:58 01/28/24 09:58 01/28/24 09:58 01/28/24 09:58 Pain Score Most Recent Pain Score: Most Recent Pain Score Pain Level 0 01/28/24 06:20 Assessment Mental Status: Awake (Alert & Oriented to Patient Baseline) Airway and Respiratory Function: Patent airway with normal (patient baseline) respiratory exam Cardiovascular Function: Hemodynamically Stable Hydration Status: Adequately Hydrated Nausea & Vomiting: No Nausea or Vomiting Pain: Pain is tolerable per patient Peripheral Nerve Block: Regional nerve block not resolved at time of post operative discharge
[2024-01-28] MEDS: Ketorolac 15 MG/ML VIAL IVP (10:11)
== END 2024-01-28 11:50 | disposition home or self-care (01) ==
LOC: SUR 06:04
PROVIDERS: PCP Family Medicine; Visit Provider Surgery
PROC: (CPT 49505; principal; 2024-01-28 07:30)
DX: K40.20 Bilateral inguinal hernia, without obstruction or gangrene, not specified as recurrent (principal)
CPT/HCPCS: 49505; 76942; C1781; J0665; J0690; J1100; J1805; J1885; J2001; J2371; J2405; J2704; J3010; J7620

== ENCOUNTER → 2024-02-09 11:10 | Outpatient (BNVA) | payer MEDICARE, SELFPAY | PROVIDERS: PCP Family Medicine; Referring Provider Family Medicine; Visit Provider Surgery | DX: Z48.817 Encounter for surgical aftercare following surgery on the skin and subcutaneous tissue (principal) ==

== ENCOUNTER → 2024-02-18 09:55 | Outpatient (BNVA) | payer MEDICARE, SELFPAY | PROVIDERS: PCP Family Medicine; Referring Provider Family Medicine ==

== ENCOUNTER 2024-02-18 11:20 | Outpatient (CLI) | payer MEDICARE, SELFPAY ==
--- NOTE | 2024-02-18 09:45 | DI.RAD_ITS ---
Exam(s) XR HIP LT AP LAT ONLY EXAM: XR HIP LT AP LAT ONLY CLINICAL HISTORY: ANNUAL F/U L BRITT. TECHNIQUE: 2D digital imaging was performed. Two images were obtained. AP and lateral views were ob tained. COMPARISON: CR XR HIP LT COMPLETE AP PELVIS from 03/01/2023 FINDINGS: BONES: There are stable post operative changes of a left total hip replacement present. No fracture or dislocation. JOINTS: The orthopedic hardware is in good position. No evidence of hardware loosening. SOFT TISSUE: Vascular calcifications are present. IMPRESSION: Stable left total hip replacement. DATA REPOSITORY: RADIATION DOSE DELIVERED:
== END 2024-02-18 11:21 | disposition home or self-care (01) ==
LOC: DIORS 11:20
PROVIDERS: PCP Family Medicine; Referring Provider Family Medicine; Visit Provider Physician Assistant
DX: Z96.642 Presence of left artificial hip joint (principal); Z47.1 Aftercare following joint replacement surgery
CPT/HCPCS: 99213; 73502

== ENCOUNTER → 2024-05-12 12:59 | Outpatient (BNVA) | payer MEDICARE, SELFPAY | PROVIDERS: PCP Family Medicine; Visit Provider Urology | DX: C67.8 Malignant neoplasm of overlapping sites of bladder (principal) | CPT/HCPCS: 52000; 81003 ==

== ENCOUNTER → 2024-06-27 00:58 | Outpatient (CLI) | payer MEDICARE, SELFPAY ==
--- NOTE | 2024-06-27 11:00 | DI.CTLCSR_ITS ---
Exam(s) CT CHEST LUNG CANCER SCREEN EXAM: CT CHEST LUNG CANCER SCREEN CLINICAL HISTORY: Screening for lung cancer,CURRENT SMOKER, F17.210. TECHNIQUE: Imaging Protocol: Low Dose Technique CONTRAST MATERIAL: None COMPARISON: CT RENAL COLIC WO CONTRAST from 04/09/2016 CR,XR XR PORTABLE CHEST AP from 11/30/[address] CHEST HIGH RESOLUTION from 12/25/2021 FINDINGS: CHEST: LUNGS: There is a tiny calcified granuloma in the right lower lobe, unchanged from the previous study .. Higher up in the right lower lobe there is a ground-glass nodular infiltrate measuring 11 x 7 mm, slightly larger than 2021. Lower down in the right lower lobe there is a 6 mm nodular density which was not evident on the prior study. No new left lung findings. No pleural effusions. No significa nt findings in the trachea and mainstem bronchi. MEDIASTINUM: There is no obvious hilar nor mediastinal adenopathy. CARDIAC: Heart size is normal. There is no pericardial effusion.Caliber of the thoracic aorta is wit hin normal limits. OTHER: Hiatal hernia noted. Moderate size. No adrenal masses. Multiple calcifications throughout t he pancreas are noted consistent with chronic pancreatitis, similar to previous. Spleen size normal. Hypodensity noted in the left kidney which is probably a cyst but difficult to assess accurately on this type of low-dose study and is only partially included in the field of view and appears to have increased in size from prior study. OSSEOUS: No significant osseous lesions.No fractures. IMPRESSION: 1. Compared to prior CT scan of 12/25/2021 there is a new 6 millimeter nodule in the right lower lobe and the ground-glass nodular infiltrate in the right lower lobe is also slightly increased in size, presently measuring 11 x 7 mm. Recommend repeat scan in 6 months. No new left lung findings. 2. Incidental left kidney partially included finding as above. Follow-up kidney ultrasound recommend ed. 3. Lung RADS Cat 3 - Probably Benign: Probably benign finding(s) -6 month short term follow-up CT sca n suggested; include nodules with a low likelihood of becoming a clinically active cancer. Lung-RADS 1.0 CATEGORIES: Category 0 - Prior chest CT exam(s) being located for comparison. Category 1 - Annual screening in 12 months. No nodules or definitely benign nodules. Category 2 - Annual screening in 12 months. Benign appearance. Nodules with low likelihood of becomin g active cancer. Category 3 - 6-month follow-up. Probably benign. Short-term follow-up suggested. Nodules with low lik elihood of becoming active cancer. Category 4A - 3-month follow-up and CT/PET if >8 mm in size. Suspicious finding. Findings which requi re additional testing. Category 4B - Findings which require additional testing and tissue sampling. Category 4X - Category 3 or 4 nodules with additional features or imaging findings that increases the suspicion of malignancy. Modifier S- Potentially clinically significant findings (non lung cancer) RADIATION DOSE DELIVERED: Total DLP DATA REPOSITORY: All CT scans at this facility are submitted to the National Radiology Data Registry (NRDR) Dose Index Registry (DIR) with the [employer] ([employer]). RADIATION OPTIMIZATION: All CT scans at this facility use at least one of these dose optimization te chniques: automated exposure control; mA and/or kV adjustment per patient size (includes targeted exa ms where dose is matched to clinical indication); or iterative reconstruction.
== END ==
PROVIDERS: PCP Family Medicine; Visit Provider Family Medicine
DX: F17.210 Nicotine dependence, cigarettes, uncomplicated (principal); R91.1 Solitary pulmonary nodule
CPT/HCPCS: 71271

== ENCOUNTER 2024-06-27 02:31 | Outpatient (CLI) | payer MEDICARE, SELFPAY ==
[2024-06-27 11:10] LABS: Calculated LDL 18 mg/dL (<100); Cholesterol 78 mg/dL (<200); Estimated GFR 80.47 (mL/min/1.73m2); HDL Cholesterol 31 mg/dL (40-60); Triglyceride 145 mg/dL (<150)
[2024-06-27 18:46] LABS: Hemoglobin A1C 6.4 % (<5.7)
== END 2024-06-27 02:32 | disposition home or self-care (01) ==
LOC: LBO 02:31
PROVIDERS: PCP Family Medicine; Visit Provider Family Medicine
DX: I10 Essential (primary) hypertension (principal); E11.51 Type 2 diabetes mellitus with diabetic peripheral angiopathy without gangrene; I70.209 Unspecified atherosclerosis of native arteries of extremities, unspecified extremity; E78.5 Hyperlipidemia, unspecified
CPT/HCPCS: 36415; 80061; 82565; 83036

== ENCOUNTER 2024-07-11 01:31 | Outpatient (CLI) | payer MEDICARE, SELFPAY ==
--- NOTE | 2024-07-11 07:30 | DI.US_ITS ---
Exam(s) US RENAL EXAM: US RENAL CLINICAL HISTORY: left kidney cyst seen on CT,LT KIDNEY MASS,N28.89. TECHNIQUE: Kumar scale, color and spectral Doppler were used. COMPARISON: CT CT ABDOMEN PELVIS W from 11/30/[address] CHEST LUNG CANCER SCREEN from 06/27/2024 FINDINGS: Right kidney: 11.4cm Echogenicity: Normal Hydronephrosis: No Cyst or mass: No Nephrolithiasis: No Left kidney: 11.7cm Echogenicity: Normal Hydronephrosis: No Cyst or mass: Parapelvic simple cyst measuring 6.2 x 3.6 x 4.1 cm. This is mildly increased from the prior exam. No suspicious findings. Nephrolithiasis: Calcifications upper and lower poles of the left kidney which may be vascular based on prior CT. Bladder:Normal. Prevoid vol: 134 cc Postvoid vol:4 cc Prostate enlarged with volume of 41 cc. IMPRESSION: Simple parapelvic cyst of the left kidney. No follow-up recommended. DATA REPOSITORY:
== END 2024-07-11 01:51 ==
PROVIDERS: PCP Family Medicine; Visit Provider Family Medicine
DX: N28.89 Other specified disorders of kidney and ureter (principal)
CPT/HCPCS: 76770

== ENCOUNTER → 2025-07-20 12:58 | Outpatient (BNVA) | payer MEDICARE, SELFPAY | PROVIDERS: PCP Family Medicine; Visit Provider Urology | DX: C67.9 Malignant neoplasm of bladder, unspecified (principal); N28.89 Other specified disorders of kidney and ureter | CPT/HCPCS: 81002; 52000 ==

== ENCOUNTER 2025-08-22 04:07 | Outpatient (CLI) | payer MEDICARE, SELFPAY ==
[2025-08-22 13:52] LABS: Estimated GFR 79.47 (mL/min/1.73m2)
[2025-08-22 23:32] LABS: Hepatitis C Ab w Rflx HCV PCR Negative (Negative)
[2025-08-22 23:35] LABS: HIV-1/2 Ag & Ab Screen Negative (Negative)
[2025-08-22 23:38] LABS: HBs Antibody, Quant <3.1 mIU/mL (See Note); Hepatitis B Surface Antigen Negative (Negative)
== END 2025-08-22 04:08 | disposition home or self-care (01) ==
PROVIDERS: PCP Family Medicine; Visit Provider Family Medicine
DX: Z11.59 Encounter for screening for other viral diseases (principal); I10 Essential (primary) hypertension
CPT/HCPCS: 36415; 86704; 86706; 86803; 87340; 87389; 82565